=== PATIENT | female | born 1950 | race Caucasian/White ===

== ENCOUNTER 2019-11-16 11:11 | Outpatient (CLI) | payer BC, SELFPAY ==
--- NOTE | 2019-11-16 11:23 | XRR_ITS ---
PROCEDURE INFORMATION: Exam: XR Bilateral Hips with Pelvis when Performed Exam date and time: 11/16/2019 11:55 AM Age: 69 years old Clinical indication: Hip pain; Bilateral; Additional info: Pain in left hip TECHNIQUE: Imaging protocol: XR bilateral hips with pelvis when performed. Views: 2 views. COMPARISON: CR XR hip RT 2-3V wo/w pel* [id number] 11/16/2019 11:44 AM FINDINGS: Bones/joints: Unremarkable. No acute fracture. Soft tissues: Unremarkable. XR/XR hip BI 3-4V wo/w pel [id number] IMPRESSION: No acute findings.
--- NOTE | 2019-11-16 11:23 | XR_ITS ---
WS: [id number] Lumbar spine, 3 views, 11/16/2019 Clinical Data: LUMBAGO W/R SIDED SCIATICA Comparison: Lateral lumbar spine, 05/22/2017. Lumbar spine, 08/20/2015. Findings: There is a levoscoliosis with a compression fracture of L3 unchanged from 5 years ago. Osteoarthritis of the anterior vertebral bodies L1-L5 can be seen. The disc heights are diminished at L1-L2, L2-L3 and L3-L4. The transverse processes and SI joints are nonremarkable. There is calcification of the wall of the a bdominal aorta but no aneurysm. There are clips in the right upper quadrant from a cholecystectomy. T here is a large amount of fecal material throughout the colon. XR/XR lumbar spine 2-3V* [id number] Impression: 1. Levoscoliosis with old L3 compression fracture. 2. Multilevel osteoarthritis in disc narrowing unchanged.
== END 2019-11-16 11:12 | disposition home or self-care (01) ==
LOC: RAD 11:18
PROVIDERS: Family Provider Family Medicine; PCP Family Medicine; Visit Provider Nurse Practitioner
DX: M54.41 Lumbago with sciatica, right side (principal); M47.896 Other spondylosis, lumbar region; M25.552 Pain in left hip; M25.551 Pain in right hip
CPT/HCPCS: 72100; 73502; 73522

== ENCOUNTER 2020-03-26 10:56 | Outpatient (CLI) | payer MEDICARE, SELFPAY ==
--- NOTE | 2020-03-26 11:09 | MM_ITS ---
WS: [id number] BILATERAL SCREENING DIGITAL MAMMOGRAM WITH CAD HISTORY: SCREENING COMPARISON: 11/27/2015 Bilateral CC and MLO views submitted. Computer aided detection analyzed. Breast composition: There are scattered areas of fibroglandular density. No suspicious masses, microc alcifications or architectural distortion. Benign vascular calcifications in each breast. Stable lymp h node in the LEFT axillary tail. MM/[place] [id number] IMPRESSION: BI-RADS: 2-Benign FOLLOW UP: 1 Year Follow-up
== END 2020-03-26 10:57 | disposition home or self-care (01) ==
LOC: RADSHAW 11:06
PROVIDERS: PCP Family Medicine; Visit Provider Plastic Surgery
DX: Z12.31 Encounter for screening mammogram for malignant neoplasm of breast (principal)
CPT/HCPCS: 77067

== ENCOUNTER → 2021-04-05 14:14 | Outpatient (BNVA) | payer MEDICARE, SELFPAY | PROVIDERS: PCP Family Medicine; Visit Provider Emergency Medicine | DX: Z01.812 Encounter for preprocedural laboratory examination (principal); Z20.822 Contact with and (suspected) exposure to COVID-19 | CPT/HCPCS: 87635 ==

== ENCOUNTER 2021-07-08 11:36 | Outpatient (CLI) | payer MEDICARE, SELFPAY ==
--- NOTE | 2021-07-08 11:45 | MM_ITS ---
WS: [id number] BILATERAL DIGITAL SCREENING MAMMOGRAPHY WITH CAD CLINICAL INFORMATION: SCREENING HISTORY: Screening mammogram. No current complaints. COMPARISON: March 26, 2020 TECHNIQUE: Bilateral CC and MLO views. FINDINGS: Scattered fibroglandular densities bilaterally. Vascular calcification. Benign punctate calcification s. No suspicious focal mass, asymmetry, calcifications, or architectural distortion. No evidence of m alignancy. MM/[place] [id number] IMPRESSION: BI-RADS: 2-Benign FOLLOW UP: 1 Year Follow-up Recommend return to annual screening mammography.
== END 2021-07-08 11:37 | disposition home or self-care (01) ==
LOC: RADSHAW 11:43
PROVIDERS: PCP Family Medicine; Visit Provider Nurse Practitioner Family
DX: Z12.31 Encounter for screening mammogram for malignant neoplasm of breast (principal)
CPT/HCPCS: 77067

== ENCOUNTER 2021-12-04 12:09 | Outpatient (CLI) | payer MEDICARE, SELFPAY ==
--- NOTE | 2021-12-04 12:16 | XRR_ITS ---
PROCEDURE INFORMATION: Exam: XR Right Foot Exam date and time: 12/04/2021 12:16 PM Age: 71 years old Clinical indication: Right; Patient HX: C/O RT foot pain. Had recent ingrown toenail and got infected on great toe. ; Additional info: Right foot pain TECHNIQUE: Imaging protocol: XR Right foot. Views: 3 or more views. COMPARISON: No relevant prior studies available. FINDINGS: Bones/joints: Negative for acute bony abnormality. Soft tissues: Normal. XR/XR foot RT min 3V* [id number] IMPRESSION: No acute findings.
== END 2021-12-04 12:10 | disposition home or self-care (01) ==
LOC: RAD 12:12
PROVIDERS: PCP Nurse Practitioner Family; Visit Provider Nurse Practitioner Family
DX: M79.671 Pain in right foot (principal)
CPT/HCPCS: 73630

== ENCOUNTER 2022-01-30 21:43 | Emergency (ER) | payer MEDICARE, SELFPAY ==
[2022-01-30 22:45] VITALS: BP 147/87; PULSE 90; RESP 20; TEMP 36.6; O2SAT 94
--- NOTE | 2022-01-30 23:29 | W.ED.EYEPROB ---
HPI - Eye Problem General: Chief complaint: Eye Problems Stated complaint: Spider bite on left eye/cheek Time Seen by Provider: 01/30/22 23:20 History of Present Illness: 71-year-old female comes in today with swelling to the left face. Patient reports about 8:00 this morning she was storing away her when her close into the closet. Patient felt a sting to the left side of her face. Throughout the day patient's had increased swelling and tenderness to the left side of the face. Patient believes it was a wasp. Family reports that they did find a wasp or hornet that was flying around. Patient has some significant swelling and pain to the area. Patient denies any shortness of breath or chest discomfort Associated symptoms: Denies fever(s) or neck pain Review of Systems Const: Denies: fever(s) Card: Denies: chest pain Resp: Denies: dyspnea Musc: Denies: neck pain or back pain Skin/Breast: Reports: skin swelling and new lesions All/Imm: Reports: facial swelling Physical Exam Const: COMMON NORMALS: alert HENMT: COMMON NORMALS: TM's normal bilaterally and Normal external nose present HEAD & SCALP: other (Right scratch that left facial cheek and periorbital swelling) NOSE: Normal external nose present TYMPANIC MEMBRANE: TM's normal bilaterally MOUTH: Normal oral and palatal mucosa present THROAT: posterior oropharynx normal Neck/C-Spine: COMMON NORMALS: full ROM Resp: COMMON NORMALS: normal respiratory effort and clear to auscultation bilaterally AUSCULTATION: clear to auscultation bilaterally Cardio: COMMON NORMALS: regular rate and regular rhythm RATE: regular rate RHYTHM: regular rhythm Extremity: COMMON NORMALS: normal to inspection Neuro: SENSORIUM/ORIENTATION: Yes alert Skin: COMMON NORMALS: no rashes or lesions noted GENERAL SKIN EXAM: no rashes or lesions noted Course Vital Signs: Vital signs: Vital Signs Temperature 97.8 F 01/30/22 22:45 Pulse Rate 90 01/30/22 22:45 Respiratory Rate 20 H 01/30/22 22:45 Blood Pressure 147/87 01/30/22 22:45 Pulse Oximetry 94 01/30/22 22:45 MDM - Eye Problem Medical Decision Making 71-year-old female comes in today with facial swelling to the left periorbital area. Patient reported being stung or bitten by a wasp this morning. On exam patient has significant swelling to the periorbital region of the left face. Visualization of the left eye indicates no abnormality and patient is able to visualize without any difficulty. No oropharyngeal swelling is noted. Respirations are even lungs are clear to auscultation. Vital signs are normal. Differential diagnosis includes not limited to local reaction to insect bite, allergic reaction, cellulitis. No signs of infection are noted at this time. We will go ahead and treat with steroids to help with the swelling around the face. Recommended patient monitor for fever. Recommend return to the ER for any signs of fever or worsening symptoms such as difficulty breathing, nausea vomiting, or chest pain. Patient and family both reported understanding. Discharge Plan Discharge Patient Disposition: Home Clinical Impression: Insect bite of face with local reaction Qualifiers: Encounter type: initial encounter Qualified Code(s): S00.86XA - Insect bite (nonvenomous) of other part of head, initial encounter Condition: Stable Prescriptions: New prednisone 20 mg tablet 60 mg PO DAILY 5 Days Qty: 15 0RF No Action albuterol sulfate 2.5 mg /3 mL (0.083 %) solution for nebulization 2.5 mg inhalation Q4H PRN0RF triamcinolone acetonide [Nasacort] 55 mcg aerosol,spray 1 spray intranasal DAILY 0RF Rx Instructions: administer into each nostril Discharge Orders: Discharge ED (Routine); Ordered 01/30/22 Ordered By: Sam Guadalupe Referrals: Kayy Carter FNP [Primary Care Provider] - Discharge Diet: Usual diet Discharge Activity: Increase activity as tolerated Patient Instructions: Insect Bite or Sting (ED) Activity Restrictions/Additional Instructions: Home and rest. Take Zyrtec or Claritin 1 tablet twice a day to help with swelling and itching. Drink plenty of water. You can use acetaminophen and ibuprofen for pain. Make sure to elevate your head for the next 2 to 3 days to help prevent worsening swelling at night. Follow-up with primary care in 3 days for recheck. Return to ER for worsening symptoms such as uncontrolled pain, high fever greater than 100.4, or difficulty breathing. Coding Level of Care Code ED Instructional Technology Teacher for Booker Yadav
[2022-01-31] MEDS: dexamethasone 10 mg/mL INJ IM (00:04)
[2022-01-31] MEDS: methylPREDNISolone (DEPO) 80 MG/ML INJ 1 mL IM (00:04)
[2022-01-31] MEDS: HYDROcodone-acetaminophen 5-325 mg Tablet 1 TAB PO (00:04)
== END 2022-01-31 00:44 | disposition home or self-care (01) ==
PROVIDERS: Emergency Provider Nurse Practitioner Family; PCP Nurse Practitioner Family
DX: T63.441A Toxic effect of venom of bees, accidental (unintentional), initial encounter (principal); R22.0 Localized swelling, mass and lump, head
CPT/HCPCS: 96372; 99283; J1040; J1100

== ENCOUNTER 2022-03-07 14:51 | Emergency (ER) | payer MEDICARE, SELFPAY ==
[2022-03-07 15:00] VITALS: BP 139/82; PULSE 116; RESP 16; TEMP 37.9; O2SAT 96; BMI 27.1
--- NOTE | 2022-03-07 15:29 | ECG_ITS ---
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 Measurements Intervals [place] Rate: 103 P: 65 FL: 175 QRS: 67 QRSD: 79 T: 70 QT: 346 QTc: 455 Interpretive Statements SINUS TACHYCARDIA No previous ECG available for comparison Electronically Signed On 03-07-2022 20:42:06 CDT by Wallace Peña M.D. [id number]
--- NOTE | 2022-03-07 16:28 | ED_ITS ---
HPI - General Adult General: Chief complaint: General Medical Stated complaint: heart racing/headache Time Seen by Provider: 03/07/22 16:11 History of Present Illness: Patient is a 71-year-old female with history of diabetes, hypertension who presents the emergency room with concerns of palpitation and headache. Patient tells me that she drank two cups of coffee and went gardening outside and stayed outside for longer period time than usual. Patient tells me that she came home at 10 and around 1130 this morning, she noted palpitation and headache. Patient denies any diaphoresis, chest pain, shortness of breath, headedness or syncope. Patient says that this only lasted for few minutes. However throughout the rest of the day, patient has had similar episodes of palpitation. Most recently, patient had an episode of palpitation lasting for about a minute in triage. Patient again denies any active chest pain or shortness of breath or focal neurological deficits. Patie nt denies any thyroid issues. Denies nausea/vomiting, fever/chill, abdominal pain, dysuria/hematuria/polyuria, diarrhea/melena/hematochezia. Patient denies that this headache is not worst headache of life and sudden in onset. Headache only lasted for few minutes and then was clear. Patient has no family history of aneurysms or family history of headaches. Patient denies any active palpitation at the current time. Onset:11:30am Duration:intermittent lasting for a minute at a time Location:home Severity:moderate Associated symptoms: Reports headache(s) and palpitations; Deny chest pain, dyspnea, nausea, rash or vomiting Review of Systems Const: Denies: fever(s) or chills Eyes: Denies: change in vision ENMT: Denies: mouth pain Card: Reports: palpitations; Denies: chest pain Resp: Denies: dyspnea or non-productive cough GI: Denies: abdominal pain, nausea, vomiting or diarrhea : Denies: dysuria Musc: Denies: extremity pain Skin/Breast: Denies: rash or new lesions Neuro: Reports: headache(s); Denies: weakness in extremities Psych: Reports: other (Normal mood) Rasheed/Lymph: Denies: easy bruising PFS ED PFSH: Medical History (Updated 03/07/22 @ 21:17 by Adam Tolliver MD) Diabetes Hypertension Palpitations Social History Smoking and tobacco status: former smoker Alcohol intake: never Physical Exam Const: COMMON NORMALS: alert HENMT: COMMON NORMALS: atraumatic HEAD & SCALP: atraumatic MOUTH: moist mucous membranes not abnormal Eye: COMMON NORMALS: EOMs intact bilaterally and conjunctivae normal CONJUNCTIVA: Yes conjunctivae normal Neck/C-Spine: COMMON NORMALS: full ROM and supple Resp: COMMON NORMALS: normal respiratory effort and clear to auscultation bilaterally AUSCULTATION: clear to auscultation bilaterally Cardio: RATE: tachycardic GI: COMMON NORMALS: Soft to palpation and non-tender PALPATION: Yes Soft to palpation Extremity: COMMON NORMALS: full ROM Neuro: SENSORIUM/ORIENTATION: Yes alert MOTOR EXAM: No Abnormal motor strength present and Other motor observations present (no focal motor deficits) Psych: COMMON NORMALS: speech normal SPEECH: Yes normal speech MOOD & AFFECT: Yes euthymic mood Course Vital Signs: Vital signs: Vital Signs Temperature 98.9 F 03/07/22 19:54 Pulse Rate 88 03/07/22 21:30 Respiratory Rate 16 03/07/22 21:30 Blood Pressure 160/85 03/07/22 21:30 Pulse Oximetry 98 03/07/22 21:30 MDM - General Adult Medical Decision Making Patient is 71-year-old female with history of diabetes, hypertension presents emergency room for intermittent palpitation with 1 episode of headache. On arrival, patient is Nuchal rigidity. Neurologically intact. Patient has no complaints of palpitation currently. Patient was observed on telemetry without any focal findings. EKG is nonischemic. Troponin x2 within normal limit. TSH/T4 within normal limit. Patient received 1 L fluid. Patient is able to ambulate without difficulty. Patient is able tolerate p.o. Troponin 45. Patient had a repeat troponin of 32. Patient has no complaints of palpitation. 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 Discussed case with Dr. Peña who recommended outpatient event monitor and a script for metoprolol should patient have further palpitations. I have given patient follow up with our corrections caseworker to be seen by our outpatient Dr. Peña for palpitations. Patient aware of a call from our corrections caseworker to schedule for appointment(s) and verbalizes understanding of the importance of following up. Rx metoprolol PRN palpitations Disposition: Discharge. Patient counseled regarding diagnostic impression, treatment plan. Patient given ED strict return precautions to return for continu ation, worsening, or development of new symptoms. Instructed to f/u w/ PCP regarding symptoms today. Patient verbalized understanding. Lab Data : 03/07/22 16:20 03/07/22 16:20 Laboratory Results WBC 8.7 10^3/uL (4.0-10.0) 03/07/22 16:20 RBC 3.95 10^6/uL (4.1-5.3) L 03/07/22 16:20 Hgb 13.0 g/dL (11.5-15.3) 03/07/22 16:20 Hct 36.7 % (37.0-47.0) L 03/07/22 16:20 MCV 92.9 fl (81-99) 03/07/22 16:20 MCH 32.9 pg (28.0-34.0) 03/07/22 16:20 MCHC 35.4 g/dL (30.0-36.0) 03/07/22 16:20 RDW 12.6 % (12.1-15.1) 03/07/22 16:20 Plt Count 391 10^3/cmm (130-400) 03/07/22 16:20 MPV 9.5 fL (7.4-10.4) 03/07/22 16:20 Neut % (Auto) 69.6 % 03/07/22 16:20 Lymph % (Auto) 17.3 % 03/07/22 16:20 Simpson % (Auto) 11.8 % 03/07/22 16:20 Eos % (Auto) 0.3 % 03/07/22 16:20 Baso % (Auto) 0.7 % 03/07/22 16:20 Neut # (Auto) 6.07 10^3/uL (1.8-7.7) 03/07/22 16:20 Lymph # (Auto) 1.5 10^3/uL (0.8-4.8) 03/07/22 16:20 Simpson # (Auto) 1.0 10^3/uL (0.2-0.9) H 03/07/22 16:20 Eos # (Auto) 0.0 10^3/uL (0.0-0.8) 03/07/22 16:20 Baso # (Auto) 0.1 10^3/uL (0.0-0.1) 03/07/22 16:20 Nucleated RBC % (auto) 0 % 03/07/22 16:20 Nucleated RBCs # 0.0 /100WBC 03/07/22 16:20 Sodium 133 mmol/L (136-145) L 03/07/22 16:20 Potassium 3.3 mmol/L (3.5-5.1) L 03/07/22 16:20 Chloride 96 mmol/L (98-107) L 03/07/22 16:20 Carbon Dioxide 22 mmol/L (22-29) 03/07/22 16:20 Anion Gap 18.3 (5-19) 03/07/22 16:20 BUN 19 mg/dL (8-23) 03/07/22 16:20 Creatinine 1.2 mg/dL (0.5-0.9) H 03/07/22 16:20 GFR Calculation Not Reportable 03/07/22 16:20 Glucose 248 mg/dL (65-115) H 03/07/22 16:20 Calculated Osmolality 287 mOsm/kg (285-295) 03/07/22 16:20 Calcium 9.2 mg/dL (8.5-10.5) 03/07/22 16:20 Troponin T Baseline 45 ng/L (0-10) H 03/07/22 16:20 Troponin T 120 Minute 32.70 ng/L (0-10) H 03/07/22 20:00 Delta Troponin T -12.30 ABS# (0-10) L 03/07/22 20:00 TSH 2.15 uIU/mL (0.27-4.20) 03/07/22 16:20 Free T4 1.16 ng/dL (0.82-1.77) 03/07/22 16:20 Discharge Plan Discharge Patient Disposition: Home Clinical Impression: Palpitations Condition: Stable Prescriptions: New metoprolol tartrate 25 mg tablet 25 mg PO DAILY PRN (Reason: palpitations) Qty: 10 0RF No Action albuterol sulfate 2.5 mg /3 mL (0.083 %) solution for nebulization 2.5 mg inhalation Q4H PRN (Reason: Shortness Of Breath) 0RF triamcinolone acetonide [Nasacort] 55 mcg aerosol,spray 1 spray intranasal DAILY 0RF Rx Instructions: administer into each nostril trandolapril 4 mg tablet 4 mg PO DAILY 0RF ibuprofen 800 mg tablet 800 mg PO TID PRN (Reason: Pain) 0RF hydrocodone-acetaminophen 5-325 mg tablet 1 tab PO BID PRN (Reason: Pain) 0RF diltiazem HCl 360 mg capsule,extended release 24 hr 360 mg PO DAILY 0RF amlodipine 5 mg tablet 5 mg PO DAILY 0RF simvastatin 40 mg tablet 40 mg PO DAILY 0RF alprazolam 0.5 mg tablet 0.5 mg PO DAILY 0RF baclofen 10 mg tablet 10 mg PO BID PRN (Reason: Pain) 0RF paroxetine HCl 20 mg tablet 20 mg PO DAILY 0RF omeprazole 20 mg Capsule,Delayed Release(Dr/Ec) 20 mg PO DAILY 0RF epinephrine 0.3 mg/0.3 mL auto-injector See Rx Instructions .ROUTE .COMPLEX 0RF Rx Instructions: as directed Zyrtec 10 mg Capsule 10 mg PO BID 0RF Discharge Orders: Discharge ED (Routine); Ordered 03/07/22 Ordered By: Adam Tolliver Other Ambulatory Orders: ECG holter monitor 14 Days (Routine) Timeframe: 2 Weeks Facility: [facility] - Location: Radiology Ordered By: Adam Tolliver Referrals: Kayy Carter FNP [Primary Care Provider] - Discharge Diet: Advance as tolerated Discharge Activity: Increase activity as tolerated Activity Restrictions/Additional Instructions: Our corrections caseworker will have you follow-up with Cardiology in the next few days. You would be expected to have a phone call with our corrections caseworker who will put you on the schedule. You can expect a call from us in the next 2-3 days. If you don't hear from us, call us back in the emergency room at [phone]. Please use your event monitor for your symptoms. Take metoprolol Come back to the emergency room if your chest pain worsens, have any fever or chills, worsening shortness of breath, worsening exertional lightheadedness, or any new or concerning complaints. Coding Level of Care Code ED Aircraft Engine Assembler for Booker Yadav Exam Comprehensive
[2022-03-07 16:34] LABS: Basophils # 0.1 10^3/uL (0.0-0.1); Basophils % 0.7 %; Eosinophils % 0.3 %; Hematocrit 36.7 % (37.0-47.0); Lymphocytes # 1.5 10^3/uL (0.8-4.8); Lymphocytes % 17.3 %; Mean Corpuscular HGB Conc 35.4 g/dL (30.0-36.0); Mean Corpuscular Hemoglobin 32.9 pg (28.0-34.0); Mean Corpuscular Volume 92.9 fl (81-99); Mean Platelet Volume 9.5 fL (7.4-10.4); Monocytes % 11.8 %; Neutrophils # 6.07 10^3/uL (1.8-7.7); Neutrophils % 69.6 %; Nucleated Red Blood Cells % 0 %; Platelet Count 391 10^3/cmm (130-400); Red Blood Count 3.95 10^6/uL (4.1-5.3); Red Cell Distribution Width 12.6 % (12.1-15.1); White Blood Count 8.7 10^3/uL (4.0-10.0)
[2022-03-07 16:54] LABS: Anion Gap 18.3 (5-19); Blood Urea Nitrogen 19 mg/dL (8-23); Calcium 9.2 mg/dL (8.5-10.5); Carbon Dioxide 22 mmol/L (22-29); Chloride 96 mmol/L (98-107); Glucose 248 mg/dL (65-115); Osmolality Calculated 287 mOsm/kg (285-295); Potassium 3.3 mmol/L (3.5-5.1); Sodium 133 mmol/L (136-145)
[2022-03-07] MEDS: sodium chloride 0.9% 1,000 ML 999 ML IV (17:01)
[2022-03-07 17:22] LABS: Free T4 Free Thyroxine 1.16 ng/dL (0.82-1.77); Thyroid Stimulating Hormone 2.15 uIU/mL (0.27-4.20)
[2022-03-07 18:36] VITALS: BP 124/90; BP 144/79; BP 175/80; PULSE 82; PULSE 87; PULSE 92
[2022-03-07 18:43] VITALS: BP 124/90; PULSE 92; RESP 17
--- NOTE | 2022-03-07 19:40 | ECG_ITS ---
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 Measurements Intervals [place] Rate: 78 P: 62 MA: 161 QRS: 72 QRSD: 91 T: 75 QT: 405 QTc: 464 Interpretive Statements SINUS RHYTHM Compared to ECG 03/07/2022 15:57:50 Sinus tachycardia no longer present Electronically Signed On 03-07-2022 20:41:35 CDT by Wallace Peña M.D. [email or web address] tripoint medical [email or web address]/OM/[id number]
[2022-03-07 19:54] VITALS: BP 155/78; PULSE 78; RESP 18; TEMP 37.2; O2SAT 97
[2022-03-07 19:59] LABS: Troponin(5th) Baseline 45 ng/L (0-10)
[2022-03-07 21:30] VITALS: BP 160/85; PULSE 88; RESP 16; O2SAT 98
--- NOTE | 2022-03-09 08:16 | DCPLANNER ---
Addendum entered by Carline Kong 05/13/22 13:00: Patient had a follow up appointment scheduled for 05.06.22 with [facility] - patient did attend appointment. Addendum entered by Carline Kong 04/13/22 15:32: Patient had a follow up appointment scheduled for 03.18.22 for a 14 day halter at [facility] - patient did attend appointment. Addendum entered by Carline Kong 04/11/22 17:31: Patient had an outpatient holter monitor appointment scheduled for 03.18.22 - patient did attend appointment. Patient has a follow up appointment scheduled for Friday, May 06, 2022 at 1:[address] Peña. Clinic will call patient with appointment information. Addendum entered by Carline Kong 03/10/22 05:46: operating room manager had message to schedule an outpatient holter monitor for patient. operating room manager faxed signed order to [facility] for monitor. Clinic will call patient with appointment information. Original Note: operating room manager had message to schedule a follow up appointment for patient with cardiology. operating room manager sent patients information to the front office staff at [facility]. Patients information will be printed and reviewed. Clinic will call patient with appointment information.
== END 2022-03-07 21:32 | disposition home or self-care (01) ==
PROVIDERS: Family Medicine; Emergency Provider Emergency Medicine; PCP Nurse Practitioner Family
DX: R00.2 Palpitations (principal); R51.9 Headache, unspecified; Z79.899 Other long term (current) drug therapy; Z87.891 Personal history of nicotine dependence
CPT/HCPCS: 36415; 80048; 84439; 84443; 84484; 85025; 93005; 96360; 99284; J7030

== ENCOUNTER → 2022-03-18 10:53 | Outpatient (BNVA) | payer MEDICARE, SELFPAY | PROVIDERS: PCP Nurse Practitioner Family; Visit Provider Internal Medicine | DX: R00.2 Palpitations (principal); I47.1 Supraventricular tachycardia; I49.3 Ventricular premature depolarization | CPT/HCPCS: 93246 ==

== ENCOUNTER → 2022-03-28 14:06 | Outpatient (BNVA) | payer MEDICARE, SELFPAY | PROVIDERS: PCP Nurse Practitioner Family; Visit Provider Podiatrist Foot & Ankle Surgery | DX: G57.61 Lesion of plantar nerve, right lower limb (principal); M79.671 Pain in right foot | CPT/HCPCS: 64455; 99203; J1100; J3301; J3490 ==

== ENCOUNTER → 2022-05-02 13:04 | Outpatient (BNVA) | payer MEDICARE, SELFPAY | PROVIDERS: PCP Nurse Practitioner Family; Visit Provider Podiatrist Foot & Ankle Surgery | DX: G57.61 Lesion of plantar nerve, right lower limb (principal) | CPT/HCPCS: 99213; 99214 ==

== ENCOUNTER → 2022-05-06 12:38 | Outpatient (BNVA) | payer MEDICARE, SELFPAY | PROVIDERS: PCP Nurse Practitioner Family; Visit Provider Internal Medicine | DX: I47.1 Supraventricular tachycardia (principal); I10 Essential (primary) hypertension; R00.2 Palpitations; R01.1 Cardiac murmur, unspecified | CPT/HCPCS: 93005; 99203; 99204 ==

== ENCOUNTER 2023-11-30 11:14 | Outpatient (CLI) | payer MEDICARE, SELFPAY ==
--- NOTE | 2023-11-30 11:23 | XRR_ITS ---
PROCEDURE INFORMATION: Exam: XR Lumbosacral Spine Exam date and time: 11/30/2023 11:35 AM Age: 73 years old Clinical indication: Low back pain; Additional info: Back pain w/r sided sciatica/hip pain TECHNIQUE: Imaging protocol: Radiologic exam of the lumbosacral spine. Views: 4 or 5 views. COMPARISON: CR XR lumbar spine 2-3V* [id number] 11/16/2019 11:44 AM FINDINGS: Bones/joints: Multilevel intervertebral disc space narrowing and sclerosis is seen with bone spurs consistent with severe osteoarthritis. There is an apparent compression fracture involving the right side of the L3 vertebral body. There is associated levoscoliosis from L1-L4. The Perez angle is 34 degrees. No acute fracture. Normal alignment. Soft tissues: The abdominal aorta is ectatic and calcified. Status post cholecystectomy XR/XR lumbar spine min 4V [id number] IMPRESSION: 1. Osteopenia and osteoarthritis in the spine. 2. Compression fracture L3 vertebral body. 3. Lumbar spine levoscoliosis Perez angle is 34 degrees 4. Cholecystectomy. 5. Calcified ectatic abdominal aorta
--- NOTE | 2023-11-30 11:23 | XRR_ITS ---
PROCEDURE INFORMATION: Exam: XR Bilateral Hips Exam date and time: 11/30/2023 11:35 AM Age: 73 years old Clinical indication: Hip pain; Bilateral; Additional info: Back pain w/r sided sciatica/hip pain, to include the pelvis TECHNIQUE: Imaging protocol: Radiologic exam of the bilateral hips. Views: 2 views of hips with pelvis when performed. COMPARISON: CR XR hip BI 3-4V wo/w pel [id number] 11/16/2019 11:51 AM FINDINGS: Bones/joints: Unremarkable. No acute fracture. Soft tissues: Unremarkable. XR/XR hip BI m 5V wo/w pel* [id number] IMPRESSION: No acute findings.
== END 2023-11-30 11:15 | disposition home or self-care (01) ==
LOC: RAD 11:20
PROVIDERS: PCP Nurse Practitioner Family; Visit Provider Nurse Practitioner Family
DX: M54.41 Lumbago with sciatica, right side (principal); M25.552 Pain in left hip; M25.551 Pain in right hip
CPT/HCPCS: 72110; 73523

== ENCOUNTER 2023-12-21 14:11 | Outpatient (CLI) | payer MEDICARE, SELFPAY ==
--- NOTE | 2023-12-21 14:15 | XR_ITS ---
WS: [id number] DEXA (DUAL ENERGY X-RAY ABSORPTIOMETRY) Bone mineral density was performed using a [employer] machine. HISTORY: POSTMENOPAUSAL/HX OF OSTEOPENIA COMPARISON: None available. Lumbar spine BMD (L1-L4): 1.080 g/cm2 T score: -0.8 Z score: 1.3 Total hip BMD: Left: 0.613 g/cm2. T score: -3.1 Z score: -1.1 Right: 0.517 g/cm2. T score: -3.9 Z score: -1.9 10 year probability of a major osteoporotic fracture is 28.9%. Severe LEFT curvature of the lumbar spine with increasing sclerosis along the concave curvature. IMPRESSION: OSTEOPOROSIS based upon the WHO classification for females.
== END 2023-12-21 14:12 | disposition home or self-care (01) ==
LOC: RAD 14:11
PROVIDERS: PCP Nurse Practitioner Family; Visit Provider Nurse Practitioner Family
DX: Z78.0 Asymptomatic menopausal state (principal); M81.0 Age-related osteoporosis without current pathological fracture
CPT/HCPCS: 77080

== ENCOUNTER → 2024-01-04 10:42 | Outpatient (BNVA) | payer MEDICARE, SELFPAY | PROVIDERS: PCP Nurse Practitioner Family; Visit Provider Anesthesiology Pain Medicine | DX: M51.16 Intervertebral disc disorders with radiculopathy, lumbar region | CPT/HCPCS: 99204 ==

== ENCOUNTER 2024-02-10 10:22 | Outpatient (CLI) | payer MEDICARE, SELFPAY ==
--- NOTE | 2024-02-10 11:00 | MRR_ITS ---
PROCEDURE INFORMATION: Exam: MR Lumbar Spine Without Contrast Exam date and time: 02/10/2024 10:39 AM Age: 73 years old Clinical indication: Low back pain; Additional info: M54.16 - radiculopathy, lumbar region TECHNIQUE: Imaging protocol: Magnetic resonance imaging of the lumbar spine without contrast. COMPARISON: MR lumbar spine wo luis* [id number] 05/22/2017 2:56 PM FINDINGS: Bones/joints: No evidence of acute fracture or subluxation. Moderate levoscoliosis centered at L3. Severe multilevel spondylosis of the lumbar spine with facet arthrosis, osteophytosis and endplate degeneration. Chronic L3 vertebral body compression fracture with anterior wedging and 40% maximal height loss. 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 Spinal cord: Visualized cord signal is unremarkable. Conus terminates at L1. L1-L2: Disc bulge and moderate-severe facet arthrosis results in moderate bilateral foraminal stenosis with contacting of the exiting L1 nerve roots bilaterally. No central stenosis. L2-L3: Disc bulge and moderate-severe facet arthrosis results in severe right-sided and moderate left-sided foraminal stenosis. There is impingement of the exiting right L2 nerve root and contacting of the left L2 nerve root. Moderate narrowing of the midline thecal sac to 6 mm in AP diameter with partial effacement of the right lateral recess and crowding of the cauda equina nerve roots. L3-L4: Disc bulge, severe facet arthrosis and ligamentum hypertrophy results in severe right-sided and mild left-sided foraminal stenosis. There is impingement of the exiting right L3 nerve root. Moderate narrowing of the midline thecal sac to 6 mm in AP diameter with crowding of the cauda equina nerve roots and partial effacement of the right lateral recess. L4-L5: Disc bulge, ligamentum hypertrophy and severe facet arthrosis results in severe right-sided and moderate-severe left-sided foraminal stenosis. There is impingement of the exiting right L4 nerve root and contacting of the exiting left L4 nerve root. Moderate-severe central stenosis with effacement of the left lateral recess and impingement of the descending left L5 nerve root (image 23 of series 9). L5-S1: Disc bulge, ligamentum hypertrophy and severe facet arthrosis results in severe left-sided and moderate right-sided foraminal stenosis. There is impingement of the exiting left L5 nerve root (images 7-8 of series 7). Slight contacting of the undersurface of the exiting left L5 nerve root. Soft tissues: Paraspinal soft tissues are unremarkable. No evidence of retroperitoneal hemorrhage or fluid collection. MR/MR lumbar spine wo con* [id number] IMPRESSION: 1. Severe multilevel spondylosis with multilevel moderate-severe central stenosis resulting in crowding/impingement of the cauda equina nerve roots. 2. Impingement of the exiting right L2, right L3, right L4 and left L5 nerve roots.
== END 2024-02-10 10:23 | disposition home or self-care (01) ==
LOC: RAD 10:22
PROVIDERS: PCP Nurse Practitioner Family; Visit Provider Anesthesiology Pain Medicine
DX: M54.16 Radiculopathy, lumbar region (principal); M51.36 Other intervertebral disc degeneration, lumbar region; M53.3 Sacrococcygeal disorders, not elsewhere classified; M48.08 Spinal stenosis, sacral and sacrococcygeal region; M47.896 Other spondylosis, lumbar region; M47.898 Other spondylosis, sacral and sacrococcygeal region; M99.63 Osseous and subluxation stenosis of intervertebral foramina of lumbar region; G83.4 Cauda equina syndrome
CPT/HCPCS: 72148

== ENCOUNTER → 2024-02-18 10:32 | Outpatient (BNVA) | payer MEDICARE, SELFPAY | PROVIDERS: PCP Nurse Practitioner Family; Visit Provider Anesthesiology Pain Medicine | DX: M51.16 Intervertebral disc disorders with radiculopathy, lumbar region | CPT/HCPCS: 99214 ==

== ENCOUNTER 2024-06-09 08:34 | Inpatient (IN) | payer MEDICARE, SELFPAY ==
[2024-06-09] VITALS (8 sets, daily range): BP systolic 116–147; BP diastolic 62–94; PULSE 76–100; RESP 16–18; TEMP 36.8–37.4; O2SAT 91–96; BMI 24.2
--- NOTE | 2024-06-09 08:36 | XR_ITS ---
WS: [id number] Acute abdomen series, 06/09/2024 Clinical Data: abdominal pain Comparison: Chest with right rib detail, 11/07/2009 Findings: No nodules, masses or effusions are seen. The heart is normal. The pulmonary vascularity is not increased. No pneumonia or pneumothorax is seen. The aortic arch and descending thoracic aorta s how tortuosity and minimal calcification. There is a dextroscoliosis of the thoracic spine. Comparison: None. Findings: The flat and upright films the abdomen show dilated central bowel loops with a diameter of 4.6 cm. There is a large amount of fecal material throughout the colon. No free air is seen. No abnor mal intra-abdominal masses or calcifications are seen. There are clips in the right upper quadrant fr om a cholecystectomy. There is a levoscoliosis of the lumbar spine. XR/XR acute abdomen series [id number] Impression: Atherosclerosis. Clinical Data: abdominal pain Impression: 1. Dilated central small bowel loops which may be an acute bowel obstruction. 2. Large amount of fecal material throughout the colon.
[2024-06-09] MEDS: sodium chloride 0.9% 1,000 ML 999 ML IV (09:05)
[2024-06-09] MEDS: ondansetron 2 mg/ML SDV 2 mL 4 MG IVP (09:11)
[2024-06-09] MEDS: morphine 4 mg/mL SDV 1 mL 2 MG IVP (09:11)
[2024-06-09 09:24] LABS: Basophils % 0.6 %; Eosinophils % 0.2 %; Hematocrit 40.5 % (36-47); Mean Corpuscular HGB Conc 34.3 g/dL (30-55); Mean Corpuscular Hemoglobin 31.2 pg (27-33); Mean Platelet Volume 10.4 fL (7.4-10.4); Monocytes # 0.9 10^3/uL (0.2-0.9); Monocytes % 13.5 %; Neutrophils % 70.5 %; Nucleated Red Blood Cells % 0 %; Platelet Count 463 10^3/cmm (157-399); Red Blood Count 4.45 10^6/uL (3.85-5.65); Red Cell Distribution Width 11.7 % (12.1-15.1); White Blood Count 6.52 10^3/uL (3.29-11.43)
[2024-06-09 09:45] LABS: Lactic Sepsis W/Reflex 1.5 mmol/L (0.5-2.2)
[2024-06-09 09:46] LABS: Alanine Aminotransferase 8 U/L (0-33); Alkaline Phosphatase 102 U/L (35-105); Anion Gap 20.9 (5-19); Aspartate Amino Transferase 18 U/L (0-32); Blood Urea Nitrogen 22 mg/dL (8-23); C Reactive Protein 23.2 mg/L (0.0-4.9); Calcium 9.5 mg/dL (8.5-10.5); Carbon Dioxide 24 mmol/L (22-29); Chloride 91 mmol/L (98-107); Creatinine Clr Calc Pharmacy 31.8442; Globulin 3.1 g/dL (1.3-4.6); Glucose 142 mg/dL (65-115); Lipase 26 U/L (13-60); Osmolality Calculated 280 mOsm/kg (285-295); Potassium 3.9 mmol/L (3.5-5.1); Sodium 132 mmol/L (136-145); Total Bilirubin 0.4 mg/dL (0.15-1.2); Total Protein 7.1 g/dL (6.6-8.7)
--- NOTE | 2024-06-09 10:26 | CT_ITS ---
WS: [id number] CT ABDOMEN AND PELVIS WITH CONTRAST HISTORY: Abdominal pain TECHNIQUE: Imaging performed of the abdomen and pelvis with IV contrast. Single phase imaging of the abdomen. Coronal and sagittal reformats are submitted. All CT scans at [facility] use at [address] one of these dose optimization techniques: automated exposure control; mA and/or kV adjustment per patient size (includes targeted exams where dose is matched to clinical indication); or iterative re construction. IV CONTRAST: Omnipaque 350; 100 mL IV. Oral contrast: No DLP: 406.93 mGy.cm COMPARISON: None available. Lower thorax: Lung bases are clear. Heart is normal size. No hiatal hernia. Liver/biliary system: Focal fatty sparing along the falciform ligament. There is a minimal central bi le duct dilatation. Common bile duct is dilated on the basis of the cholecystectomy. Gallbladder: Status post cholecystectomy. Pancreas: Normal size pancreas and pancreatic duct. No adjacent inflammation. Spleen: Normal size spleen. No mass or infarct. Adrenal glands: Normal. Right kidney: Mild renal atrophy with cortical cysts. Some of these are too small to characterize. No obstruction. Left kidney: Mild renal atrophy with cortical cysts. No obstruction. Aorta: Moderate atherosclerosis with no aneurysm. Dense calcification at the origin of the celiac axi s and SMA. Atherosclerotic plaque within the SMA. No thrombus or occlusions. Lymphadenopathy: None. Free fluid: Tiny mount of free fluid in the pelvis. GI tract: Stomach is markedly distended with fluid. Small bowel is markedly distended also with fluid measuring up to 4.2 cm in diameter. The distal small bowel is collapsed. There is a focal area of sm all bowel stenosis with mild wall thickening with dilated small bowel on each side of the high-grade stenosis along with tethering. This may be a closed loop obstruction. There are a few small lymph nod es at this location also which are mildly hyperemic. Increased fecal material in the RIGHT colon. Mod erate diverticular burden in the distal colon. Abdominal wall: Unremarkable abdominal wall. No hernia. Pelvis: No free fluid or adenopathy within the pelvis. Free fluid in the pelvis. Bones: Compression fracture L3. Bilateral femoral head osteonecrosis. CT/CT abdomen pelvis w con* [id number] IMPRESSION: 1. High-grade small bowel obstruction. Focal high-grade stenosis noted in the mid abdomen with dilated small bowel on each side of the stenotic bowel. Consid er closed-loop obstruction. 2. No free air at this point. Patient is at risk for perforation due to the ex tensive small bowel dilatation. No ischemia. 3. Small amount of free fluid in the pelvis. 4. Moderate atherosclerosis aorta and mesenteric arteries. Notified Jody Lara MD at 06/09/2024 11:26 AM.
[2024-06-09 10:31] LABS: Bilirubin Urine Neg (Negative); Blood Urine Neg (Negative); Glucose Urine UA Norm (Normal); Ketones Urine Negative (Negative); Leukocyte Esterase Urine Negative (Negative); Nitrate Urine Negative (Negative); Protein Urine Neg (Negative); Specific Gravity, Urine 1.015 (1.005-1.030); Urine Appearance Clear (CLEAR); Urine Color Yellow (Yellow); Urobilinogen Urine Norm (Negative); pH Urine 6 (5-7)
[2024-06-09] MEDS: iohexol 350 mg/mL 500 mL Btl (per mL) IV (11:02)
[2024-06-09 11:07] LABS: Add Urine Culture? No; Hyaline Casts Urine 15-25 /lpf; Mucus Urine TRACE /hpf; Squamous Epithelial Cell Urine 0-4 /hpf (0-5); WBC Urine 0-4 /hpf (0-5)
--- NOTE | 2024-06-09 11:09 | W.ED.ABDPA2 ---
HPI - Abdominal Pain General: Chief Complaint: Abdominal Pain Stated Complaint: Abd pain, n,v, no bm 1 wk Time Seen by Provider: 06/09/24 08:37 History of Present Illness: 73-year-old female with a history of hypertension and diabetes who presents emergency room with abdominal pain, distention and constipation. She was seen by her primary care so ago and was started on some Colace which has not helped. She has had some nausea but no vomiting. Diffuse abdominal pain but worse in the lower abdomen. No fevers. No altered mental status. No chest pain. No shortness of breath. Related Data Home Medications Medication Instructions Recorded Confirmed triamcinolone acetonide 55 mcg 1 spray intranasal DAILY PRN 04/05/21 06/09/24 nasal spray aerosol (Nasacort) allergies alprazolam 0.5 mg tablet 0.5 mg PO DAILY 03/07/22 06/09/24 amlodipine 5 mg tablet 5 mg PO DAILY 03/07/22 06/09/24 baclofen 10 mg tablet 10 mg PO BID PRN Pain 03/07/22 06/09/24 cetirizine 10 mg capsule (Zyrtec) 10 mg PO DAILY PRN allergies 03/07/22 06/09/24 diltiazem HCl 360 mg capsule,24 360 mg PO DAILY 03/07/22 06/09/24 hr,extended release hydrocodone 5 mg-acetaminophen 325 1 tab PO BID PRN Pain 03/07/22 06/09/24 mg tablet simvastatin 40 mg tablet 40 mg PO DAILY 03/07/22 06/09/24 trandolapril 4 mg tablet 4 mg PO DAILY 03/07/22 06/09/24 alendronate 70 mg tablet See Rx Instructions .Route .COMPLEX 06/09/24 06/09/24 ibuprofen 800 mg tablet 800 mg PO TID PRN Pain 06/09/24 06/09/24 nitrofurantoin 100 mg PO BID 06/09/24 06/09/24 monohydrate/macrocrystals 100 mg capsule paroxetine HCl 10 mg tablet 10 mg PO DAILY 06/09/24 06/09/24 Allergies Allergy/AdvReac Type Severity Reaction Status Date / Time gabapentin Allergy Unknown Unknown Verified 02/18/24 10:41 Review of Systems Narrative: General: Alert, no acute distress. Skin: Warm, dry. Head: Normocephalic, atraumatic. Neck: Supple, trachea midline. Eye: Extraocular movements are intact. Ears, nose, mouth and throat: Dry oral mucosa Cardiovascular: Regular, Normal peripheral perfusion. Respiratory: Lungs are clear to auscultation, respirations are non-labored, breath sounds are equal, Symmetrical chest wall expansion. Gastrointestinal: Soft, diffusely tender, mildly distended Musculoskeletal: Normal ROM, no deformity. Neurological: Alert and oriented, No focal neurological deficit observed. Psychiatric: Cooperative, appropriate mood & affect. [facility] ED PFSH: Medical History Palpitations Hypertension Diabetes Family History Father Hypertension Heart attack Social History Smoking and tobacco/nicotine status: never used tobacco/nicotine Alcohol intake: never Substance/Drug Use: never Physical Exam Narrative: EXAM NARRATIVE: General: Alert, no acute distress. Skin: Warm, dry. Head: Normocephalic, atraumatic. Neck: Supple, trachea midline. Eye: Extraocular movements are intact. Ears, nose, mouth and throat: mucosa moist. Cardiovascular: Regular, Normal peripheral perfusion. Respiratory: Lungs are clear to auscultation, respirations are non-labored, breath sounds are equal, Symmetrical chest wall expansion. Gastrointestinal: Soft, mild distention, mild generalized tenderness. Musculoskeletal: Normal ROM, no deformity. Neurological: Alert and oriented, No focal neurological deficit observed. Psychiatric: Cooperative, appropriate mood & affect. Course Vital Signs: Vital signs: Vital Signs Temperature 98.4 F 06/09/24 08:43 Pulse Rate 76 06/09/24 10:07 Respiratory Rate 18 06/09/24 08:43 Blood Pressure 143/72 06/09/24 10:07 Pulse Oximetry 96 06/09/24 10:07 Oxygen Delivery Me thod Room Air 06/09/24 10:07 MDM - Abdominal Pain Medical Decision Making Medical decision making: Differential diagnosis including but not limited to and based on the above HPI, review of systems and physical exam: - patient with complaint of constipation: Small bowel obstruction. Gastroparesis. Constipation. Also evaluation for urinary retention, liver disease, renal failure. Orders placed to evaluate differential diagnosis based on the above differential, HPI and physical exam Acute abdominal series: chest x-ray: No acute process. No obvious infiltrates. No pneumothorax. No cardiomegaly. This was reviewed and interpreted by myself the emergency room physician Abdomen x-ray: Dilated central small bowel loops which may be a small bowel obstruction. This was reviewed and interpreted by myself the emergency room physician. CT of the abdomen pelvis with contrast: High-grade small bowel obstruction. Focal high-grade stenosis noted in the mid abdomen with dilated small bowel on the side of the stenotic bowel. Consider closed-loop obstruction. I discussed these findings with the radiologist on-call and with surgeon on-call. This was reviewed and interpreted by myself the emergency room physician. I also reviewed the radiology report. Lab Review: Laboratory results were reviewed and interpreted by myself the emergency room physician. No leukocytosis. No anemia. BUN and creatinine are at her baseline at 22 and 1.2. Urinalysis is negative for infection. Liver enzymes are normal. Lipase is normal. I reviewed the patient's medical record. Reexamination: Patient remained stable. No increased work of breathing. No altered mental status. No focal motor deficits. Has continued have abdominal pain and vomiting. NG tube has been placed. Consultation: I spoke with Dr. Anguiano who will consult on the patient. Recommends NG tube placement at this point. Consultation: I spoke with Dr. Henry who agrees to admission of the patient. Assessment and plan: Small bowel obstruction ?NG tube placement, multiple doses of IV Zofran and IV morphine. -I discussed the patient with the hospitalist on-call who is admitting the patient. - Discussed findings and plan with patient. Answered any questions. - All laboratory values were reviewed and interpreted personally by myself, the ER physician - All imaging was reviewed and interpreted personally by myself, the ER physician. - Evaluation and treatment of this problem were appropriate in the emergency setting Lab Data 06/09/24 09:09 06/09/24 09:09 Labs/Radiology: Radiology Impressions Chest/Abdomen X-ray 06/09/24 08:36 Impression: Atherosclerosis. Clinical Data: abdominal pain Impression: 1. Dilated central small bowel loops which may be an acute bowel obstruction. 2. Large amount of fecal material throughout the colon. Abdomen/Pelvis CT 06/09/24 10:26 IMPRESSION: 1. High-grade small bowel obstruction. Focal high-grade stenosis noted in the mid abdomen with dilated small bowel on each side of the stenotic bowel. Consider closed-loop obstruction. 2. No free air at this point. Patient is at risk for perforation due to the extensive small bowel dilatation. No ischemia. 3. Small amount of free fluid in the pelvis. 4. Moderate atherosclerosis aorta and mesenteric arteries. Notified Jody Lara MD at 06/09/2024 11:26 AM. Laboratory Results WBC 6.52 10^3/uL (3.29-11.43) 06/09/24 09:09 RBC 4.45 10^6/uL (3.85-5.65) 06/09/24 09:09 Hgb 13.90 g/dL (11.27-16.99) 06/09/24 09:09 Hct 40.5 % (36-47) 06/09/24 09:09 MCV 91.0 fl (85-98) 06/09/24 09:09 MCH 31.2 pg (27-33) 06/09/24 09:09 MCHC 34.3 g/dL (30-55) 06/09/24 09:09 RDW 11.7 % (12.1-15.1) L 06/09/24 09:09 Plt Count 463 10^3/cmm (157-399) H 06/09/24 09:09 MPV 10.4 fL (7.4-10.4) 06/09/24 09:09 Neut % (Auto) 70.5 % 06/09/24 09:09 Lymph % (Auto) 15.0 % 06/09/24 09:09 Frio % (Auto) 13.5 % 06/09/24 09:09 Eos % (Auto) 0.2 % 06/09/24 09:09 Baso % (Auto) 0.6 % 06/09/24 09:09 Neut # (Auto) 4.60 10^3/uL (1.8-7.7) 06/09/24 09:09 Lymph # (Auto) 1.0 10^3/uL (0.8-4.8) 06/09/24 09:09 Frio # (Auto) 0.9 10^3/uL (0.2-0.9) 06/09/24 09:09 Eos # (Auto) 0.0 10^3/uL (0.0-0.8) 06/09/24 09:09 Baso # (Auto) 0.0 10^3/uL (0.0-0.1) 06/09/24 09:09 Nucleated RBC % (auto) 0 % 06/09/24 09:09 Nucleated RBCs # 0.0 /100WBC 06/09/24 09:09 Sodium 132 mmol/L (136-145) L 06/09/24 09:09 Potassium 3.9 mmol/L (3.5-5.1) 06/09/24 09:09 Chloride 91 mmol/L (98-107) L 06/09/24 09:09 Carbon Dioxide 24 mmol/L (22-29) 06/09/24 09:09 Anion Gap 20.9 (5-19) H 06/09/24 09:09 BUN 22 mg/dL (8-23) 06/09/24 09:09 Creatinine 1.2 mg/dL (0.5-0.9) H 06/09/24 09:09 GFR Calculation Not Reportable 06/09/24 09:09 Glucose 142 mg/dL (65-115) H 06/09/24 09:09 Calculated Osmolality 280 mOsm/kg (285-295) L 06/09/24 09:09 Lactic Acid 1.5 mmol/L (0.5-2.2) 06/09/24 09:09 Calcium 9.5 mg/dL (8.5-10.5) 06/09/24 09:09 Total Bilirubin 0.4 mg/dL (0.15-1.2) 06/09/24 09:09 AST 18 U/L (0-32) 06/09/24 09:09 ALT 8 U/L (0-33) 06/09/24 09:09 Alkaline Phosphatase 102 U/L (35-105) 06/09/24 09:09 C-Reactive Protein 23.2 mg/L (0.0-4.9) H 06/09/24 09:09 Total Protein 7.1 g/dL (6.6-8.7) 06/09/24 09:09 Albumin 4.0 g/dL (3.5-5.2) 06/09/24 09:09 Globulin 3.1 g/dL (1.3-4.6) 06/09/24 09:09 Lipase 26 U/L (13-60) 06/09/24 09:09 Urine Color Yellow (Yellow) 06/09/24 10:15 Urine Appearance Clear (CLEAR) 06/09/24 10:15 Urine pH 6 (5-7) 06/09/24 10:15 Ur Specific [place] 1.015 (1.005-1.030) 06/09/24 10:15 Urine Protein Neg (Negative) 06/09/24 10:15 Urine Glucose (UA) Norm (Normal) 06/09/24 10:15 Urine Ketones Negative (Negative) 06/09/24 10:15 Urine Blood Neg (Negative) 06/09/24 10:15 Urine Nitrate Negative (Negative) 06/09/24 10:15 Urine Bilirubin Neg (Negative) 06/09/24 10:15 Urine Urobilinogen Norm mg/dL (Negative) 06/09/24 10:15 Ur Leukocyte Esterase Negative (Negative) 06/09/24 10:15 Urine RBC None /hpf (0-2) 06/09/24 10:15 Urine WBC 0-4 /hpf (0-5) H 06/09/24 10:15 Ur Squamous Epith Cells 0-4 /hpf (0-5) H 06/09/24 10:15 Ur Transition Epith Cell 5-10 /hpf 06/09/24 10:15 Amorphous Sediment Not Reportable 06/09/24 10:15 Urine Bacteria None /hpf (NONE) 06/09/24 10:15 Hyaline Casts 15-25 /lpf H 06/09/24 10:15 Urine Mucus Trace /hpf 06/09/24 10:15 All radiology interpretation(s) finalized by discharge Discharge Plan Discharge Patient Disposition: Admitted As Inpatient Clinical Impression: Small bowel obstruction Condition: Stable Coding Level of Care Code ED [employer] for Booker Yadav
[2024-06-09] MEDS: ondansetron 2 mg/ML SDV 2 mL 8 MG IVP (11:50)
[2024-06-09] MEDS: morphine 4 mg/mL SDV 1 mL IVP (11:55)
--- NOTE | 2024-06-09 12:22 | XRR_ITS ---
PROCEDURE INFORMATION: Exam: XR Chest Exam date and time: 06/09/2024 12:29 PM Age: 73 years old Clinical indication: Device placement; Ng tube; Additional info: Ng tube placement TECHNIQUE: Imaging protocol: Radiologic exam of the chest. Views: 1 view. COMPARISON: CT abdomen pelvis w con* [id number] 06/09/2024 10:59 AM FINDINGS: Tubes, catheters and devices: Enteric tube tip and side port overlie the stomach. Lungs: No consolidation. Pleural spaces: No sizable pleural effusion or pneumothorax. Heart/Mediastinum: No cardiomegaly. Bones/joints: Unremarkable. Organs: Status post cholecystectomy. XR/XR chest 1V portable [id number] IMPRESSION: Enteric tube tip and side port overlie the stomach.
--- NOTE | 2024-06-09 13:23 | P.HP_ITS ---
Providers/Chief Complaint 2 Primary Care Provider: ZANE Tan Chief Complaint: Abd pain, n,v, no bm 1 wk History of Present Illness Zelda Hernandez is a 73 year old female who presented with chief complaint nausea vomiting abdominal pain which she is endorsing started roughly 48 hours ago, her last bowel movement was a 7 days ago, in the ER she has been diagnosed with high-grade obstruction closed-loop, general surgery consulted. Patient has received IV fluids. I have requested Zosyn. Lactic acid unremarkable Patient is stating that she never had screening colonoscopy, at the time of evaluation she has an NG tube to low intermittent suction draining bile No active abdominal pain, family at the bedside She is hemodynamically stable Review of Systems 2 Const: Denies: chills Eyes: Denies: change in vision ENMT: Denies: throat pain Card: Denies: chest pain Resp: Denies: dyspnea GI: Reports: nausea Medications/Allergies Home Medications Medication Instructions Recorded Confirmed Last Taken Type triamcinolone acetonide 55 mcg 1 spray intranasal DAILY PRN 04/05/21 06/09/24 Unknown History nasal spray aerosol (Nasacort) allergies alprazolam 0.5 mg tablet 0.5 mg PO DAILY 03/07/22 06/09/24 06/08/24 History amlodipine 5 mg tablet 5 mg PO DAILY 03/07/22 06/09/24 06/09/24 History baclofen 10 mg tablet 10 mg PO BID PRN Pain 03/07/22 06/09/24 Unknown History cetirizine 10 mg capsule (Zyrtec) 10 mg PO DAILY PRN allergies 03/07/22 06/09/24 03/07/22 History diltiazem HCl 360 mg capsule,24 360 mg PO DAILY 03/07/22 06/09/24 06/09/24 History hr,extended release hydrocodone 5 mg-acetaminophen 325 1 tab PO BID PRN Pain 03/07/22 06/09/24 Unknown History mg tablet simvastatin 40 mg tablet 40 mg PO DAILY 03/07/22 06/09/24 06/08/24 History trandolapril 4 mg tablet 4 mg PO DAILY 03/07/22 06/09/24 03/07/22 History alendronate 70 mg tablet See Rx Instructions .Route .COMPLEX 06/09/24 06/09/24 06/06/24 History ibuprofen 800 mg tablet 800 mg PO TID PRN Pain 06/09/24 06/09/24 Unknown History nitrofurantoin 100 mg PO BID 06/09/24 06/09/24 06/08/24 History monohydrate/macrocrystals 100 mg capsule paroxetine HCl 10 mg tablet 10 mg PO DAILY 06/09/24 06/09/24 06/08/24 History Allergies Allergy/AdvReac Type Severity Reaction Status Date / Time gabapentin Allergy Unknown Unknown Verified 02/18/24 10:41 PFSH Acute 2 PFSH: Medical History Palpitations Hypertension Diabetes Family History Father Hypertension Heart attack Social History Smoking and tobacco/nicotine status: never used tobacco/nicotine Alcohol intake: never Substance/Drug Use: never Vitals/I&O/Wt Last Vital Signs Temp 98.4 F 06/09/24 08:43 Pulse 76 06/09/24 10:07 Resp 18 06/09/24 08:43 BP 143/72 06/09/24 10:07 Pulse Ox 96 06/09/24 10:07 O2 Del Method Room Air 06/09/24 10:07 Weight last 48 hrs Weight 56.245 kg Physical Exam 2 Narrative: Awake and alert Euvolemic GCS 15 No abdominal pain Abdomen soft on palpation No guarding rigidity NG tube placed with low intermittent suction draining bile Family is at the bedside Hemodynamically stable on room air Data 06/09/24 09:09 06/09/24 09:09 Micro: Microbiology 06/09/24 09:48 Blood Culture - Preliminary Blood SPECIMEN COLLECTED 06/09/24 09:09 Blood Culture - Preliminary Blood SPECIMEN COLLECTED A&P Assessment and plan (1) Hypertension: (2) Small bowel obstruction: Plan High-grade bowel obstruction Closed-loop General Surgery consulted NG to low intermittent suction Appreciate general surgery recommendations I will repeat lactic acid tomorrow Start Zosyn Start IV fluids DVT prophylaxis SCDs in case patient goes for exploratory department by tomorrow Full code Hold p.o. medications Attestations 2 Medical Necessity Statement*: Anticipating more than 2 midnights Diagnoses Hypertension I10 Small bowel obstruction K56.609
--- NOTE | 2024-06-09 13:30 | P.CONIM_ITS ---
Providers/Reason For Consult 2 Consulting Physician/Specialty*: General surgery Reason for Consult*: Small bowel obstruction Primary Care Provider: ZANE Tan History of Present Illness History of Present Illness Zelda Hernandez is a 73 year old female who presents to the hospital with possible small bowel obstruction. Patient has been having abdominal distention pain nausea and vomiting over the last 48 hours, her last bowel movement was about 1 week ago. Denies fever or chills. Patient has history of previous cholecystectomy, other than that no other major abdominal surgeries. Review of Systems 2 General: Reports: 10 or more systems reviewed and unremarkable except in HPI and below Medications/Allergies Home Medications Medication Instructions Recorded Confirmed Last Taken Type triamcinolone acetonide 55 mcg 1 spray intranasal DAILY PRN 04/05/21 06/09/24 Unknown History nasal spray aerosol (Nasacort) allergies alprazolam 0.5 mg tablet 0.5 mg PO DAILY 03/07/22 06/09/24 06/08/24 History amlodipine 5 mg tablet 5 mg PO DAILY 03/07/22 06/09/24 06/09/24 History baclofen 10 mg tablet 10 mg PO BID PRN Pain 03/07/22 06/09/24 Unknown History cetirizine 10 mg capsule (Zyrtec) 10 mg PO DAILY PRN allergies 03/07/22 06/09/24 03/07/22 History diltiazem HCl 360 mg capsule,24 360 mg PO DAILY 03/07/22 06/09/24 06/09/24 History hr,extended release hydrocodone 5 mg-acetaminophen 325 1 tab PO BID PRN Pain 03/07/22 06/09/24 Unknown History mg tablet simvastatin 40 mg tablet 40 mg PO DAILY 03/07/22 06/09/24 06/08/24 History trandolapril 4 mg tablet 4 mg PO DAILY 03/07/22 06/09/24 03/07/22 History alendronate 70 mg tablet See Rx Instructions .Route .COMPLEX 06/09/24 06/09/24 06/06/24 History ibuprofen 800 mg tablet 800 mg PO TID PRN Pain 06/09/24 06/09/24 Unknown History nitrofurantoin 100 mg PO BID 06/09/24 06/09/24 06/08/24 History monohydrate/macrocrystals 100 mg capsule paroxetine HCl 10 mg tablet 10 mg PO DAILY 06/09/24 06/09/24 06/08/24 History Allergies Allergy/AdvReac Type Severity Reaction Status Date / Time gabapentin Allergy Unknown Unknown Verified 02/18/24 10:41 PFSH Acute 2 PFSH: Medical History Palpitations Hypertension Diabetes Family History Father Hypertension Heart attack Social History Smoking and tobacco/nicotine status: never used tobacco/nicotine Alcohol intake: never Substance/Drug Use: never Vitals/I&O/Wt Last Vital Signs Temp 98.4 F 06/09/24 08:43 Pulse 76 06/09/24 10:07 Resp 18 06/09/24 08:43 BP 143/72 06/09/24 10:07 Pulse Ox 96 06/09/24 10:07 O2 Del Method Room Air 06/09/24 10:07 Weight last 48 hrs Weight 124 lb Physical Exam 2 Narrative: General : Patient is well developed , no acute distress, oriented x3 Head : Normal cephalic, a-traumatic. Nose : Mucous membranes are without erythema. Lungs : Equal chest rise bilaterally, no use of accessory muscles, trachea is midline. CV : Rate and rhythm are normal. Abdomen : Abdomen is soft, minimally distended, minimally tender in the epigastrium, no peritoneal signs, no guarding Extremities : No edema. Upper extremities are normal bilaterally. Back : non-tender to palpation, no CVA tenderness. Data 06/09/24 09:09 06/09/24 09:09 Micro: Microbiology 06/09/24 09:48 Blood Culture - Preliminary Blood SPECIMEN COLLECTED 06/09/24 09:09 Blood Culture - Preliminary Blood SPECIMEN COLLECTED A&P Assessment and plan (1) Small bowel obstruction: Plan 73-year-old female who presents to the hospital with possible small bowel obstruction, CT scan done in the ER in the emergency department show evidence of multiple dilated loops of bowel with a possible area of stenosis in the middle abdomen, there is no evidence of bowel ischemia or secondary signs concerning for the possibility of perforation, while the CT scan remains a consideration for the possibility of a closed-loop obstruction, there is dilated bowel proximal and distal to the area of interest which makes this diagnosis less likely. Patient is clinically stable, no evidence of elevated white count no evidence of peritonitis no other clinical evidence of bowel perforation. NG tube was placed in the ED and produced about 2 L of bilious fluid. In the setting I have had an extensive discussion with the patient, I think it will be appropriate to attempt nonoperative management as this is likely caused by adhesions, we will continue NG tube decompression for the next 24 to 48 hours and after that we will proceed with a Gastrografin trial, if Gastrografin trial is negative or if there is any changes in clinical status next step will be to proceed to the operating room for a laparotomy and possible bowel resection. Have discussed with the patient the possibility of surgery and she has explained that she will like to avoid surgical intervention as much as possible. Will continue to monitor the patient and do serial abdominal exams over the next 24 to 48 hours. Will continue NG tube decompression, hydration and additional management per hospitalist team. -N.p.o. -NG to low intermittent suction -Will plan on Gastrografin trial either tomorrow or Thursday depending on NG output -NG tube can be clamped for the patient to walk once she is in the floor -All other management per primary Coding Level of Care Code 70844 Diagnoses Small bowel obstruction K56.609
[2024-06-09] MEDS: piperacillin-tazobactam 3.375 GM in sodium chloride 0.9% (plus) 50 ML IV ×2 (14:30→21:57)
[2024-06-09] MEDS: dextrose 5%-sod chloride 0.9% 1,000 ML 75 ML IV (15:55)
[2024-06-09] MEDS: pantoprazole 40 mg SDV IVP (17:16)
[2024-06-09] MEDS: ALPRAZolam 0.5 mg Tablet PO (21:02)
[2024-06-10 03:00] VITALS: BP 156/77; PULSE 94; RESP 14; TEMP 36.8; O2SAT 93
[2024-06-10] MEDS: dextrose 5%-sod chloride 0.9% 1,000 ML 75 ML IV ×2 (03:58→19:01)
[2024-06-10] MEDS: acetaminophen 500 mg Tablet PO ×2 (03:59→20:07)
[2024-06-10 05:27] LABS: Basophils # 0.1 10^3/uL (0.0-0.1); Basophils % 1.1 %; Eosinophils # 0.1 10^3/uL (0.0-0.8); Eosinophils % 1.8 %; Hematocrit 38.7 % (36-47); Lymphocytes # 1.2 10^3/uL (0.8-4.8); Lymphocytes % 21.3 %; Mean Corpuscular HGB Conc 33.1 g/dL (30-55); Mean Corpuscular Hemoglobin 31.2 pg (27-33); Mean Corpuscular Volume 94.4 fl (85-98); Mean Platelet Volume 10.2 fL (7.4-10.4); Monocytes # 1.1 10^3/uL (0.2-0.9); Monocytes % 18.7 %; Neutrophils # 3.22 10^3/uL (1.8-7.7); Neutrophils % 57.1 %; Nucleated Red Blood Cells % 0 %; Platelet Count 389 10^3/cmm (157-399); White Blood Count 5.63 10^3/uL (3.29-11.43)
[2024-06-10] MEDS: piperacillin-tazobactam 3.375 GM in sodium chloride 0.9% (plus) 50 ML IV (05:52)
[2024-06-10 06:01] LABS: Anion Gap 15.7 (5-19); Blood Urea Nitrogen 19 mg/dL (8-23); C Reactive Protein 41.5 mg/L (0.0-4.9); Calcium 8.5 mg/dL (8.5-10.5); Carbon Dioxide 27 mmol/L (22-29); Chloride 98 mmol/L (98-107); Creatinine Clr Calc Pharmacy 31.9546; Glucose 143 mg/dL (65-115); Magnesium 2.1 mg/dL (1.7-2.3); Osmolality Calculated 289 mOsm/kg (285-295); Potassium 3.7 mmol/L (3.5-5.1); Sodium 137 mmol/L (136-145)
--- NOTE | 2024-06-10 06:22 | XR_ITS ---
WS: [id number] KUB, AP view, 06/10/2024 Clinical Data: follow up SBO Comparison: Acute abdomen series, 06/09/2024 Findings: The central small bowel loops remain dilated. There is a large amount of fecal material throughout th e colon. No abnormal intra-abdominal masses or calcifications are seen. The nasogastric tube probably ends in the body of the stomach. There are cholecystectomy clips in the right upper quadrant. XR/XR abdomen 1V* [id number] Impression: No change in central small bowel obstruction.
[2024-06-10] MEDS: HYDROcodone-acetaminophen 5-325 mg Tablet 1 TAB PO ×2 (06:37→14:42)
[2024-06-10 07:00] VITALS: BP 131/73; PULSE 83; RESP 17; TEMP 36.8; O2SAT 95
[2024-06-10 07:44] VITALS: PULSE 89; RESP 18; O2SAT 94
[2024-06-10] MEDS: pantoprazole 40 mg SDV IVP ×2 (08:35→17:02)
--- NOTE | 2024-06-10 09:02 | P.PN_ITS ---
Subjective 2 Subjective: Patient not endorsing any abdominal pain Patient was examined in presence of general surgery today There is plan to continue NG to low intermittent suction today, Gastrografin study by tomorrow Continue IV fluids and dc Zosyn for now NG tube had 800 mL of bile overnight Vitals/I&O/Wt Last Vital Signs Temp 98.3 F 06/10/24 03:00 Pulse 89 06/10/24 07:44 Resp 18 06/10/24 07:44 BP 156/77 06/10/24 03:00 Pulse Ox 94 06/10/24 07:44 O2 Del Method Room Air 06/10/24 07:44 06/09/24 06/10/24 06/10/24 22:59 06:59 14:59 Intake Total 1050 / 1050 1050 / 2100 Output Total 1000 / 1000 350 / 1350 Balance 50 / 50 700 / 750 Weight last 48 hrs Weight 46.266 kg Weight 56.245 kg Weight 56.245 kg Physical Exam 2 Narrative: Patient resting comfortably Positive bowel sounds Hyperactive Nontender abdomen No signs of peritonitis GCS 15 nonfocal neuroexam NG to low intermittent suction Urinary Catheter Management: [place]: Cath Placed During This Visit: yes Reason for Continuing Indwelling Catheter: Other Urinary Catheter Date of Insertion: 06/09/24 Urinary Catheter Time of Insertion: 14:24 Data 06/10/24 05:08 06/10/24 05:08 Micro: Microbiology 06/09/24 09:48 Blood Culture - Preliminary Blood SPECIMEN COLLECTED 06/09/24 09:09 Blood Culture - Preliminary Blood SPECIMEN COLLECTED A&P Assessment and plan (1) Hypertension: (2) Small bowel obstruction: (3) Lumbar disc disease with radiculopathy: Plan Closed-loop bowel obstruction/SBO Abdomen soft Clinical exam benign Positive hyperactive bowel sounds NG tube draining 800 mL of bile today Conservative management to be continued as per general surgery Plan for Gastrografin GI study tomorrow Continue IV fluids Will request PPN, consult dietitian Discontinue Zosyn DVT prophylaxis: SCDs N.p.o. For hypertension would use IV hydralazine on as-needed basis if blood pressure greater than 180/100 mmHg Attestations 2 Medical Necessity Statement*: Continue medical management Diagnoses Hypertension I10 Small bowel obstruction K56.609 Lumbar disc disease with radiculopathy M51.16
--- NOTE | 2024-06-10 09:08 | P.PN_ITS ---
Subjective 2 Subjective: This is a 73-year-old female who presents to the hospital with a possible small bowel obstruction. Conservative management was initiated with NG tube decompression. Overnight patient has been doing okay does not complain of abdominal pain but abdomen remains slightly distended. NG tube output has remained high with almost a liter over the last 12 to 15 hours. Denies passing gas or having bowel movements. Has not ambulated. Vitals/I&O/Wt Last Vital Signs Temp 98.3 F 06/10/24 03:00 Pulse 89 06/10/24 07:44 Resp 18 06/10/24 07:44 BP 156/77 06/10/24 03:00 Pulse Ox 94 06/10/24 07:44 O2 Del Method Room Air 06/10/24 07:44 06/09/24 06/10/24 06/10/24 22:59 06:59 14:59 Intake Total 1050 / 1050 1050 / 2100 Output Total 1000 / 1000 350 / 1350 Balance 50 / 50 700 / 750 Weight last 48 hrs Weight 102 lb Weight 124 lb Weight 124 lb Physical Exam 2 GI: OTHER: Abdominal examination remains benign, the abdomen is soft is nontender, there is positive bowel sounds, NG tube in place with bilious effluent Urinary Catheter Management: [place]: Cath Placed During This Visit: yes Reason for Continuing Indwelling Catheter: Other Urinary Catheter Date of Insertion: 06/09/24 Urinary Catheter Time of Insertion: 14:24 Data 06/10/24 05:08 06/10/24 05:08 Micro: Microbiology 06/09/24 09:48 Blood Culture - Preliminary Blood SPECIMEN COLLECTED 06/09/24 09:09 Blood Culture - Preliminary Blood SPECIMEN COLLECTED A&P Assessment and plan (1) Small bowel obstruction: Plan This a 73-year-old female with a small bowel obstruction currently undergoing conservative management. Laboratory workup has remained stable normal white count, improved lactate level, slight uptrend of the CRP. Vital signs have remained stable no fever no tachycardia no hypotension, I obtained an additional x-ray of the abdomen this morning that showed persistent dilation of bowel loops in the central abdomen. While NG tube output is still elevated I feel inclined to proceed with Gastrografin trial today instead of waiting another 24 hours of decompression, this will allow me to identify the need for proceeding forward with surgical intervention earlier and also with the hopes of having a therapeutic effect and resolving her SBO. We will administer Gastrografin today around noon, will obtain an x-ray 4 hours later and another 1 in the morning tomorrow. If by the morning there is no progression of the contrast as the area of obstruction we may have to consider surgical intervention. Patient was informed about this findings, she is agreeable with the plan. I have encouraged the patient to ambulate. NG to low intermitten suction Will proceed with gastrografin trial this afternoon pain control ambulate as tolerated. Attestations 2 Medical Necessity Statement*: Per medical team Coding Level of Care Code Acute Code for Chg Fwd Diagnoses Small bowel obstruction K56.609
[2024-06-10] MEDS: enoxaparin 40 mg/0.4 mL Syringe SUBCUT (10:49)
[2024-06-10 11:00] VITALS: BP 140/81; PULSE 87; RESP 14; TEMP 37.2; O2SAT 95
--- NOTE | 2024-06-10 11:17 | PC.NURSE ---
Per [facility] report NOC shift had 450 ml out NG.
--- NOTE | 2024-06-10 12:15 | PM.MISC ---
Miscellaneous Note Purpose of Documentation: Patient care update Note: Patient clinical status has not changed, remains stable, abdomen is soft and nontender at this time. Proceed with administration of Gastrografin will obtain x-rays at 6 PM and tomorrow morning to decide on further treatment.
--- NOTE | 2024-06-10 14:18 | FLR_ITS ---
PROCEDURE INFORMATION: Exam: FL Small Intestine Exam date and time: 06/10/2024 1:05 PM Age: 73 years old Clinical indication: Condition or disease; Condition/disease: Small bowel obstruction TECHNIQUE: Imaging protocol: Radiologic examination, small intestine, includes multiple serial images. Fluoroscopy is included if performed. Total images: 278 COMPARISON: CR XR abdomen 1V* [id number] 06/10/2024 8:57 AM RADIATION DOSE METRICS: Fluoroscopy time (seconds): Not provided Number of fluoro spot images: 1 minute, 15 minute, and 30 minute abdominal radiographs Reference air kerma (SATISH): Not provided. FINDINGS: Other findings: Enteric tube is seen with the tip in the body of the stomach. Surgical clips are present in the right upper quadrant which are suggestive of prior cholecystectomy. Contrast seen within stomach and proximal small bowel. Dilated proximal small bowel loops with large amount of fecal matter seen within the colon. Findings may represent an early small bowel obstruction versus small bowel obstruction secondary to fecal impaction. Spinal degenerative changes are evident. FL/[place] [id number] IMPRESSION: 1. Enteric tube is seen with the tip in the body of the stomach. 2. Contrast seen within stomach and proximal small bowel. Dilated proximal small bowel loops with large amount of fecal matter seen within the colon. Findings may represent an early small bowel obstruction versus small bowel obstruction secondary to fecal impaction. Radiographic surveillance is recommended to document resolution.
[2024-06-10 15:00] VITALS: BP 131/91; PULSE 99; RESP 16; TEMP 36.6; O2SAT 94
--- NOTE | 2024-06-10 16:21 | PC.NURSE ---
Notified Dr. Henry that PPN rec'd, clarified to continue D5NS at 75 ml/hr and PPN 42 ml/ hr.
[2024-06-10] MEDS: AA-Dex 4.25%-5% w/Lytes 1,000 ML with multivitamin inj 10 ML 42 ML IV (16:24)
--- NOTE | 2024-06-10 17:31 | XRR_ITS ---
PROCEDURE INFORMATION: Exam: XR Abdomen Exam date and time: 06/10/2024 5:48 PM Age: 73 years old Clinical indication: Screening exam; Other: Small bowel study follow-up; Additional info: 6 hours f/u after gastrografin TECHNIQUE: Imaging protocol: Radiologic exam of the abdomen. Views: Frontal supine view of the abdomen. 1 View. COMPARISON: CR XR abdomen 1V* [id number] 06/10/2024 8:57 AM FINDINGS: Tubes, catheters and devices: Enteric tube terminates over the expected area of the stomach. Gastrointestinal tract: Persistent gaseous distension of bowel concerning for obstruction. Oral contrast is present within the stomach and within the proximal small bowel, which is dilated. Bones/joints: No acute osseous findings. XR/XR abdomen 1V* [id number] IMPRESSION: 1. Persistent gaseous distension of bowel concerning for obstruction. 2. Oral contrast is present within the stomach and within the proximal small bowel, which is dilated.
--- NOTE | 2024-06-10 18:49 | PM.MISC ---
Miscellaneous Note Purpose of Documentation: Update on patient care Note: Gastrografin trial was attempted today, there was no significant advancement of contrast from the stomach 6 hours after administration, patient becomes distended with nausea no vomit. This findings are consistent with the possibility of a high-grade obstruction, I think at this point the safest approach will be to proceed with surgery to attempt to relieve the obstruction. With this in mind and proceeded with decompression of the stoma, 1.3 L of bilious fluid was evacuated and the NG tube was hooked to low intermittent suction. Abdominal exam remains benign,vital signs remained stable. We will plan for exploratory laparotomy, possible lysis of additions, possible bowel resection, possible ostomy creation. I have discussed all risk and benefits of the procedure with the patient and family members, I have explained at least a high risk procedure with a high probability of morbidity and even mortality, I have explained that there is a risk for hernia, injury to surrounding structures, bleeding, intra-abdominal abscess, anastomotic leakage, sepsis, , need for additional procedures, bowel perforation, need for extensive bowel resection resulting in short-bowel, failure to resolve obstruction. Patient and family member show understanding and agree with intervention.
[2024-06-10 20:00] VITALS: BP 153/96; PULSE 85; RESP 18; TEMP 36.8; O2SAT 96
[2024-06-10] MEDS: ALPRAZolam 0.5 mg Tablet PO (20:07)
[2024-06-11] VITALS (22 sets, daily range): BP systolic 113–175; BP diastolic 73–98; PULSE 76–98; RESP 9–25; TEMP 36.7–37.4; O2SAT 90–100
[2024-06-11] MEDS: HYDROcodone-acetaminophen 5-325 mg Tablet 1 TAB PO (00:07)
[2024-06-11] MEDS: morphine 4 mg/mL SDV 1 mL 2 MG IVP ×2 (01:42→05:42)
[2024-06-11] MEDS: LORazepam 2 mg/mL INJ 1 mL 0.5 MG IVP (04:26)
[2024-06-11 05:25] LABS: Basophils # 0.1 10^3/uL (0.0-0.1); Basophils % 0.9 %; Eosinophils # 0.1 10^3/uL (0.0-0.8); Eosinophils % 1.9 %; Hematocrit 38.9 % (36-47); Lymphocytes # 1.5 10^3/uL (0.8-4.8); Mean Corpuscular HGB Conc 32.9 g/dL (30-55); Mean Corpuscular Hemoglobin 30.8 pg (27-33); Mean Corpuscular Volume 93.7 fl (85-98); Mean Platelet Volume 10.2 fL (7.4-10.4); Monocytes # 1.1 10^3/uL (0.2-0.9); Monocytes % 16.5 %; Neutrophils # 3.64 10^3/uL (1.8-7.7); Neutrophils % 57.4 %; Nucleated Red Blood Cells % 0 %; Platelet Count 384 10^3/cmm (157-399); Red Blood Count 4.15 10^6/uL (3.85-5.65); Red Cell Distribution Width 11.8 % (12.1-15.1); White Blood Count 6.35 10^3/uL (3.29-11.43)
[2024-06-11 05:45] LABS: Lactate (Lactic Acid level) 1.1 mmol/L (0.5-2.2)
[2024-06-11 05:49] LABS: Anion Gap 14.4 (5-19); Blood Urea Nitrogen 20 mg/dL (8-23); C Reactive Protein 61.7 mg/L (0.0-4.9); Calcium 8.6 mg/dL (8.5-10.5); Carbon Dioxide 26 mmol/L (22-29); Chloride 102 mmol/L (98-107); Glucose 159 mg/dL (65-115); Osmolality Calculated 294 mOsm/kg (285-295); Potassium 3.4 mmol/L (3.5-5.1); Sodium 139 mmol/L (136-145)
[2024-06-11] MEDS: piperacillin-tazobactam 3.375 GM in sodium chloride 0.9% (plus) 50 ML IV ×2 (06:55→16:53)
--- NOTE | 2024-06-11 07:17 | W.PM.OPSFHP ---
Same Day Surgery H&P Indication for Procedure/HPI DATE OF PROCEDURE: June 11, 2024 CHIEF COMPLAINT/INDICATIONFOR SURGICAL PROCEDURE: Small bowel obstruction PREOP DIAGNOSIS: Small bowel obstruction PLANNED PROCEDURE: Operation Date: 06/11/24 11:15 Proposed Procedures p Exploratory Laparotomy(Not Applicable) - Oliver Wilder MD Medications/Allergies* Home Medications Medication Instructions Recorded Confirmed Type triamcinolone acetonide 55 mcg 1 spray intranasal DAILY PRN 04/05/21 06/09/24 History nasal spray aerosol (Nasacort) allergies alprazolam 0.5 mg tablet 0.5 mg PO DAILY 03/07/22 06/09/24 History amlodipine 5 mg tablet 5 mg PO DAILY 03/07/22 06/09/24 History baclofen 10 mg tablet 10 mg PO BID PRN Pain 03/07/22 06/09/24 History cetirizine 10 mg capsule (Zyrtec) 10 mg PO DAILY PRN allergies 03/07/22 06/09/24 History diltiazem HCl 360 mg capsule,24 360 mg PO DAILY 03/07/22 06/09/24 History hr,extended release hydrocodone 5 mg-acetaminophen 325 1 tab PO BID PRN Pain 03/07/22 06/09/24 History mg tablet simvastatin 40 mg tablet 40 mg PO DAILY 03/07/22 06/09/24 History trandolapril 4 mg tablet 4 mg PO DAILY 03/07/22 06/09/24 History alendronate 70 mg tablet See Rx Instructions .Route .COMPLEX 06/09/24 06/09/24 History ibuprofen 800 mg tablet 800 mg PO TID PRN Pain 06/09/24 06/09/24 History nitrofurantoin 100 mg PO BID 06/09/24 06/09/24 History monohydrate/macrocrystals 100 mg capsule paroxetine HCl 10 mg tablet 10 mg PO DAILY 06/09/24 06/09/24 History Allergies/Adverse Reactions Allergy/AdvReac Type Severity Reaction Status Date / Time gabapentin Allergy Unknown Unknown Verified 02/18/24 10:41 Current Medications: Generic Name Dose Route Start Last Admin Trade Name Freq PRN Reason Stop Dose Admin Acetaminophen 500 mg 06/09/24 14:51 06/10/24 20:07 Acetaminophen 500 Mg Tablet PO 500 mg Q4H PRN Administration fever Alprazolam 0.5 mg 06/09/24 21:00 06/10/24 20:07 Alprazolam 0.5 Mg Tablet PO 0.5 mg BEDTIME MILAGRO Administration Dextrose/Sodium Chloride 1,000 mls @ 75 mls/hr 06/09/24 14:51 06/10/24 19:01 Dextrose 5%-Sod Chloride 0.9% IV 75 mls/hr .[id number] MIL[place]RO Administration Multivitamins 10 ml/ Amino 1,010 mls @ 42 mls/hr 06/10/24 16:30 06/10/24 16:24 Acids/Electrolytes/Dextrose IV 42 mls/hr .Q24H MIL[place]RO Administration Piperacillin Sod/Tazobactam 50 mls @ 12.5 mls/hr 06/11/24 06:15 06/11/24 06:55 Sod 3.375 gm/ Sodium Chloride IV 12.5 mls/hr Q8H MILAGRO Administration Protocol Morphine Sulfate 2 mg 06/11/24 01:23 06/11/24 05:42 Morphine 4 Mg/Ml Sdv 1 Ml IVP 2 mg Q4H PRN Administration SEVERE PAIN Pantoprazole Sodium 40 mg 06/09/24 18:00 06/10/24 17:02 Pantoprazole 40 Mg Sdv IVP 40 mg BID MIL[place]RO Administration Pertinent History/Comorbid Conditions* Medical History (Updated 06/09/24 @ 11:51 by Jody Lara MD) Palpitations Hypertension Diabetes Family History (Updated 05/06/22 @ 13:06 by Sia Kenny RN) Heart attack Father Hypertension Father Social History Smoking and tobacco/nicotine status: never used tobacco/nicotine Alcohol intake: never Substance/Drug Use: never Pertinent Exam Findings alert, oriented x 3, clear to auscultation bilaterally and regular rate & rhythm Recommendations Surgery/Procedure today Coding Level of Care Code Acute Code for Chg Fwd
--- NOTE | 2024-06-11 07:36 | P.ANESASSM_ITS ---
Pre-Anesthetic Assessment Height/Weight: Height 1.52 m Weight 46.833 kg Temp Pulse Resp BP Pulse Ox O2 Del Method 99.3 F 94 20 H 153/82 97 Room Air 06/11/24 07:18 06/11/24 07:18 06/11/24 07:18 06/11/24 07:18 06/11/24 07:18 06/11/24 07:18 Preop Diagnosis: Small bowel obstruction Operation Date: 06/11/24 11:15 Proposed Procedures p Exploratory Laparotomy(Not Applicable) - Oliver Wilder MD Familial anesthetic complications: None Was Beta Dillon taken within 24 hours: N/A Was Clonidine taken within 24 hours: N/A Last intake: Intake Last Liquid Date 06/10/24 Last Liquid Time 23:55 Social No alcohol and No tobacco Exam alert, oriented x 3, clear to auscultation bilaterally and regular rate & rhythm Airway Submandibular: within normal limits Cervical ROM: within normal limits Mallampati: Class II Dentition: false (Some teeth on the bottom that are getting ready to come out per patient) History/ROS No significant history except as noted and No significant complaints Pulmonary Seasonal allergies CV/HEM Arrythmia, Hypertension and Murmur SVT Urinary Tract Infection Hepatic None reported GI Gastroesophageal Reflux Disease and Hiatal Hernia SBO Metabolic Hyperlipidemia Musc/skel Lower Back Pain, Osteoarthritis/DJD and Weakness Neuropsych Anxiety, Headache and Neuropathy Anesthetic Plan ASA status: 3 Anesthesia: Anesthesia Evaluation and General Risk of > 500 ml blood loss (7ml/kg in children): Yes, adequate IV access and fluids planned Medications/Allergies Home Medications Medication Instructions Recorded Confirmed Last Taken Type triamcinolone acetonide 55 mcg 1 spray intranasal DAILY PRN 04/05/21 06/09/24 Unknown History nasal spray aerosol (Nasacort) allergies alprazolam 0.5 mg tablet 0.5 mg PO DAILY 03/07/22 06/09/24 06/08/24 History amlodipine 5 mg tablet 5 mg PO DAILY 03/07/22 06/09/24 06/09/24 History baclofen 10 mg tablet 10 mg PO BID PRN Pain 03/07/22 06/09/24 Unknown History cetirizine 10 mg capsule (Zyrtec) 10 mg PO DAILY PRN allergies 03/07/22 06/09/24 03/07/22 History diltiazem HCl 360 mg capsule,24 360 mg PO DAILY 03/07/22 06/09/24 06/09/24 History hr,extended release hydrocodone 5 mg-acetaminophen 325 1 tab PO BID PRN Pain 03/07/22 06/09/24 Unknown History mg tablet simvastatin 40 mg tablet 40 mg PO DAILY 03/07/22 06/09/24 06/08/24 History trandolapril 4 mg tablet 4 mg PO DAILY 03/07/22 06/09/24 03/07/22 History alendronate 70 mg tablet See Rx Instructions .Route .COMPLEX 06/09/24 06/09/24 06/06/24 History ibuprofen 800 mg tablet 800 mg PO TID PRN Pain 06/09/24 06/09/24 Unknown History nitrofurantoin 100 mg PO BID 06/09/24 06/09/24 06/08/24 History monohydrate/macrocrystals 100 mg capsule paroxetine HCl 10 mg tablet 10 mg PO DAILY 06/09/24 06/09/24 06/08/24 History Allergies Allergy/AdvReac Type Severity Reaction Status Date / Time gabapentin Allergy Unknown Unknown Verified 02/18/24 10:41 Current Medications Generic Name Dose Route Start Last Admin Trade Name Freq PRN Reason Stop Dose Admin Acetaminophen 500 mg 06/09/24 14:51 06/10/24 20:07 Acetaminophen 500 Mg Tablet PO 500 mg Q4H PRN Administration fever Alprazolam 0.5 mg 06/09/24 21:00 06/10/24 20:07 Alprazolam 0.5 Mg Tablet PO 0.5 mg BEDTIME MILAGRO Administration Dextrose/Sodium Chloride 1,000 mls @ 75 mls/hr 06/09/24 14:51 06/10/24 19:01 Dextrose 5%-Sod Chloride 0.9% IV 75 mls/hr .[id number] MILAGRO Administration Multivitamins 10 ml/ Amino 1,010 mls @ 42 mls/hr 06/10/24 16:30 06/10/24 16:24 Acids/Electrolytes/Dextrose IV 42 mls/hr .Q24H MIL[place]RO Administration Piperacillin Sod/Tazobactam 50 mls @ 12.5 mls/hr 06/11/24 06:15 06/11/24 06:55 Sod 3.375 gm/ Sodium Chloride IV 12.5 mls/hr Q8H MILAGRO Administration Protocol Morphine Sulfate 2 mg 06/11/24 01:23 06/11/24 05:42 Morphine 4 Mg/Ml Sdv 1 Ml IVP 2 mg Q4H PRN Administration SEVERE PAIN Pantoprazole Sodium 40 mg 06/09/24 18:00 06/10/24 17:02 Pantoprazole 40 Mg Sdv IVP 40 mg BID MILAGRO Administration PFSH Anesthesia Medical History Palpitations Hypertension Diabetes Family History Father Hypertension Heart attack Social History Smoking and tobacco/nicotine status: never used tobacco/nicotine Alcohol intake: never Substance/Drug Use: never Data Anesthesia 06/11/24 05:10 06/11/24 05:10 Short CBC 06/09/24 06/10/24 06/11/24 Range/Units 09:09 05:08 05:10 WBC 6.52 5.63 6.35 (3.29-11.43) 10^3/uL Hgb 13.90 12.80 12.80 (11.27-16.99) g/dL Hct 40.5 38.7 38.9 (36-47) % MCV 91.0 94.4 93.7 (85-98) fl Plt Count 463 H 389 384 (157-399) 10^3/cmm Neut % (Auto) 70.5 57.1 57.4 % Neut # (Auto) 4.60 3.22 3.64 (1.8-7.7) 10^3/uL BMP 06/09/24 06/10/24 06/11/24 09:09 05:08 05:10 Sodium 132 L 137 139 Potassium 3.9 3.7 3.4 L Chloride 91 L 98 102 Carbon Dioxide 24 27 26 BUN 22 19 20 Creatinine 1.2 H 1.1 H 0.9 Glucose 142 H 143 H 159 H Calcium 9.5 8.5 8.6 Liver Function 06/09/24 Range/Units 09:09 Total Bilirubin 0.4 (0.15-1.2) mg/dL AST 18 (0-32) U/L ALT 8 (0-33) U/L Alkaline Phosphatase 102 (35-105) U/L Albumin 4.0 (3.5-5.2) g/dL Urine 06/09/24 Range/Units 10:15 Urine Color Yellow (Yellow) Urine Appearance Clear (CLEAR) Urine pH 6 (5-7) Ur Specific [place] 1.015 (1.005-1.030) Urine Protein Neg (Negative) Urine Glucose (UA) Norm (Normal) Urine Ketones Negative (Negative) Urine Nitrate Negative (Negative) Urine Bilirubin Neg (Negative) Ur Leukocyte Esterase Negative (Negative) Urine RBC None (0-2) /hpf Urine WBC 0-4 H (0-5) /hpf Coags 06/09/24 06/10/24 06/11/24 09:09 05:08 05:10 C-Reactive Protein 23.2 H 41.5 H 61.7 H Microbiology 06/09/24 09:48 Blood Culture - Preliminary Blood NEGATIVE TO DATE 06/09/24 09:09 Blood Culture - Preliminary Blood NEGATIVE TO DATE Cardiac Studies: 2 Holter Monitor 03/18/22
[2024-06-11] MEDS: sodium chloride 0.9% 1,000 ML 30 ML IV (09:27)
--- NOTE | 2024-06-11 09:35 | P.PN_ITS ---
Subjective 2 Subjective: Status post exploratory laparotomy Failed Gastrografin GI series study yesterday Vitals/I&O/Wt Last Vital Signs Temp 99.3 F 06/11/24 07:18 Pulse 94 06/11/24 07:18 Resp 20 H 06/11/24 07:18 BP 153/82 06/11/24 07:18 Pulse Ox 97 06/11/24 07:18 O2 Del Method Room Air 06/11/24 07:18 06/10/24 06/11/24 06/11/24 22:59 06:59 14:59 Intake Total 1050 / 1050 1050 / 1050 Output Total 1350 / 1700 300 / 2000 Balance -300 / -650 -300 / -950 1050 / 1050 Weight last 48 hrs Weight 46.833 kg Weight 46.266 kg Weight 56.245 kg Physical Exam 2 Narrative: Pleasant and cooperative Hemodynamically stable and on room air NG to low intermittent suction Surgical site without any active drainage [place] catheter in place Pleasant and cooperative No focal deficit S1, S2 Urinary Catheter Management: [place]: Cath Placed During This Visit: yes Reason for Continuing Indwelling Catheter: Other Urinary Catheter Date of Insertion: 06/09/24 Urinary Catheter Time of Insertion: 14:24 Data 06/11/24 05:10 06/11/24 05:10 Micro: Microbiology 06/09/24 09:48 Blood Culture - Preliminary Blood NEGATIVE TO DATE 06/09/24 09:09 Blood Culture - Preliminary Blood NEGATIVE TO DATE A&P Assessment and plan (1) Hypertension: (2) Small bowel obstruction: (3) Lumbar disc disease with radiculopathy: (4) Hypokalemia: Plan 73-year female with history abdominal surgeries presented with abdominal discomfort, she was diagnosed with closed-loop high-grade bowel obstruction, failed Gastrografin study, went for exploratory laparotomy 06/11 High-grade/closed-loop bowel obstruction Failed Gastrografin study Status post exploratory laparotomy Postop day 0 Continue Zosyn May discontinue Zosyn in next 48 hours if remain afebrile and no leukocytosis This was started empirically because she was considered at risk of perforation No signs of UTI Hypertension: Patient has hydralazine for as needed basis No active palpitations Hold p.o. amlodipine and baclofen along diltiazem, she takes diltiazem for history of palpitation and SVT DVT prophylaxis: Start Lovenox starting tonight after surgery N.p.o. Continue NG to low in for suction Monitor bowel function passage of flatus every day Continue PPN Appreciate dietary recommendations Hypokalemia: Replenished Continue D5 normal saline Attestations 2 Medical Necessity Statement*: Continue comanagement Diagnoses Hypertension I10 Small bowel obstruction K56.609 Lumbar disc disease with radiculopathy M51.16 Hypokalemia E87.6
--- NOTE | 2024-06-11 10:19 | PM.OP ---
Operative Report Date of procedure: June 11, 2024 Pre-op diagnosis: Small bowel obstruction Post-op diagnosis: Same Post-op findings: There was a high-grade small bowel obstruction, there was dense adhesions between the mid jejunum and descending colon, the small bowel distal to this area was completely decompressed, proximal small bowel appeared congested. After Lysis of additions proximal small bowel immediately improved and progression of intestinal closed and distal to the area of previous obstruction was noted. Procedure done: Exploratory laparotomy, extensive lysis of additions, repair of small bowel serosal tear Implants: none Specimens removed/disposition: none Surgeon: Oliver Wilder MD Back Seam Stitcher: DOMENICO OR Staff Estimated blood loss: 50 Brief History: Is a 73-year-old female who presented to the hospital with a small bowel obstruction, she failed a Gastrografin trial and therefore we decided to proceed for exploration. Procedure: Patient was brought into the OR, general anesthesia was given, the abdomen was prepped and draped in the usual sterile fashion. Midline laparotomy incision was made measuring about 25 cm from the epigastrium to the area below the umbilicus. The incision was deepened until the fascia was identified, I opened the fascia in the midline on the epigastrium, the peritoneum was then grasped with 2 clamps and opened with a Metzenbaum scissor, no evidence of significant additions to the anterior abdominal wall was noted, there was a small incisional hernia containing omental fat that was liberated with electrocautery and opened up as we open the laparotomy incision. Once the laparotomy was made I then placed an Aníbal wound protector in the wound. I then proceeded to eviscerate the small bowel, the proximal small bowel up to the mid jejunum appeared distended, there was some adhesions from the transverse mesocolon to the root of the mesentery that was because a slight constriction of the proximal bowel, this lesion was taken down with sharp dissection, the distal mid jejunum was noted to be completely adhesed to the ascending colon, adhesions were dense. The bowel distal to this area was completely decompressed I proceeded to run the bowel starting at the terminal ileum up to the area of obstruction and verified that this was a cause of the small bowel obstruction. I proceeded with a careful lysis of additions, this was done by finger fracturing and Metzenbaum scissors, no electrocautery was used, after extensive careful dissection I was able to separate the jejunum from the ascending colon. The ascending colon appeared healthy with no evidence of injuries to the colon wall, the small bowel appeared healthy but there was a 0.5 cm serosal tear that I then proceeded to repair using #3-0 Vicryl Lembert sutures. There was interloop adhesions also at this level, the interloop adhesions were taken down using sharp dissection and the integrity of the bowel was verified after additional lysis showing no evidence of injury. Upon release of all adhesions immediate progression of the enteric contents distal to the area of obstruction was noted, I then proceeded to test the integrity of this portion of the bowel in the area of the serosal tear repair underwater no evidence of air leak or leak of intestinal contents was noted. I then proceeded to run the bowel from the ligament of Treitz to the terminal ileum, bowel appeared healthy no other evidence of obstruction points. The colon was then examined no evidence of pathology noted but hard stool was noted in the whole colon. I then proceeded to washout the pelvis, while there was no contamination minimal amount of bleeding was noted, after washout no residual bleeding was noted hemostasis was verified. I then proceeded to verify the position of the NG tube at the level of the stomach, after repositioning good output was noted. Omentum was pulled down to cover the entire small bowel. I then proceeded to close the abdomen using #1 looped PDS for the fascia. The subcutaneous tissue was irrigated and hemostasis was verified, the skin was then closed with rico achieving very good approximation of the edges. Sterile dressing was applied. At the end of the procedure all counts were correct, the patient tolerated well the procedure and was transferred to the PACU in stable condition.
--- NOTE | 2024-06-11 10:30 | PM.MISC ---
Miscellaneous Note Purpose of Documentation: Update on patient care. Note: Exploratory laparotomy with lysis of additions was done. Patient will return to the floor, NG tube will remain in place and will recommend NG tube to remain at all times to no intermittent wall suction. I will encourage ambulation starting tomorrow, physical therapy consultation will be obtained for early mobilization due to patient's age. Patient will require an incentive spirometer. Once return of bowel function is noted I will plan to discontinue the NG tube.
[2024-06-11] MEDS: midazolam 1 mg/mL INJ 2 mL 2 MG IVP ×2 (10:40→11:02)
[2024-06-11 10:54] LABS: Glucose Point of Care 149 mg/dL (70-110)
[2024-06-11] MEDS: lidocaine 1% 5 ML in potassium chloride premix 100 ML 26.25 ML IV (12:08)
[2024-06-11] MEDS: acetaminophen 1,000 MG/100 ML PIGGYBACK 400 MG IV ×2 (12:09→20:12)
[2024-06-11] MEDS: dextrose 5%-sod chloride 0.9% 1,000 ML 75 ML IV (12:10)
[2024-06-11] MEDS: AA-Dex 4.25%-5% w/Lytes 1,000 ML with multivitamin inj 10 ML 42 ML IV (16:52)
[2024-06-11] MEDS: enoxaparin 40 mg/0.4 mL Syringe SUBCUT (18:22)
[2024-06-11] MEDS: pantoprazole 40 mg SDV IVP (18:22)
[2024-06-11] MEDS: ALPRAZolam 0.5 mg Tablet PO (20:12)
[2024-06-12 02:00] VITALS: BP 146/80; PULSE 87; RESP 15; TEMP 37.2; O2SAT 95
[2024-06-12 03:27] LABS: Basophils # 0.1 10^3/uL (0.0-0.1); Basophils % 1.2 %; Eosinophils # 0.2 10^3/uL (0.0-0.8); Eosinophils % 2.4 %; Hematocrit 38.1 % (36-47); Lymphocytes # 1.3 10^3/uL (0.8-4.8); Lymphocytes % 16.8 %; Mean Corpuscular HGB Conc 31.8 g/dL (30-55); Mean Corpuscular Hemoglobin 30.9 pg (27-33); Mean Corpuscular Volume 97.2 fl (85-98); Mean Platelet Volume 10.8 fL (7.4-10.4); Monocytes % 12.4 %; Neutrophils # 5.21 10^3/uL (1.8-7.7); Neutrophils % 66.7 %; Nucleated Red Blood Cells % 0 %; Platelet Count 308 10^3/cmm (157-399); Red Blood Count 3.92 10^6/uL (3.85-5.65); Red Cell Distribution Width 12.3 % (12.1-15.1); White Blood Count 7.81 10^3/uL (3.29-11.43)
[2024-06-12 03:48] LABS: Anion Gap 11.8 (5-19); Blood Urea Nitrogen 24 mg/dL (8-23); Calcium 7.7 mg/dL (8.5-10.5); Carbon Dioxide 26 mmol/L (22-29); Chloride 105 mmol/L (98-107); Glucose 164 mg/dL (65-115); Magnesium 2.2 mg/dL (1.7-2.3); Osmolality Calculated 296 mOsm/kg (285-295); Potassium 3.8 mmol/L (3.5-5.1); Sodium 139 mmol/L (136-145)
[2024-06-12 03:51] LABS: Creatinine Clr Calc Pharmacy 35.3241
[2024-06-12] MEDS: acetaminophen 1,000 MG/100 ML PIGGYBACK 400 MG IV (03:57)
[2024-06-12] MEDS: piperacillin-tazobactam 3.375 GM in sodium chloride 0.9% (plus) 50 ML IV ×3 (04:28→20:22)
[2024-06-12] MEDS: dextrose 5%-sod chloride 0.9% 1,000 ML 75 ML IV ×2 (05:28→16:52)
[2024-06-12 08:22] VITALS: BP 157/74; PULSE 87; RESP 19; TEMP 36.9; O2SAT 98
[2024-06-12] MEDS: pantoprazole 40 mg SDV IVP ×2 (08:26→16:52)
--- NOTE | 2024-06-12 09:00 | P.PN_ITS ---
Subjective 2 Subjective: Postoperative day 1 status post [place] laparotomy lysis of additions for small bowel obstruction. Patient doing well, abdominal pain has significantly improved. Has not passed gas or had a bowel movement yet but she is in good spirits this morning and is planning to ambulate. NG tube output remains high but has improved from previously it was 400 overnight and about 100 cc since 6 AM. Vitals/I&O/Wt Last Vital Signs Temp 98.5 F 06/12/24 08:22 Pulse 87 06/12/24 08:22 Resp 19 H 06/12/24 08:22 BP 157/74 06/12/24 08:22 Pulse Ox 98 06/12/24 08:22 O2 Del Method Room Air 06/12/24 08:22 O2 Flow Rate 3.5 06/11/24 12:45 06/11/24 06/12/24 06/12/24 22:59 06:59 14:59 Intake Total 1265 / 3340 1100 / 4440 50 / 50 Output Total 700 / 775 Balance 1265 / 3265 400 / 3665 50 / 50 Weight last 48 hrs Weight 100 lb 11.2 oz Weight 103 lb 4 oz Physical Exam 2 GI: OTHER: Abdomen is soft, nontender, surgical incision is covered with dressing and she is wearing an abdominal binder. Urinary Catheter Management: [place]: Cath Placed During This Visit: yes Reason for Continuing Indwelling Catheter: Other Urinary Catheter Date of Insertion: 06/09/24 Urinary Catheter Time of Insertion: 14:24 Data 06/12/24 02:36 06/12/24 02:36 A&P Assessment and plan (1) Small bowel obstruction: Plan Patient showing good progression after laparotomy for small bowel obstruction. Patient is high risk for developing ileus in the postoperative period. Will continue to monitoring a daily basis, NG tube needs to remain to low intermittent wall suction, patient will ambulate as much as possible today. If NG tube output improves and quality of the effluent becomes more bilious rather than enteric we might consider removing NG tube and starting diet soon as tomorrow. -NG tube to low intermittent suction -Pain control -Continue Zosyn for the next 24 to 48 hours -Continue trending labs. -Ambulate as tolerated- -incentive spirometer -PPI Attestations 2 Medical Necessity Statement*: Patient will require at least 48 hours of hospital stay to wait for return of bowel function and advancement of diet. Coding Level of Care Code Acute Code for [facility] Diagnoses Small bowel obstruction K56.609
[2024-06-12 12:06] VITALS: BP 164/88; PULSE 94; RESP 20; TEMP 36.8; O2SAT 94
--- NOTE | 2024-06-12 13:31 | P.PN_ITS ---
Subjective 2 Subjective: The patient is showing signs of improvement since surgery. Her pain is under good control. She has not passed gas yet. She has been able to ambulate, however did have more pain afterwards. She has had some nasal congestion that has made it difficult to breathe through her nose. She feels that she is doing well otherwise. Vitals/I&O/Wt Last Vital Signs Temp 98.2 F 06/12/24 12:06 Pulse 94 06/12/24 12:06 Resp 20 H 06/12/24 12:06 BP 164/88 06/12/24 12:06 Pulse Ox 94 06/12/24 12:06 O2 Del Method Room Air 06/12/24 12:06 O2 Flow Rate 3.5 06/11/24 12:45 06/11/24 06/12/24 06/12/24 22:59 06:59 14:59 Intake Total 1265 / 3340 1100 / 4440 50 / 50 Output Total 700 / 775 Balance 1265 / 3265 400 / 3665 50 / 50 Weight last 48 hrs Weight 100 lb 11.2 oz Weight 103 lb 4 oz Physical Exam 2 Narrative: General: Alert and oriented x 3. In no acute distress. Eyes: PERRLA, EOM intact, no discharge. Nose: NG tube in place. Neck: No thyromegaly. No lymphadenopathy. Heart: Regular rate and rhythm. Grade 3/6 systolic murmur. Lungs: Clear to auscultation bilaterally. No wheezes, crackles or ronchi. Abdomen: Soft, mild to moderate diffuse tenderness. No rebound tenderness noted. Incisional scar is clean and dry without signs of infection or dehiscence. Bandage in place. No hepatosplenomegaly. Bowel sounds hypoactive but present. Extremities: No pitting edema. Urinary Catheter Management: [place]: Cath Placed During This Visit: yes Reason for Continuing Indwelling Catheter: Other Urinary Catheter Date of Insertion: 06/09/24 Urinary Catheter Time of Insertion: 14:24 Data 06/12/24 02:36 06/12/24 02:36 A&P Assessment and plan (1) Small bowel obstruction: The patient is doing well status post laparotomy for small bowel obstruction on 06/11/2024. She is showing no signs of complications at this time. Continue with NG tube per surgery and start diet once they have cleared her. (2) Hypertension: The patient's blood pressure has been a little high. We will continue with hydralazine as needed for elevated blood pressure. Once she is able to take in food and liquids by mouth, we will start back on oral antihypertensives. Attestations 2 Medical Necessity Statement*: The patient will be here for greater than 2 midnights due to continued treatment after having small bowel obstruction. Coding Level of Care Code Acute Code for [facility] Diagnoses Small bowel obstruction K56.609 Hypertension I10
[2024-06-12 14:21] VITALS: PULSE 94; RESP 20; O2SAT 94
[2024-06-12 16:21] VITALS: BP 169/87; PULSE 89; RESP 18; TEMP 36.6; O2SAT 96
[2024-06-12] MEDS: enoxaparin 40 mg/0.4 mL Syringe SUBCUT (16:51)
[2024-06-12] MEDS: AA-Dex 4.25%-5% w/Lytes 1,000 ML with multivitamin inj 10 ML 42 ML IV (16:52)
[2024-06-12 20:00] VITALS: BP 126/75; PULSE 88; RESP 16; TEMP 37.2; O2SAT 96
[2024-06-12] MEDS: ALPRAZolam 0.5 mg Tablet PO (20:22)
[2024-06-12] MEDS: trazodone 50 mg Tablet 25 MG PO (20:59)
[2024-06-13] VITALS (8 sets, daily range): BP systolic 135–194; BP diastolic 77–96; PULSE 79–93; RESP 16–19; TEMP 36.4–37.4; O2SAT 94–98
[2024-06-13] MEDS: hyDRALAzine 20 mg/mL INJ 1 mL 5 MG IVP (00:20)
[2024-06-13] MEDS: ALPRAZolam 0.5 mg Tablet PO (00:52)
[2024-06-13 03:46] LABS: Basophils # 0.1 10^3/uL (0.0-0.1); Basophils % 0.9 %; Eosinophils # 0.5 10^3/uL (0.0-0.8); Hematocrit 32.5 % (36-47); Lymphocytes # 1.4 10^3/uL (0.8-4.8); Lymphocytes % 13.9 %; Mean Corpuscular HGB Conc 32.3 g/dL (30-55); Mean Corpuscular Hemoglobin 31.3 pg (27-33); Mean Corpuscular Volume 96.7 fl (85-98); Mean Platelet Volume 10.8 fL (7.4-10.4); Monocytes # 1.1 10^3/uL (0.2-0.9); Monocytes % 10.7 %; Neutrophils # 6.83 10^3/uL (1.8-7.7); Neutrophils % 68.9 %; Nucleated Red Blood Cells % 0 %; Platelet Count 288 10^3/cmm (157-399); Red Blood Count 3.36 10^6/uL (3.85-5.65); Red Cell Distribution Width 12.3 % (12.1-15.1); White Blood Count 9.92 10^3/uL (3.29-11.43)
[2024-06-13 04:04] LABS: Alanine Aminotransferase 8 U/L (0-33); Albumin Level 2.9 g/dL (3.5-5.2); Alkaline Phosphatase 74 U/L (35-105); Anion Gap 10.3 (5-19); Aspartate Amino Transferase 13 U/L (0-32); Blood Urea Nitrogen 15 mg/dL (8-23); Calcium 7.9 mg/dL (8.5-10.5); Carbon Dioxide 24 mmol/L (22-29); Chloride 110 mmol/L (98-107); Creatinine Clr Calc Pharmacy 43.7116; Globulin 2.3 g/dL (1.3-4.6); Glucose 140 mg/dL (65-115); Osmolality Calculated 295 mOsm/kg (285-295); Phosphorus 1.5 mg/dL (2.5-4.5); Potassium 3.3 mmol/L (3.5-5.1); Sodium 141 mmol/L (136-145); Total Bilirubin 0.3 mg/dL (0.15-1.2); Total Protein 5.2 g/dL (6.6-8.7)
[2024-06-13] MEDS: piperacillin-tazobactam 3.375 GM in sodium chloride 0.9% (plus) 50 ML IV ×2 (04:33→17:37)
[2024-06-13] MEDS: lidocaine 1% 5 ML in potassium chloride premix 100 ML 52.5 ML IV (04:54)
[2024-06-13] MEDS: dextrose 5%-sod chloride 0.9% 1,000 ML 75 ML IV (04:55)
[2024-06-13] MEDS: pantoprazole 40 mg SDV IVP ×2 (08:29→17:37)
--- NOTE | 2024-06-13 09:27 | P.PN_ITS ---
Subjective 2 Subjective: Postoperative day 2 status post respiratory laparotomy and lysis of additions for small bowel obstruction. Patient is doing okay, no gas or bowel movement yet. No significant abdominal pain. NG output was 150 cc overnight.Appears slightly confused. Vitals/I&O/Wt Last Vital Signs Temp 97.6 F 06/13/24 07:19 Pulse 82 06/13/24 08:12 Resp 16 06/13/24 08:12 BP 135/80 06/13/24 07:19 Pulse Ox 98 06/13/24 08:12 O2 Del Method Room Air 06/13/24 08:12 O2 Flow Rate 3.5 06/11/24 12:45 06/12/24 06/13/24 06/13/24 22:59 06:59 14:59 Intake Total 1912 1108.75 / 3071.75 Output Total 1999 450 / 2450 Balance -87 / -37 658.75 / 621.75 Weight last 48 hrs Weight 97 lb 9 oz Weight 100 lb 11.2 oz Physical Exam 2 GI: OTHER: Abdomen is soft, mildly distended, appropriately tender. Urinary Catheter Management: [place]: Cath Placed During This Visit: yes Reason for Continuing Indwelling Catheter: Other Urinary Catheter Date of Insertion: 06/09/24 Urinary Catheter Time of Insertion: 14:24 Data 06/13/24 03:12 06/13/24 03:12 A&P Assessment and plan (1) Small bowel obstruction: Plan Patient showing good progression after laparotomy for small bowel obstruction. Has not had a bowel movement yet is not passing gas yet, she is high risk for postoperative ileus, I will encourage ambulation we will ask physical therapy to see her to see if they can get her to ambulate. NG tube should stay in place until there isGas or bowel movement.Vital signs are stable labs are normal. I think she needs more ambulation to stimulate bowel motility. In addition she has hypokalemic and hypophosphatemic. Potassium has been replaced bath phosphorus has not been replaced yet, I discussed the case with medical team and they will proceed with phosphorus replacement. Ideally I will like to have the potassium level of 4 a phosphorus of level of 3 and magnesium level of 2 to have an optimal environment for GI motility. I will continue to follow on a daily basis. Attestations 2 Medical Necessity Statement*: Waiting on return of bowel function. Will likely require 48 to 72 hours more of hospital stay. Coding Level of Care Code Acute Code for [facility] Diagnoses Small bowel obstruction K56.609
--- NOTE | 2024-06-13 12:33 | PC.SOCIAL ---
IMM Updated Updated pt on IMM. No questions voiced. Provided pt a copy. Initialed, dated, & timed copy in chart.
[2024-06-13] MEDS: potassium phosphate (mMol PO4) 30 MMOL in sodium chloride 0.9% (100 ml) 100 ML 23.16 MMOL IV (13:38)
--- NOTE | 2024-06-13 14:49 | P.PN_ITS ---
Subjective 2 Subjective: Postoperative day 3 status post respiratory laparotomy and lysis of additions for small bowel obstruction. Patient is doing okay, no gas or bowel movement yet. No significant abdominal pain. Seems alert awake oriented x 3. NG output still has bilious discharge, spoke with surgery, patient to be started on diet once NG output less than 150 mL/h Medications: Reviewed: Yes Vitals/I&O/Wt Last Vital Signs Temp 97.5 F L 06/13/24 11:40 Pulse 87 06/13/24 11:40 Resp 19 H 06/13/24 11:40 BP 168/83 06/13/24 11:40 Pulse Ox 94 06/13/24 11:40 O2 Del Method Room Air 06/13/24 11:40 O2 Flow Rate 3.5 06/11/24 12:45 06/12/24 06/13/24 06/13/24 22:59 06:59 14:59 Intake Total 1912 / 1962 1108.75 / 3071.75 381.25 / 381.25 Output Total 1999 / 1999 450 / 2450 Balance -87 / -37 658.75 / 621.75 381.25 / 381.25 Weight last 48 hrs Weight 44.254 kg Weight 45.677 kg Physical Exam 2 Narrative: General: Alert and oriented x 3. In no acute distress. Eyes: PERRLA, EOM intact, no discharge. Nose: NG tube in place. Neck: No thyromegaly. No lymphadenopathy. Heart: Regular rate and rhythm. Grade 3/6 systolic murmur. Lungs: Clear to auscultation bilaterally. No wheezes, crackles or ronchi. Abdomen: Soft, mild to moderate diffuse tenderness. No rebound tenderness noted. Incisional scar is clean and dry without signs of infection or dehiscence. Bandage in place. No hepatosplenomegaly. Normal bowel sounds Extremities: No pitting edema. Urinary Catheter Management: [place]: Cath Placed During This Visit: yes Reason for Continuing Indwelling Catheter: Other Urinary Catheter Date of Insertion: 06/09/24 Urinary Catheter Time of Insertion: 14:24 Data 06/13/24 03:12 06/13/24 03:12 A&P Assessment and plan (1) Small bowel obstruction: The patient is doing well status post laparotomy for small bowel obstruction on 06/11/2024. She is showing no signs of complications at this time. Continue with NG tube per surgery and start diet once they have cleared her. Potassium and phosphorus replacement done as per surgery. (2) Hypertension: The patient's blood pressure has been a little high. We will continue with hydralazine as needed for elevated blood pressure. Once she is able to take in food and liquids by mouth, we will start back on oral antihypertensives. Attestations 2 Medical Necessity Statement*: She needs continued hospitalization crossing 2 midnights for management of small bowel obstruction s/p surgery Coding Level of Care Code Acute Code for [facility] Diagnoses Small bowel obstruction K56.609 Hypertension I10
--- NOTE | 2024-06-13 16:00 | SUR.PREOP ---
PICC CONSENT Discussed procedure with with patient/family. Patient noted to have bilateral iv's to upper arms sometime in the recent past. Patient found to have areas of warmed sensation extending from the right ac into her upper arm in the basilic and median cubital space. Cephalic access seems clear of reddened/warm areas. The left upper extremity has no apparent areas unaffected by the previous IV infiltrations. I called the MD for clarification of PICC orders v/s central line placement. She agrees that PICC is not as indicated with the edema and redness over the sites. She states the patient does not meet criteria for central line placement at this time. Requests we place midline in right cephalic at this time. Noted. Orders changed. Appropriate consents obtained.
[2024-06-13] MEDS: AA-Dex 4.25%-5% w/Lytes 1,000 ML with multivitamin inj 10 ML 42 ML IV (17:37)
[2024-06-13] MEDS: enoxaparin 40 mg/0.4 mL Syringe SUBCUT (17:37)
[2024-06-13] MEDS: LORazepam 0.5 mg Tablet PO (21:02)
[2024-06-14] VITALS (8 sets, daily range): BP systolic 154–189; BP diastolic 76–92; PULSE 77–100; RESP 15–20; TEMP 36.4–37.4; O2SAT 94–98
[2024-06-14] MEDS: piperacillin-tazobactam 3.375 GM in sodium chloride 0.9% (plus) 50 ML IV ×3 (02:34→17:55)
[2024-06-14] MEDS: dextrose 5%-sod chloride 0.9% 1,000 ML 75 ML IV ×2 (02:34→16:28)
[2024-06-14] MEDS: temazepam 15 mg Capsule PO (03:09)
[2024-06-14] MEDS: hyDRALAzine 20 mg/mL INJ 1 mL 5 MG IVP (04:25)
[2024-06-14 05:34] LABS: Basophils # 0.1 10^3/uL (0.0-0.1); Basophils % 0.9 %; Eosinophils # 0.6 10^3/uL (0.0-0.8); Hematocrit 34.7 % (36-47); Lymphocytes # 1.4 10^3/uL (0.8-4.8); Lymphocytes % 13.9 %; Mean Corpuscular HGB Conc 31.7 g/dL (30-55); Mean Corpuscular Hemoglobin 31.4 pg (27-33); Mean Corpuscular Volume 99.1 fl (85-98); Mean Platelet Volume 10.4 fL (7.4-10.4); Monocytes # 1.1 10^3/uL (0.2-0.9); Monocytes % 10.5 %; Neutrophils # 6.85 10^3/uL (1.8-7.7); Nucleated Red Blood Cells % 0 %; Platelet Count 292 10^3/cmm (157-399); Red Cell Distribution Width 12.3 % (12.1-15.1); White Blood Count 10.07 10^3/uL (3.29-11.43)
[2024-06-14 05:51] LABS: Anion Gap 15.3 (5-19); Blood Urea Nitrogen 10 mg/dL (8-23); Calcium 8.3 mg/dL (8.5-10.5); Carbon Dioxide 20 mmol/L (22-29); Chloride 109 mmol/L (98-107); Creatinine Clr Calc Pharmacy 41.5534; Glucose 134 mg/dL (65-115); Osmolality Calculated 293 mOsm/kg (285-295); Phosphorus 2.5 mg/dL (2.5-4.5); Potassium 3.3 mmol/L (3.5-5.1); Sodium 141 mmol/L (136-145)
[2024-06-14] MEDS: haloperidol inj 5 mg/mL INJ 1 mL 2 MG IM (06:11)
[2024-06-14] MEDS: lidocaine 1% 5 ML in potassium chloride premix 100 ML 26.25 ML IV ×2 (08:31→14:14)
[2024-06-14] MEDS: pantoprazole 40 mg SDV IVP ×2 (08:32→17:32)
--- NOTE | 2024-06-14 09:43 | PC.CHAP ---
Pastoral Care Encounter/Spiritual Assessment Type of Contact [] Declined belling machine operator visit [] Patient/Family/Request visit [] Outpatient visit [] Follow-up visit [] Physician referral [] Code/Alert [x] Routine visit [] Staff referral [] Actively dying [] Patient sleeping [x] Family support [] [] Out of room [] Palliative care [] [] Receiving care in room [] Pre-surgical visit [] Trauma [] Long length of stay [] ICU visit [] Other: Relational/Emotional Strength [x] Patient feels connected with others/family/visitors/staff [] Distress [] Loneliness/isolation [] Abandonment Spirituality of Patient [x] Person of Melisa [] Attends Church of their Melisa [x] Believes in Prayer [] Reads Bible or Cheondoism materials [] There are Spiritual issues to be addressed Premium Card Cancellation Clerk Interventions [x] Prayer [x] Active listening [x] Non-anxious presence [x] Spiritual/emotional support [] Crisis/trauma care [] Spiritual counseling [] Bereavement support [] Provided bereavement packet [] Provided Bible/devotional materials [] Provided toy/stuffed animal, coloring book to patient or family member [] Provided Communion [] Anointing/[place] [] Salvation [x] Completed spiritual assessment [] Other: Impact on Illness or Injury [] Angry [] Fearful [] Anxious [] Often cries [] Exhaustion [] Unable to work [] Unable to attend scientology [] Unable to walk/stand [] Unable to read [] Unable to drive [] Unable to eat/drink [] Unable to sleep [] Unable to be with family [] Patient intubated [] Other: Summary Time spent with patient 10 min
[2024-06-14] MEDS: quetiapine 25 mg Tablet PO ×2 (10:33→20:13)
--- NOTE | 2024-06-14 10:39 | P.PN_ITS ---
Subjective 2 Subjective: Postoperative day 3 status post respiratory laparotomy and lysis of additions for small bowel obstruction. Appears to be sundowning, according to the family she has become a little bit more bearable over the last 24 hours which is concerning to them. Regarding the surgical standpoint she has improved, she has passed some gas no bowel movement yet. I think her return of bowel function is going to be slow as she had significant stool in the colon during exploration which indicates chronic constipation. Depending on level of NG tube I may decide to proceed with 1 dose of laxative and removing NG tube later in the afternoon. Vitals/I&O/Wt Last Vital Signs Temp 98.9 F 06/14/24 07:52 Pulse 81 06/14/24 07:52 Resp 20 H 06/14/24 07:52 BP 172/76 06/14/24 07:52 Pulse Ox 94 06/14/24 07:52 O2 Del Method Room Air 06/14/24 07:52 O2 Flow Rate 3.5 06/11/24 12:45 06/13/24 06/14/24 06/14/24 22:59 06:59 14:59 Intake Total 1060.000 / 1467.112 618.75 / 2085.862 50 / 50 Output Total 1950 / 1950 1250 / 3200 Balance -890.000 / -482.888 -631.25 / -1114.138 50 / 50 Weight last 48 hrs Weight 88 lb 4.8 oz Weight 97 lb 9 oz Physical Exam 2 GI: OTHER: Abdomen is soft, minimally tender to palpation, surgical incision is healing well. Wound care was done today Urinary Catheter Management: [place]: Cath Placed During This Visit: yes Reason for Continuing Indwelling Catheter: Other Urinary Catheter Date of Insertion: 06/09/24 Urinary Catheter Time of Insertion: 14:24 Data 06/14/24 04:25 06/14/24 04:25 Micro: Microbiology 06/09/24 09:48 Blood Culture - Final Blood NO GROWTH AFTER 5 DAYS 06/09/24 09:09 Blood Culture - Final Blood NO GROWTH AFTER 5 DAYS A&P Assessment and plan (1) Small bowel obstruction: Plan Patient is showing good progression after exploratory laparotomy and lysis of additions for small bowel obstruction. She does have bowel sounds on abdominal exam and she did pass gas. Vital signs and laboratory workup have been unremarkable. Has been ambulating. NG effluent appears to be more clear. Will continue current management NG tube to low intermittent wall suction, we will monitor abdominal exam we will probably remove the NG tube in the next 24 hours if things continue to progress in this way. Continue electrolyte replacement for a potassium of 4 a phosphorus of 3 and a magnesium of 2. Attestations 2 Medical Necessity Statement*: Will require at least 24 to 48 hours of hospital stay for continued management of a small bowel obstruction. Coding Level of Care Code Acute Code for Chg Fwd Diagnoses Small bowel obstruction K56.609
--- NOTE | 2024-06-14 13:09 | P.PN_ITS ---
Subjective 2 Subjective: Overnight she was found to be very restless by the nursing staff. She received temazepam earlier yesterday and she was found to be aggressive and hitting her daughter. She also received overnight Ativan, trazodone which did not help or make her sleep. She again received another dose of temazepam this morning around 3:00 and she became very agitated afterwards. Seen her at bedside along with the daughter and the nurse. She seems still confused, coherent at times but as per the daughter she has not had a good sleep since last 4 to 5 days. Daughter not sure about dementia at baseline but reports her having altered mental status and behavior intermittently at home Medications: Reviewed: Yes Vitals/I&O/Wt Last Vital Signs Temp 98.5 F 06/14/24 12:35 Pulse 87 06/14/24 12:35 Resp 18 06/14/24 12:35 BP 171/91 06/14/24 12:35 Pulse Ox 95 06/14/24 12:35 O2 Del Method Room Air 06/14/24 12:35 O2 Flow Rate 3.5 06/11/24 12:45 06/13/24 06/14/24 06/14/24 22:59 06:59 14:59 Intake Total 1060.000 / 1467.112 618.75 / 2085.862 50 / 50 Output Total 1950 / 1950 1250 / 3200 Balance -890.000 / -482.888 -631.25 / -1114.138 50 / 50 Weight last 48 hrs Weight 40.052 kg Weight 44.254 kg Physical Exam 2 Narrative: She is alert awake oriented x 3, waxing and waning mental status, seems calm at this time Chest clear to auscultation bilaterally Cardiovascular normal heart sounds Abdomen soft nontender nondistended normal bowel sounds Extremities no edema noted bilateral lower extremity Urinary Catheter Management: [place]: Cath Placed During This Visit: yes Reason for Continuing Indwelling Catheter: Other Urinary Catheter Date of Insertion: 06/09/24 Urinary Catheter Time of Insertion: 14:24 Data 06/14/24 04:25 06/14/24 04:25 Micro: Microbiology 06/09/24 09:48 Blood Culture - Final Blood NO GROWTH AFTER 5 DAYS 06/09/24 09:09 Blood Culture - Final Blood NO GROWTH AFTER 5 DAYS A&P Assessment and plan (1) Small bowel obstruction: The patient is doing well status post laparotomy for small bowel obstruction on 06/11/2024. She is showing no signs of complications at this time. Continue with NG tube per surgery and start diet once they have cleared her. Potassium, magnesium and phosphorus replacement done as per surgery. NG tube aspirate improved and has been draining very low overnight. She passed gas but no bowel movements yet. Hence continue NG tube to suction per surgery (2) Hypertension: The patient's blood pressure has been a little high. We will continue with hydralazine as needed for elevated blood pressure. Once she is able to take in food and liquids by mouth, we will start back on oral antihypertensives. (3) Delirium due to medical condition with behavioral disturbance: Likely secondary to being postsurgical and hospitalization. As per the discussion with the family patient might have baseline mild dementia. She was having normal mental status on admission and has been delirious postsurgery. Has not been sleeping overnight. Medications including Ativan trazodone and temazepam not helping with the delirium. Will try Seroquel 25 mg twice daily. Family to stay at bedside. Attestations 2 Medical Necessity Statement*: She needs continued hospitalization crossing 2 midnights for management of small bowel obstruction s/p surgery Time Spent in Patient Care: 20 minutes Coding Level of Care Code Acute Code for g Fwd Diagnoses Small bowel obstruction K56.609 Hypertension I10 Delirium due to medical condition with behavioral disturbance F05 Time Spent (min) 20
--- NOTE | 2024-06-14 13:38 | XRR_ITS ---
PROCEDURE INFORMATION: Exam: XR Abdomen Exam date and time: 06/14/2024 2:40 PM Age: 73 years old Clinical indication: Screening exam; Post surgical status; Post op ileus; Prior surgery; Surgery date: Post-operative (0-2 days) TECHNIQUE: Imaging protocol: Radiologic exam of the abdomen. Views: Frontal supine view of the abdomen. 1 View. COMPARISON: CR (ABDOMEN, ) 06/10/2024 5:48 PM FINDINGS: Tubes, catheters and devices: Tip of the NG tube is in the body of the stomach. Gastrointestinal tract: Considerable decrease in small bowel and colonic gas. Currently there is no obvious bowel obstruction or convincing evidence of free air. Intraperitoneal space: Unchanged surgical clips in the right upper quadrant. Vasculature: Unchanged arterial calcification. Bones/joints: Unchanged scoliosis and spondylosis. Soft tissues: New vertically oriented skin rico over the midline of the abdomen and pelvis. XR/XR abdomen 1V* [id number] IMPRESSION: Postoperatively there is not current evidence of bowel obstruction or obvious free air.
--- NOTE | 2024-06-14 13:38 | PM.MISC ---
Miscellaneous Note Purpose of Documentation: Update on patient care Note: Evaluated the patient this afternoon. She has not ambulated, has been in bed because she was confused received some medication sleeping. Have extensive succussion with the family I have asked him to please ambulate the patient as soon as he wakes up. According to the family reports she has been passing some gas and this morning after they move her they witnessed her passing gas. NG tube has been having no output over the last 4 hours. I will obtain an x-ray of the abdomen to evaluate for persistent ileus. I will monitor the NG output until the morning. If by tomorrow there is no improvement of her symptoms I may give her Gastrografin and get some x-rays as this has been show 2 improved postoperative ileus. In the meantime we will continue current management.
[2024-06-14] MEDS: enoxaparin 40 mg/0.4 mL Syringe SUBCUT (17:32)
[2024-06-14] MEDS: potassium phosphate (mMol PO4) 30 MMOL in sodium chloride 0.9% (100 ml) 100 ML 23.16 MMOL IV (18:42)
[2024-06-14] MEDS: AA-Dex 4.25%-5% w/Lytes 1,000 ML with multivitamin inj 10 ML 42 ML IV (20:12)
[2024-06-15] VITALS (7 sets, daily range): BP systolic 159–186; BP diastolic 93–114; PULSE 88–110; RESP 14–19; TEMP 36.5–37.7; O2SAT 94–96
--- NOTE | 2024-06-15 00:03 | PC.NURSE ---
Patient's son came to nurses station claiming the patient had pulled her NG tube out. This nurse went to assess the patient and found the NG tube almost entirely removed. Patient has been passing gas and had very little gastric contents suctioned in the past two shifts. Doctor was informed of this and the NG tube was removed completely with instructions to place again if patient began to have N/V.
[2024-06-15] MEDS: hyDRALAzine 20 mg/mL INJ 1 mL 5 MG IVP (00:34)
[2024-06-15] MEDS: haloperidol inj 5 mg/mL INJ 1 mL 2 MG IM (00:58)
[2024-06-15] MEDS: piperacillin-tazobactam 3.375 GM in sodium chloride 0.9% (plus) 50 ML IV ×3 (01:00→16:59)
[2024-06-15 05:53] LABS: Anion Gap 15.7 (5-19); Blood Urea Nitrogen 11 mg/dL (8-23); Calcium 8.4 mg/dL (8.5-10.5); Carbon Dioxide 19 mmol/L (22-29); Chloride 112 mmol/L (98-107); Creatinine Clr Calc Pharmacy 46.4959; Glucose 163 mg/dL (65-115); Magnesium 1.9 mg/dL (1.7-2.3); Osmolality Calculated 299 mOsm/kg (285-295); Phosphorus 3.3 mg/dL (2.5-4.5); Potassium 3.7 mmol/L (3.5-5.1); Sodium 143 mmol/L (136-145)
[2024-06-15] MEDS: dextrose 5%-sod chloride 0.9% 1,000 ML 75 ML IV (06:12)
[2024-06-15 06:21] LABS: Glucose Point of Care 166 mg/dL (70-110)
--- NOTE | 2024-06-15 07:50 | P.PN_ITS ---
Subjective 2 Subjective: Postoperative day 4 status post respiratory laparotomy and lysis of additions for small bowel obstruction. Continued to be confused overnight. She pulled her NG tube. NG output until removed and the patient pull it out it was about 150 cc over a period of more than 12 hours. Has been passing gas, no bowel movement yet. Vitals/I&O/Wt Last Vital Signs Temp 98.4 F 06/15/24 04:00 Pulse 108 H 06/15/24 04:00 Resp 17 06/15/24 04:00 BP 175/98 06/15/24 04:00 Pulse Ox 95 06/15/24 04:00 O2 Del Method Room Air 06/14/24 16:36 O2 Flow Rate 3.5 06/11/24 12:45 06/14/24 06/15/24 06/15/24 22:59 06:59 14:59 Intake Total 2165 / 2370 1160 / 3530 0 / 0 Output Total 2450 / 2450 1550 / 4000 Balance -285 / -80 -390 / -470 0 / 0 Weight last 48 hrs Weight 116 lb 11.2 oz Weight 88 lb 4.8 oz Physical Exam 2 GI: OTHER: Abdominal exam is benign abdomen is soft, appropriately tender to palpation, minimally distended. Urinary Catheter Management: [place]: Cath Placed During This Visit: yes Reason for Continuing Indwelling Catheter: Other Urinary Catheter Date of Insertion: 06/09/24 Urinary Catheter Time of Insertion: 14:24 Data 06/14/24 04:25 06/15/24 05:11 Micro: Microbiology 06/09/24 09:48 Blood Culture - Final Blood NO GROWTH AFTER 5 DAYS 06/09/24 09:09 Blood Culture - Final Blood NO GROWTH AFTER 5 DAYS A&P Assessment and plan (1) Small bowel obstruction: Plan Patient showing good progression after exploratory laparotomy and lysis of additions for small bowel obstruction. No significant issues overnight. But she pulled her NG tube. An x-ray of the abdomen I obtained yesterday afternoon shows no evidence of obstruction or ileus. Plan was to remove the NG tube this morning so since it has been removed we will start the patient on clear liquid diet and twice a day MiraLAX. I did a rectal examination during today's visit and a large amount of impacted stool was retrieved from the rectal vault. I help with this fecal disimpaction plus the stool softener and p.o. intake patient will be able to have a bowel movement. If she does not have a bowel movement until tomorrow I will plan to give her a dose of magnesium citrate. -Clear liquid diet -Rectal disimpaction done today -Ambulate as tolerated -MiraLAX twice daily as scheduled -Replace electrolytes as needed -Plan is to advance diet as tolerated. Attestations 2 Medical Necessity Statement*: Patient will require 24 to 40 hours more of hospital stay for management of SBO. Coding Level of Care Code Acute Code for Chg Fwd Diagnoses Small bowel obstruction K56.609
[2024-06-15] MEDS: pantoprazole 40 mg SDV IVP ×2 (08:59→16:58)
[2024-06-15] MEDS: polyethylene glycol 3350 Pkt 17 gm PO ×2 (08:59→16:59)
[2024-06-15] MEDS: lidocaine 1% 5 ML in potassium chloride premix 100 ML 26.25 ML IV (11:30)
[2024-06-15 12:03] LABS: Glucose Point of Care 234 mg/dL (70-110)
[2024-06-15 12:03] LABS: Glucose Point of Care 231 mg/dL (70-110)
--- NOTE | 2024-06-15 12:54 | PC.SOCIAL ---
IMM Updated Updated pt's , on IMM. No questions voiced. Provided pt a copy. Initialed, dated, & timed copy in chart.
--- NOTE | 2024-06-15 13:47 | P.PN_ITS ---
Subjective 2 Subjective: Events noted overnight. She was still minimally agitated and unable to sleep last night as per the family and nursing staff. Seen her at bedside this morning, denies any complaints. As per the bedside nurse she had manual disimpaction this morning by surgery, she was able to pass gas, she pulled out her NG tube and has been given laxatives for constipation. Medications: Reviewed: Yes Vitals/I&O/Wt Last Vital Signs Temp 99.9 F H 06/15/24 12:00 Pulse 102 H 06/15/24 12:00 Resp 17 06/15/24 12:00 BP 159/98 06/15/24 12:00 Pulse Ox 95 06/15/24 12:00 O2 Del Method Room Air 06/15/24 12:00 O2 Flow Rate 3.5 06/11/24 12:45 06/14/24 06/15/24 06/15/24 22:59 06:59 14:59 Intake Total 2165 / 2370 1160 / 3530 1602.5 / 1602.5 Output Total 2450 / 2450 1550 / 4000 1900 / 1900 Balance -285 / -80 -390 / -470 -297.5 / -297.5 Weight last 48 hrs Weight 52.934 kg Weight 40.052 kg Physical Exam 2 Narrative: She is alert awake oriented x 3, waxing and waning mental status, seems calm at this time Chest clear to auscultation bilaterally Cardiovascular normal heart sounds Abdomen soft nontender nondistended normal bowel sounds Extremities no edema noted bilateral lower extremity Urinary Catheter Management: [place]: Cath Placed During This Visit: yes Reason for Continuing Indwelling Catheter: Other Urinary Catheter Date of Insertion: 06/09/24 Urinary Catheter Time of Insertion: 14:24 Data 06/14/24 04:25 06/15/24 05:11 Micro: Microbiology 06/09/24 09:48 Blood Culture - Final Blood NO GROWTH AFTER 5 DAYS 06/09/24 09:09 Blood Culture - Final Blood NO GROWTH AFTER 5 DAYS A&P Assessment and plan (1) Small bowel obstruction: The patient is doing well status post laparotomy for small bowel obstruction on 06/11/2024. She is showing no signs of complications at this time. An x-ray of the abdomen obtained yesterday showed no evidence of obstruction or ileus. She pulled out her NG tube overnight. Has been started on clear liquid diet by surgery. Electrolytes noted. Will replete potassium. Had manual disimpaction done by surgery this morning. Continue laxatives as per surgery recommendations. (2) Hypertension: Blood pressure has been on the higher side likely due to agitation. Will resume home medications amlodipine, diltiazem. (3) Delirium due to medical condition with behavioral disturbance: Likely secondary to being postsurgical and hospitalization. As per the discussion with the family patient might have baseline mild dementia. She was having normal mental status on admission and has been delirious postsurgery. Will add Seroquel 25 mg daily at bedtime. Attestations 2 Medical Necessity Statement*: She needs continued hospitalization for management of postoperative care for small bowel obstruction. Off NG tube, able to tolerate clear liquids this morning, had constipation, manual disimpaction done and laxatives given. Time Spent in Patient Care: 20 minutes Coding Level of Care Code Acute Code for g Fwd Diagnoses Small bowel obstruction K56.609 Hypertension I10 Delirium due to medical condition with behavioral disturbance F05 Time Spent (min) 20
--- NOTE | 2024-06-15 14:57 | PM.MISC ---
Miscellaneous Note Purpose of Documentation: Update on patient care Note: Examined this afternoon, she is tolerating clear liquid diet, per patient family and nursing reports she has been passing large amount of gas. No bowel movement yet. On physical examination the abdomen is soft, minimal tenderness to palpation, there is good bowel sounds. Plan is to continue ambulation, will discontinue [place] catheter and measure residuals to ensure no urinary retention. I will repeat rectal examination tomorrow morning to rule out additional need for disimpaction.
[2024-06-15] MEDS: enoxaparin 40 mg/0.4 mL Syringe SUBCUT (16:58)
[2024-06-15] MEDS: quetiapine 25 mg Tablet PO (21:06)
[2024-06-16] MEDS: piperacillin-tazobactam 3.375 GM in sodium chloride 0.9% (plus) 50 ML IV (03:34)
[2024-06-16] MEDS: hyDRALAzine 20 mg/mL INJ 1 mL 5 MG IVP (03:45)
[2024-06-16 04:00] VITALS: BP 182/102; PULSE 94; RESP 18; TEMP 37.4; O2SAT 96
[2024-06-16 04:58] LABS: Basophils # 0.1 10^3/uL (0.0-0.1); Basophils % 1.3 %; Eosinophils # 0.5 10^3/uL (0.0-0.8); Eosinophils % 6.2 %; Hematocrit 35.6 % (36-47); Lymphocytes # 2.2 10^3/uL (0.8-4.8); Lymphocytes % 26.4 %; Mean Corpuscular HGB Conc 32.3 g/dL (30-55); Mean Corpuscular Hemoglobin 30.8 pg (27-33); Mean Corpuscular Volume 95.4 fl (85-98); Mean Platelet Volume 9.9 fL (7.4-10.4); Monocytes # 1.2 10^3/uL (0.2-0.9); Monocytes % 14.9 %; Neutrophils # 4.05 10^3/uL (1.8-7.7); Neutrophils % 49.1 %; Nucleated Red Blood Cells % 0 %; Platelet Count 336 10^3/cmm (157-399); Red Blood Count 3.73 10^6/uL (3.85-5.65); Red Cell Distribution Width 12.6 % (12.1-15.1); White Blood Count 8.25 10^3/uL (3.29-11.43)
[2024-06-16 05:25] LABS: Anion Gap 16.1 (5-19); Blood Urea Nitrogen 9 mg/dL (8-23); Calcium 8.8 mg/dL (8.5-10.5); Carbon Dioxide 20 mmol/L (22-29); Chloride 113 mmol/L (98-107); Creatinine Clr Calc Pharmacy 32.8488; Glucose 118 mg/dL (65-115); Osmolality Calculated 300 mOsm/kg (285-295); Phosphorus 3.4 mg/dL (2.5-4.5); Potassium 4.1 mmol/L (3.5-5.1); Sodium 145 mmol/L (136-145)
[2024-06-16 06:30] VITALS: BP 177/93
--- NOTE | 2024-06-16 07:00 | P.PN_ITS ---
Subjective 2 Subjective: Postoperative day 5 status post respiratory laparotomy and lysis of additions for small bowel obstruction. Mental status has completely improved, she was able to sleep overnight. Had a large bowel movement yesterday afternoon, has been passing a lot of gas, abdomen has remained not painful Vitals/I&O/Wt Last Vital Signs Temp 99.3 F 06/16/24 04:00 Pulse 94 06/16/24 04:00 Resp 18 06/16/24 04:00 BP 177/93 06/16/24 06:30 Pulse Ox 96 06/16/24 04:00 O2 Del Method Room Air 06/15/24 16:00 O2 Flow Rate 3.5 06/11/24 12:45 06/15/24 06/16/24 06/16/24 22:59 06:59 14:59 Intake Total 1079.3 / 3161.8 0 / 3161.8 Output Total 425 / 3175 1600 / 4775 Balance 654.3 / -13.2 -1600 / -1613.2 Weight last 48 hrs Weight 75 lb 8 oz Weight 116 lb 11.2 oz Physical Exam 2 GI: OTHER: Abdominal exam is benign, positive bowel sounds, abdomen soft nontender nondistended. Surgical incision covered with dressing. Urinary Catheter Management: [place]: Cath Placed During This Visit: yes Reason for Continuing Indwelling Catheter: Other Urinary Catheter Date of Insertion: 06/09/24 Urinary Catheter Time of Insertion: 14:24 Data 06/16/24 04:30 06/16/24 04:30 A&P Assessment and plan (1) Small bowel obstruction: Plan Excellent progression after exploratory laparotomy and lysis of additions for bowel obstruction. Patient is having bowel movements and passing gas, she is tolerating liquid diet. Vital signs are stable, white count is normal. We will advance diet to GI soft as tolerated, I will encourage ambulation. We will remove [place] catheter and proceed with void check. Patient is ready to transition to to the outpatient setting from the general surgery standpoint. Placement and home support is being arranged by medical team -GI soft diet -Continue twice a day MiraLAX -Ambulate as tolerated -[place] catheter out -DC Zosyn -Discharge planning per medical team Attestations 2 Medical Necessity Statement*: Per medical Coding Level of Care Code Acute Code for Chg Fwd Diagnoses Small bowel obstruction K56.609
[2024-06-16 07:50] LABS: Glucose Point of Care 109 mg/dL (70-110)
[2024-06-16 07:50] LABS: Glucose Point of Care 111 mg/dL (70-110)
[2024-06-16 07:51] LABS: Glucose Point of Care 105 mg/dL (70-110)
[2024-06-16 07:57] VITALS: BP 151/83; PULSE 110; RESP 18; O2SAT 93
[2024-06-16] MEDS: amlodipine 5 mg Tablet PO (08:34)
[2024-06-16] MEDS: dilTIAZem ER (24HR) 180 mg Capsule 360 MG PO (08:34)
[2024-06-16] MEDS: pantoprazole 40 mg SDV IVP (08:34)
[2024-06-16 10:00] VITALS: PULSE 99; RESP 16; O2SAT 97
[2024-06-16 10:45] LABS: Glucose Point of Care 140 mg/dL (70-110)
[2024-06-16 12:00] VITALS: BP 139/83; PULSE 100; RESP 18; TEMP 36.9; O2SAT 95
--- NOTE | 2024-06-16 12:21 | PM.DCS ---
Discharge Providers Date of Admission: 06/09/24 14:21 Date of Discharge: June 16, 2024 Attending Provider at Admission: Anna Henry MD Attending Provider at Discharge: Georgina Guerrero MD Primary Care Provider: ZANE Tan Diagnoses at Discharge Discharge Diagnosis (1) Small bowel obstruction: Status: Acute Reason for Visit Reason for Visit: Abd pain, n,v, no bm 1 wk Brief History: Zelda Hernandez is a 73 year old female who presented with chief complaint nausea vomiting abdominal pain which she is endorsing started roughly 48 hours ago, her last bowel movement was a 7 days ago, in the ER she has been diagnosed with high-grade obstruction closed-loop, general surgery consulted. Patient has received IV fluids. I have requested Zosyn. Lactic acid unremarkable Patient is stating that she never had screening colonoscopy, at the time of evaluation she has an NG tube to low intermittent suction draining bile No active abdominal pain, family at the bedside She is hemodynamically stable Hospital Course Hospital Course She was consulted by GI and the plan initially was to do conservative treatment with NG tube decompression for 24 to 48 hours and if no improvement Gastrografin trial. There was no significant advancement of contrast from the stomach 6 hours after administration and patient was distended. As per GI findings were consistent with possibility of high-grade obstruction hence was proceeded with surgery. She had exploratory laparotomy with lysis of adhesions, had she did not pass gas or bowel movement postop day 3 and hence manual disimpaction done and laxatives given. Since then she has been able to clear her bowels. She has been confused and agitated during her hospital stay postoperatively and was given temazepam, Ativan, Seroquel for management of delirium. She also pulled out her NG tube overnight due to confusion but since NG tube drainage was less than 150 mL in 24 hours. Plan was to discontinue NG tube and start her on feeds. She tolerated liquids well a day before discharge and has been tolerating soft diet today on discharge. She remains pain-free, doing well, feeling better, no new complaints hence will discharge home to follow-up with GI as an outpatient clinic. Physical Exam Narrative: She is alert awake oriented x 3, not in acute distress Chest clear to auscultation bilaterally Cardiovascular normal heart sounds abdomen soft nontender nondistended normal bowel sounds, dressing present Extremities no edema bilateral lower extremities Urinary Catheter Management: [place]: Cath Placed During This Visit: yes Reason for Continuing Indwelling Catheter: Other Urinary Catheter Date of Insertion: 06/09/24 Urinary Catheter Time of Insertion: 14:24 Discharge Data Studies Completed and Pending Completed Studies During Hospitalization Category Date Time Status CT abdomen pelvis w con* [id number] Stat Cat Scan 06/09/24 10:26 Completed FL small bowel FT gastro [id number] Routine Exams 06/10/24 14:18 Completed XR abdomen 1V* [id number] Routine Exams 06/10/24 06:22 Completed XR abdomen 1V* [id number] Routine Exams 06/14/24 13:38 Completed XR abdomen 1V* [id number] Stat Exams 06/10/24 17:31 Completed XR acute abdomen series [id number] Stat Exams 06/09/24 08:36 Completed XR chest 1V portable [id number] Stat Exams 06/09/24 12:22 Completed Radiology Impressions Chest/Abdomen X-ray 06/09/24 08:36 Impression: Atherosclerosis. Clinical Data: abdominal pain Impression: 1. Dilated central small bowel loops which may be an acute bowel obstruction. 2. Large amount of fecal material throughout the colon. Abdomen/Pelvis CT 06/09/24 10:26 IMPRESSION: 1. High-grade small bowel obstruction. Focal high-grade stenosis noted in the mid abdomen with dilated small bowel on each side of the stenotic bowel. Consider closed-loop obstruction. 2. No free air at this point. Patient is at risk for perforation due to the extensive small bowel dilatation. No ischemia. 3. Small amount of free fluid in the pelvis. 4. Moderate atherosclerosis aorta and mesenteric arteries. Notified Jody Lara MD at 06/09/2024 11:26 AM. Chest X-Ray 06/09/24 12:22 IMPRESSION: Enteric tube tip and side port overlie the stomach. Small Bowel X-Ray 06/10/24 14:18 IMPRESSION: 1. Enteric tube is seen with the tip in the body of the stomach. 2. Contrast seen within stomach and proximal small bowel. Dilated proximal small bowel loops with large amount of fecal matter seen within the colon. Findings may represent an early small bowel obstruction versus small bowel obstruction secondary to fecal impaction. Radiographic surveillance is recommended to document resolution. Abdomen X-Ray 06/14/24 13:38 IMPRESSION: Postoperatively there is not current evidence of bowel obstruction or obvious free air. Laboratory Results WBC 8.25 10^3/uL (3.29-11.43) 06/16/24 04:30 RBC 3.73 10^6/uL (3.85-5.65) L 06/16/24 04:30 Hgb 11.50 g/dL (11.27-16.99) 06/16/24 04:30 Hct 35.6 % (36-47) L 06/16/24 04:30 MCV 95.4 fl (85-98) 06/16/24 04:30 MCH 30.8 pg (27-33) 06/16/24 04:30 MCHC 32.3 g/dL (30-55) 06/16/24 04:30 RDW 12.6 % (12.1-15.1) 06/16/24 04:30 Plt Count 336 10^3/cmm (157-399) 06/16/24 04:30 MPV 9.9 fL (7.4-10.4) 06/16/24 04:30 Neut % (Auto) 49.1 % 06/16/24 04:30 Lymph % (Auto) 26.4 % 06/16/24 04:30 Bradley % (Auto) 14.9 % 06/16/24 04:30 Eos % (Auto) 6.2 % 06/16/24 04:30 Baso % (Auto) 1.3 % 06/16/24 04:30 Neut # (Auto) 4.05 10^3/uL (1.8-7.7) 06/16/24 04:30 Lymph # (Auto) 2.2 10^3/uL (0.8-4.8) 06/16/24 04:30 Bradley # (Auto) 1.2 10^3/uL (0.2-0.9) H 06/16/24 04:30 Eos # (Auto) 0.5 10^3/uL (0.0-0.8) 06/16/24 04:30 Baso # (Auto) 0.1 10^3/uL (0.0-0.1) 06/16/24 04:30 Nucleated RBC % (auto) 0 % 06/16/24 04:30 Nucleated RBCs # 0.0 /100WBC 06/16/24 04:30 Sodium 145 mmol/L (136-145) 06/16/24 04:30 Potassium 4.1 mmol/L (3.5-5.1) 06/16/24 04:30 Chloride 113 mmol/L (98-107) H 06/16/24 04:30 Carbon Dioxide 20 mmol/L (22-29) L 06/16/24 04:30 Anion Gap 16.1 (5-19) 06/16/24 04:30 BUN 9 mg/dL (8-23) 06/16/24 04:30 Creatinine 0.6 mg/dL (0.5-0.9) 06/16/24 04:30 GFR Calculation Not Reportable 06/16/24 04:30 Glucose 118 mg/dL (65-115) H 06/16/24 04:30 POC Glucose 140 mg/dL (70-110) H 06/16/24 10:35 Calculated Osmolality 300 mOsm/kg (285-295) H 06/16/24 04:30 Lactic Acid 1.0 mmol/L (0.5-2.2) 06/10/24 05:08 Lactate 1.1 mmol/L (0.5-2.2) 06/11/24 05:10 Calcium 8.8 mg/dL (8.5-10.5) 06/16/24 04:30 Phosphorus 3.4 mg/dL (2.5-4.5) 06/16/24 04:30 Magnesium 2.0 mg/dL (1.7-2.3) 06/16/24 04:30 Total Bilirubin 0.3 mg/dL (0.15-1.2) 06/13/24 03:12 AST 13 U/L (0-32) 06/13/24 03:12 ALT 8 U/L (0-33) 06/13/24 03:12 Alkaline Phosphatase 74 U/L (35-105) 06/13/24 03:12 C-Reactive Protein 168.0 mg/L (0.0-4.9) H 06/12/24 02:36 Total Protein 5.2 g/dL (6.6-8.7) L 06/13/24 03:12 Albumin 2.9 g/dL (3.5-5.2) L 06/13/24 03:12 Globulin 2.3 g/dL (1.3-4.6) 06/13/24 03:12 Lipase 26 U/L (13-60) 06/09/24 09:09 Urine Color Yellow (Yellow) 06/09/24 10:15 Urine Appearance Clear (CLEAR) 06/09/24 10:15 Urine pH 6 (5-7) 06/09/24 10:15 Ur Specific Orange 1.015 (1.005-1.030) 06/09/24 10:15 Urine Protein Neg (Negative) 06/09/24 10:15 Urine Glucose (UA) Norm (Normal) 06/09/24 10:15 Urine Ketones Negative (Negative) 06/09/24 10:15 Urine Blood Neg (Negative) 06/09/24 10:15 Urine Nitrate Negative (Negative) 06/09/24 10:15 Urine Bilirubin Neg (Negative) 06/09/24 10:15 Urine Urobilinogen Norm mg/dL (Negative) 06/09/24 10:15 Ur Leukocyte Esterase Negative (Negative) 06/09/24 10:15 Urine RBC None /hpf (0-2) 06/09/24 10:15 Urine WBC 0-4 /hpf (0-5) H 06/09/24 10:15 Ur Squamous Epith Cells 0-4 /hpf (0-5) H 06/09/24 10:15 Ur Transition Epith Cell 5-10 /hpf 06/09/24 10:15 Amorphous Sediment Not Reportable 06/09/24 10:15 Urine Bacteria None /hpf (NONE) 06/09/24 10:15 Hyaline Casts 15-25 /lpf H 06/09/24 10:15 Urine Mucus Trace /hpf 06/09/24 10:15 Vitals Last Vital Signs Temp 98.4 F 06/16/24 12:00 Pulse 100 06/16/24 12:00 Resp 18 06/16/24 12:00 BP 139/83 06/16/24 12:00 Pulse Ox 95 06/16/24 12:00 O2 Del Method Room Air 06/16/24 12:00 O2 Flow Rate 3.5 06/11/24 12:45 Discharge Plan Discharge Patient Disposition: Home Condition: Stable Prescriptions: New polyethylene glycol 3350 17 gram Powder In Packet 17 g PO BID Qty: 14 0RF Continued triamcinolone acetonide [Nasacort] 55 mcg aerosol,spray 1 spray intranasal DAILY PRN (Reason: allergies) trandolapril 4 mg tablet 4 mg PO DAILY diltiazem HCl 360 mg capsule,extended release 24 hr 360 mg PO DAILY amlodipine 5 mg tablet 5 mg PO DAILY simvastatin 40 mg tablet 40 mg PO DAILY alprazolam 0.5 mg tablet 0.5 mg PO DAILY baclofen 10 mg tablet 10 mg PO BID PRN (Reason: Pain) Zyrtec 10 mg Capsule 10 mg PO DAILY PRN (Reason: allergies) paroxetine HCl 10 mg tablet 10 mg PO DAILY alendronate 70 mg tablet See Rx Instructions .ROUTE .COMPLEX Rx Instructions: TAKE ONE TABLET BY MOUTH ONCE a WEEK. TAKE with 6-8 ounces of plain water, AT least 30 minutes BEFORE first food, beverage, OR medication of THE DAY. on Thursday hydrocodone-acetaminophen 5-325 mg tablet 1 tab PO BID PRN (Reason: Pain) 7 Days Qty: 14 0RF Discontinued ibuprofen 800 mg tablet 800 mg PO TID PRN (Reason: Pain) nitrofurantoin monohyd/m-cryst 100 mg capsule 100 mg PO BID Discharge Orders: Discharge Order (Routine); Ordered 06/16/24 Ordered By: Georgina Guerrero Referrals: Oliver Wilder MD [Physician] - Carter,ZANE Sultana [Primary Care Provider] - Discharge Diet: Advance as tolerated Discharge Activity: Increase activity as tolerated Patient Instructions: Acute Wound Care (DC), Opioid Safety, Post Anesthesia Care, Pain Management Discharge Attestations Time Spent in Discharge Care*: less than 30 min Quality Metrics Clinical Quality Measures [ No reported AMI, CVA or VTE this stay] Coding Level of Care Code Acute Code for Chg Fwd Diagnoses Small bowel obstruction K56.609 Time Spent (min) 20
== END 2024-06-16 13:55 | disposition home health service (06) | DRG 336 ==
LOC: ER 11:51 → MEDSURG 14:21
PROVIDERS: Family Medicine; Surgery; Admitting Provider Internal Medicine; Emergency Provider Emergency Medicine; PCP Nurse Practitioner Family; Visit Provider Internal Medicine
PROC: (CPT 49000; principal; 2024-06-11 11:05)
DX: K56.52 Intestinal adhesions [bands] with complete obstruction (principal); F05 Delirium due to known physiological condition; I10 Essential (primary) hypertension; E11.9 Type 2 diabetes mellitus without complications; M54.16 Radiculopathy, lumbar region; E87.6 Hypokalemia; Z82.49 Family history of ischemic heart disease and other diseases of the circulatory system; Z88.8 Allergy status to other drugs, medicaments and biological substances; Z79.899 Other long term (current) drug therapy
CPT/HCPCS: 36415; 36416; 36569; 51702; 71045; 74018; 74022; 74177; 74250; 80048; 80053; 81001; 82962; 83605; 83690; 83735; 84100; 85025; 86140; 87040; 96365; 96372; 96375; 96376; 97116; 97161; 97530; 99285; C1751; J0131; J0330; J0360; J1100; J1630; J1650; J2060; J2250; J2270; J2371; J2405; J2470; J2543; J2704; J3010; J3480; J3490; J7030; J7042; P9045

== ENCOUNTER 2024-06-23 12:39 | Inpatient (IN) | payer MEDICARE, SELFPAY ==
[2024-06-23] VITALS (19 sets, daily range): BP systolic 94–157; BP diastolic 54–88; PULSE 68–89; RESP 14–28; TEMP 37–37.4; O2SAT 90–97; BMI 20.8; BMI 24.3
[2024-06-23 13:29] LABS: Basophils # 0.1 10^3/uL (0.0-0.1); Basophils % 0.9 %; Eosinophils # 0.3 10^3/uL (0.0-0.8); Eosinophils % 1.7 %; Hematocrit 32.5 % (36-47); Lymphocytes % 13.6 %; Mean Corpuscular HGB Conc 32.3 g/dL (30-55); Mean Corpuscular Hemoglobin 30.9 pg (27-33); Mean Corpuscular Volume 95.6 fl (85-98); Mean Platelet Volume 10.2 fL (7.4-10.4); Monocytes # 0.9 10^3/uL (0.2-0.9); Neutrophils # 11.26 10^3/uL (1.8-7.7); Neutrophils % 77.5 %; Nucleated Red Blood Cells % 0 %; Platelet Count 450 10^3/cmm (157-399); Red Cell Distribution Width 13.2 % (12.1-15.1); White Blood Count 14.54 10^3/uL (3.29-11.43)
[2024-06-23 13:48] LABS: Alanine Aminotransferase 11 U/L (0-33); Albumin Level 3.5 g/dL (3.5-5.2); Alkaline Phosphatase 115 U/L (35-105); Anion Gap 13.8 (5-19); Aspartate Amino Transferase 13 U/L (0-32); Blood Urea Nitrogen 13 mg/dL (8-23); Calcium 9.4 mg/dL (8.5-10.5); Carbon Dioxide 24 mmol/L (22-29); Chloride 105 mmol/L (98-107); Creatinine Clr Calc Pharmacy 48.6737; Globulin 2.6 g/dL (1.3-4.6); Glucose 157 mg/dL (65-115); Lipase 19 U/L (13-60); Osmolality Calculated 291 mOsm/kg (285-295); Potassium 3.8 mmol/L (3.5-5.1); Sodium 139 mmol/L (136-145); Total Bilirubin 0.4 mg/dL (0.15-1.2); Total Protein 6.1 g/dL (6.6-8.7)
--- NOTE | 2024-06-23 15:39 | ED_ITS ---
HPI - Abdominal Pain 2 General: Chief Complaint: Abdominal Pain Stated Complaint: bowel problems Time Seen by Provider: 06/23/24 15:34 History of Present Illness: 73-year-old female who presents to the e mergency room with complaint of abdominal pain Associated Symptoms: Reports constipation and nausea; Denies chills, dysuria and fever(s) Related Data Home Medications Medication Instructions Recorded Confirmed triamcinolone acetonide 55 mcg 1 spray intranasal DAILY PRN 04/05/21 06/24/24 nasal spray aerosol (Nasacort) allergies alprazolam 0.5 mg tablet 0.5 mg PO DAILY 03/07/22 06/24/24 amlodipine 5 mg tablet 5 mg PO DAILY 03/07/22 06/24/24 baclofen 10 mg tablet 10 mg PO BID PRN Pain 03/07/22 06/24/24 cetirizine 10 mg capsule (Zyrtec) 10 mg PO DAILY PRN allergies 03/07/22 06/24/24 diltiazem HCl 360 mg capsule,24 360 mg PO DAILY 03/07/22 06/24/24 hr,extended release simvastatin 40 mg tablet 40 mg PO DAILY 03/07/22 06/24/24 trandolapril 4 mg tablet 4 mg PO DAILY 03/07/22 06/24/24 alendronate 70 mg tablet See Rx Instructions .Route .COMPLEX 06/09/24 06/24/24 paroxetine HCl 10 mg tablet 10 mg PO DAILY 06/09/24 06/24/24 ibuprofen 800 mg tablet 800 mg PO TID 06/23/24 06/24/24 Previous Rx's Medication Instructions Recorded polyethylene glycol 3350 17 gram 17 g PO BID #14 ea 06/16/24 oral powder packet Allergies Allergy/AdvReac Type Severity Reaction Status Date / Time gabapentin Allergy Unknown Unknown Verified 02/18/24 10:41 Review of Systems 2 Const: Denies: fever(s) or chills Card: Denies: chest pain Resp: Denies: dyspnea GI: Reports: abdominal pain, nausea and constipation : Denies: dysuria, urinary frequency or urinary urgency Musc: Denies: neck pain or back pain Skin/Breast: Denies: rash PFSH ED 2 PFSH: Medical History (Updated 06/24/24 @ 15:47 by Deep Painter DO) Lumbar disc disease with radiculopathy Palpitations Hypertension Diabetes Surgical History (Updated 06/23/24 @ 19:05 by Trae Quinteros MD) H/O exploratory laparotomy Family History Father Hypertension Heart attack Social History Smoking and tobacco/nicotine status: never used tobacco/nicotine Alcohol intake: never Substance/Drug Use: never Physical Exam 2 Const: COMMON NORMALS: no acute distress GENERAL APPEARANCE: cooperative and comfortable ORIENTATION/CONSCIOUSNESS: Yes awake, Yes oriented to person, Yes oriented to place and Yes oriented to time HENMT: COMMON NORMALS: normocephalic, atraumatic and hearing grossly normal bilaterally HEAD & SCALP: normocephalic and atraumatic Resp: COMMON NORMALS: normal respiratory effort, No retractions, No use of accessory muscles and clear to auscultation bilaterally AUSCULTATION: clear to auscultation bilaterally Cardio: COMMON NORMALS: regular rate, regular rhythm and No murmurs present (Cardio) RATE: regular rate RHYTHM: regular rhythm GI: COMMON NORMALS: No hepatosplenomegaly present AUSCULTATION: Yes normoactive bowel sounds PALPATION: Yes Tenderness to palpation present (GI), No Guarding due to palpation present (GI) and Yes No hepatosplenomegaly present Extremity: COMMON NORMALS: normal to inspection, capillary refill normal, no clubbing, cyanosis or edema, no calf tenderness and no pedal edema Neuro: SENSORIUM/ORIENTATION: Yes oriented to person, Yes oriented to place and Yes oriented to time Skin: COMMON NORMALS: no rashes or lesions noted GENERAL SKIN EXAM: no rashes or lesions noted Course 2 Vital Signs: Vital signs: Vital Signs Temperature 97.5 F L 06/24/24 08:00 Pulse Rate 86 06/24/24 14:14 Respiratory Rate 17 06/24/24 13:00 Blood Pressure 109/59 06/24/24 13:00 Pulse Oximetry 95 06/24/24 13:00 Oxygen Delivery Me thod Nasal Cannula 06/24/24 08:30 Oxygen Flow Rate 2 06/24/24 08:30 MDM - Abdominal Pain Medical Decision Making CT shows concern for recurrence of bowel obstruction. There is also an incidental finding of pulmonary embolism right lower lobe on the CT of the abdomen . CTA of the chest done and patient was noted to have acute bilateral PEs with some mild heart strain no pulmonary infarct. Patient will be admitted to have discussed with surgery as well as with hospitalist. Lab Data 06/24/24 13:53 06/24/24 04:07 Labs/Radiology: Radiology Impressions Abdomen/Pelvis CT 06/23/24 15:41 IMPRESSION: 1. Findings concerning for small bowel obstruction with change in caliber in the lower abdomen. Given recent surgery, there may be a component of postoperative ileus. Consider surgical evaluation and correlation with exam utilizing oral contrast as clinically warranted. 2. Right lower lobe PE. Correlation with CT angiography is recommended. 3. Osteonecrosis of both femoral heads. Consider outpatient orthopedic evaluation. The findings were verbally communicated by telephone with Dr. PAINTER at 5:59 PM CDT on 06/23/2024. Chest CTA 06/23/24 18:01 IMPRESSION: 1. Acute bilateral segmental/subsegmental PE. There are findings suggestive of right heart strain. No evidence of pulmonary infarct. ADDENDUM: 06/23/24 1900 The findings were verbally communicated by telephone with Dr. Banks at 6:57 PM CDT on 06/23/2024. Venous Duplex 06/23/24 18:50 IMPRESSION: 1. No sonographic evidence of deep venous thrombosis in either lower extremity. Laboratory Results WBC 14.54 10^3/uL (3.29-11.43) H 06/23/24 13:05 RBC 3.40 10^6/uL (3.85-5.65) L 06/23/24 13:05 Hgb 10.50 g/dL (11.27-16.99) L 06/23/24 13:05 Hct 32.5 % (36-47) L 06/23/24 13:05 MCV 95.6 fl (85-98) 06/23/24 13:05 MCH 30.9 pg (27-33) 06/23/24 13:05 MCHC 32.3 g/dL (30-55) 06/23/24 13:05 RDW 13.2 % (12.1-15.1) 06/23/24 13:05 Plt Count 439 10^3/cmm (157-399) H 06/23/24 16:32 MPV 10.2 fL (7.4-10.4) 06/23/24 13:05 Neut % (Auto) 77.5 % 06/23/24 13:05 Lymph % (Auto) 13.6 % 06/23/24 13:05 Cassia % (Auto) 6.0 % 06/23/24 13:05 Eos % (Auto) 1.7 % 06/23/24 13:05 Baso % (Auto) 0.9 % 06/23/24 13:05 Neut # (Auto) 11.26 10^3/uL (1.8-7.7) H 06/23/24 13:05 Lymph # (Auto) 2.0 10^3/uL (0.8-4.8) 06/23/24 13:05 Cassia # (Auto) 0.9 10^3/uL (0.2-0.9) 06/23/24 13:05 Eos # (Auto) 0.3 10^3/uL (0.0-0.8) 06/23/24 13:05 Baso # (Auto) 0.1 10^3/uL (0.0-0.1) 06/23/24 13:05 Nucleated RBC % (auto) 0 % 06/23/24 13:05 Nucleated RBCs # 0.0 /100WBC 06/23/24 13:05 PT 15.00 SECONDS (12.1-14.9) H 06/23/24 16:32 INR 1.14 (0.8-1.2) 06/23/24 16:32 APTT 30.9 SECONDS (23.9-36.7) 06/23/24 16:32 Sodium 139 mmol/L (136-145) 06/23/24 13:05 Potassium 3.8 mmol/L (3.5-5.1) 06/23/24 13:05 Chloride 105 mmol/L (98-107) 06/23/24 13:05 Carbon Dioxide 24 mmol/L (22-29) 06/23/24 13:05 Anion Gap 13.8 (5-19) 06/23/24 13:05 BUN 13 mg/dL (8-23) 06/23/24 13:05 Creatinine 0.8 mg/dL (0.5-0.9) 06/23/24 13:05 GFR Calculation Not Reportable 06/23/24 13:05 Glucose 157 mg/dL (65-115) H 06/23/24 13:05 Calculated Osmolality 291 mOsm/kg (285-295) 06/23/24 13:05 Lactic Acid 0.9 mmol/L (0.5-2.2) 06/23/24 16:32 Calcium 9.4 mg/dL (8.5-10.5) 06/23/24 13:05 Total Bilirubin 0.4 mg/dL (0.15-1.2) 06/23/24 13:05 AST 13 U/L (0-32) 06/23/24 13:05 ALT 11 U/L (0-33) 06/23/24 13:05 Alkaline Phosphatase 115 U/L (35-105) H 06/23/24 13:05 Troponin T Baseline 48 ng/L (0-10) H 06/23/24 16:32 C-Reactive Protein 93.4 mg/L (0.0-4.9) H 06/23/24 16:32 NT-Pro-B Natriuret Pep 1916 pg/mL (0-450) H 06/23/24 16:32 Total Protein 6.1 g/dL (6.6-8.7) L 06/23/24 13:05 Albumin 3.5 g/dL (3.5-5.2) 06/23/24 13:05 Globulin 2.6 g/dL (1.3-4.6) 06/23/24 13:05 Lipase 19 U/L (13-60) 06/23/24 13:05 Procalcitonin 3.44 ng/mL (0-0.5) H 06/23/24 16:32 All radiology interpretation(s) finalized by discharge (CTA chest was pending at the time of admission was written hospitalist aware report called to Dr. Banks) Discharge Plan Discharge Patient Disposition: Admitted As Inpatient Admit Provider: Damian Chester Clinical Impression: Bowel obstruction, Bilateral pulmonary embolism Condition: Stable Coding Level of Care Code ED Grain Loader for Chg Vicenta
--- NOTE | 2024-06-23 15:41 | CTR_ITS ---
PROCEDURE INFORMATION: Exam: CT Abdomen And Pelvis With Contrast Exam date and time: 06/23/2024 5:15 PM Age: 73 years old Clinical indication: Abdominal pain; Additional info: Abd pain TECHNIQUE: Imaging protocol: Computed tomography of the abdomen and pelvis with contrast. Radiation optimization: All CT scans at this facility use at least one of these dose optimization techniques: automated exposure control; mA and/or kV adjustment per patient size (includes targeted exams where dose is matched to clinical indication); or iterative reconstruction. Contrast material: OMNI 350; Contrast volume: 100 ml; Contrast route: INTRAVENOUS (IV); COMPARISON: CT abdomen pelvis w con* [id number] 06/09/2024 10:59 AM RADIATION DOSE METRICS: Total DLP (mGy-cm): 409 FINDINGS: Lungs: Right lower lobe segmental/subsegmental PE (images 2-4 of series 3). Diaphragm: No evidence of diaphragmatic defect. Liver: Hepatic steatosis. No evidence of focal hepatic lesion. Gallbladder and biliary ducts: Status post cholecystectomy. Mild central intrahepatic biliary dilatation. There is mild extrahepatic biliary dilatation, frequently seen post cholecystectomy. CBD measures up to 9 mm. No evidence of intraductal stone. Pancreas: Unremarkable. Spleen: Unremarkable. Adrenal glands: Unremarkable. Kidneys and ureters: There are simple appearing renal cysts for which dedicated imaging follow-up is not required. Otherwise no evidence of renal parenchymal abnormality. No hydronephrosis or ureteral stone. Stomach and bowel: Multiple loops of dilated small bowel measuring up to 3.5 cm with nondistention of the distal ileum and relative change in caliber in the lower abdomen (images 46-49 of series 3). Colonic diverticulosis without evidence of acute diverticulitis Appendix: Normal appendix. Intraperitoneal space: No evidence of free air or fluid collection. Vasculature: Extensive aortobiiliac atherosclerosis without aneurysmal dilatation or dissection. The celiac trunk, SMA and BONITA are grossly patent. Moderate narrowing of the celiac trunk secondary to atherosclerotic plaque. Consider follow-up outpatient vascular evaluatiion.No evidence of IVC thrombus. The portal vein, SMV and splenic veins are grossly patent. Lymph nodes: No adenopathy. Urinary bladder: Grossly unremarkable. Reproductive: Grossly unremarkable. Bones/joints: No evidence of acute fracture or aggressive osseous lesion. Levoscoliosis of the lumbar spine centered at L3. Moderate-severe multilevel spondylosis of the lumbar spine with facet arthrosis, osteophytosis and endplate degeneration. Chronic L3 vertebral body compression fracture with moderate height loss. Severe left-sided foraminal stenosis at L3-L4. Consider correlation with follow-up outpatient MRI to evaluate for neural impingement. 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 Osteonecrosis of both femoral heads noted. Bony demineralization compatible with osteopenia or osteoporosis. Soft tissues: No evidence of fluid collection or hematoma in the superficial soft tissues. Postsurgical changes of the ventral abdominal wall with midline rico in place. CT/CT abdomen pelvis w con* [id number] IMPRESSION: 1. Findings concerning for small bowel obstruction with change in caliber in the lower abdomen. Given recent surgery, there may be a component of postoperative ileus. Consider surgical evaluation and correlation with exam utilizing oral contrast as clinically warranted. 2. Right lower lobe PE. Correlation with CT angiography is recommended. 3. Osteonecrosis of both femoral heads. Consider outpatient orthopedic evaluation. The findings were verbally communicated by telephone with Dr. ROWE at 5:59 PM CDT on 06/23/2024.
[2024-06-23 16:23] LABS: Lactic Sepsis W/Reflex 1.2 mmol/L (0.5-2.2)
[2024-06-23] MEDS: iohexol 350 mg/mL 500 mL Btl (per mL) IV ×2 (17:20→18:38)
--- NOTE | 2024-06-23 18:01 | CTR_ITS ---
PROCEDURE INFORMATION: Exam: CTA Chest With Contrast Exam date and time: 06/23/2024 6:27 PM Age: 73 years old Clinical indication: Abnormal findings; Abnormal radiologic exam of lung or chest; Additional info: Pe TECHNIQUE: Imaging protocol: Computed tomographic angiography of the chest with contrast. Exam focused on the arteries. 3D rendering (Not supervised by radiologist): MIP and/or 3D reconstructed images were created by the technologist. Radiation optimization: All CT scans at this facility use at least one of these dose optimization techniques: automated exposure control; mA and/or kV adjustment per patient size (includes targeted exams where dose is matched to clinical indication); or iterative reconstruction. Contrast material: OMNI 350; Contrast volume: 50 ml; Contrast route: INTRAVENOUS (IV); COMPARISON: CR XR chest 1V portable [id number] 06/09/2024 12:29 PM RADIATION DOSE METRICS: Total DLP (mGy-cm): 285 FINDINGS: Pulmonary arteries: Acute right lower lobe segmental/subsegmental PE involving the posterior basal and superior segments. Acute right upper and middle lobe segmental PE. Acute left upper lobe segmental/subsegmental PE involving the anterior segment. Aorta: Atherosclerosis without evidence of aneurysmal dilatation or dissection of the thoracic aorta. Thyroid: Grossly unremarkable. Lungs: No focal consolidation. No evidence of pneumonia. Pleural spaces: No evidence of pleural effusion. No pneumothorax. Heart: Borderline cardiomegaly. No pericardial effusion. Cardiac RV:LV ratio measures approximately 1.25. There is flattening of the interventricular septum. Mediastinal space: No evidence of mediastinal mass, fluid collection or hematoma. Lymph nodes: No mediastinal or hilar adenopathy. Bones/joints: No evidence of acute fracture or aggressive osseous lesion. Soft tissues: No evidence of fluid collection or hematoma in the superficial soft tissues. Other findings: Please see separate report of concurrent CT of the abdomen and pelvis for findings below the diaphragm. CT/CT angio chest PE protcl [id number] IMPRESSION: 1. Acute bilateral segmental/subsegmental PE. There are findings suggestive of right heart strain. No evidence of pulmonary infarct.
--- NOTE | 2024-06-23 18:50 | USR_ITS ---
PROCEDURE INFORMATION: Exam: US Duplex Lower Extremity Veins, Bilateral Exam date and time: 06/23/2024 7:38 PM Age: 73 years old Clinical indication: Patient HX: Pulmonary emboli S/P bowel surgery 06/11/2024; Additional info: Pe TECHNIQUE: Imaging protocol: Real-time duplex ultrasound of the bilateral extremities with 2-D sheridan scale, color Doppler flow and spectral waveform analysis including responses to compression and other maneuvers (when performed) with image documentation. Complete exam focused on the lower extremity veins. COMPARISON: CT abdomen pelvis w con* [id number] 06/23/2024 5:15 PM FINDINGS: Right deep veins: The common femoral, femoral, proximal profunda femoral and popliteal veins are patent without evidence of thrombus and demonstrate normal waveforms. Visualized deep calf veins are patent. Left deep veins: The common femoral, femoral, proximal profunda femoral and popliteal veins are patent without evidence of thrombus and demonstrate normal waveforms. Visualized deep calf veins are patent. Superficial veins: Bilateral saphenofemoral junctions are patent without thrombus. No evidence of thrombophlebitis. Soft tissues: No evidence of fluid collection. US/CV venous duplex [facility] [id number] IMPRESSION: 1. No sonographic evidence of deep venous thrombosis in either lower extremity.
--- NOTE | 2024-06-23 18:50 | USCV_ITS ---
Zelda Hernandez Age: 73 Gender: F : 1950 Exam Date: 06/23/2024 20:00 Ordering Phys: Trae Quinteros MD Technologist: HALINA [place] [facility] [place]: pulmonary emboli s/p bowel surgery 06/11/2024 BP: 128 / 72 HR: 76 Rhythm: Sinus Technical Quality: Adequate MEASUREMENTS (Male / Female) Normal Values 2D ECHO LV Diastolic Diameter PLAX 2.9 cm 4.2 - 5.9 / 3.9 - 5.3 cm IVS Diastolic Thickness 1.5 cm 0.6 - 1.0 / 0.6 - 0.9 cm IVS Systolic Thickness 1.8 cm LVPW Diastolic Thickness 1.2 cm 0.6 - 1.0 / 0.6 - 0.9 cm LVPW Systolic Thickness 1.0 cm LVOT Diameter 1.8 cm LV Ejection Fraction 2D Teich 55.4 % LV Ejection Fraction MOD 4C 57.9 % LV Ejection Fraction MOD 2C 59.0 % LV Ejection Fraction 2C AL 61.0 % LA Diameter 2.4 cm Aorta at Sinotubular Diameter 2.8 cm IVC Diameter 1.3 cm M-MODE LA Ao Ratio MM 1.1 AV Cusp Separation MM 1.7 cm DOPPLER AV Peak Velocity 191.0 cm/s LVOT Peak Velocity 139.0 cm/s AV Area Cont Eq vti 1.8 cm squared AV Area Cont Eq pk 1.8 cm squared MV Peak Velocity 104.0 cm/s MV Area PHT 2.6 cm squared Mitral E to A Ratio 0.7 TV Peak Velocity 334.0 cm/s TR Peak Velocity 336.0 cm/s TR Peak Gradient 45.2 mmHg TV Peak E Velocity 57.0 cm/s Right Atrial Pressure 10.0 mmHg Pulmonary Artery Systolic Pressu 55.2 mmHg PV Peak Velocity 130.0 cm/s FINDINGS Left Ventricle Normal left ventricular size and systolic function, EF 58%.no regional wall motion abnormalities. Grade I/IV diastolic dysfunction (abnormal relaxation filling pattern), normal to mildly elevated filling pressures. Right Ventricle Normal RV size and ejection fraction Right Atrium The right atrium is normal in size. Left Atrium The left atrium is normal in size. Mitral Valve Moderate mitral annular calcification. Mild mitral valve regurgitation. Aortic Valve Thickened aortic valve. Trace aortic valve regurgitation. Features of aortic valve sclerosis Tricuspid Valve Moderate tricuspid valve regurgitation. Estimated pulmonary artery peak systolic pressure 55 mm of medical Pulmonic Valve No gross abnormalities noted Pericardium No pericardial effusion. Aorta Normal ascending aorta dimension. IVC Normal inferior vena cava. CONCLUSIONS Normal left ventricular size and systolic function, EF 58%.no regional wall motion abnormalities. Grade I/IV diastolic dysfunction (abnormal relaxation filling pattern), normal to mildly elevated filling pressures. Normal RV size and ejection fraction. Moderate pulmonary hypertension with an estimated pulmonary artery peak systolic pressure 55 mmHg Thickened aortic valve. Trace aortic valve regurgitation. Features of aortic valve sclerosis. Moderate mitral annular calcification. Mild mitral valve regurgitation. Estimated pulmonary artery peak systolic pressure 55 mm of Hg. There is no pericardial effusion. There are no intracardiac masses. No evidence of any RV strain. No similar previous studies are available for comparison Dr Ap Cary MD [facility] (Electronically Signed) Final Date: 23 June 2024 22:43 S
--- NOTE | 2024-06-23 19:02 | P.HP_ITS ---
Providers/Chief Complaint 2 Primary Care Provider: ZANE Tan Chief Complaint: bowel problems History of Present Illness Zelda Hernandez is a 73 year old female With a past medical history of hypertension, recent history of exploratory laparotomy with lysis of adhesions, for high-grade bowel obstruction, she did have episodes of agitation confusion and delirium during the hospital stay. Currently she is alert oriented x 3, following all commands, she tells me that she has not had a bowel movement since Thursday, continues to have abdominal pain, abdominal distention, not passing gas from below, no nausea, no vomiting but does report decreased appetite, no chest pain, palpitations no shortness of breath, does have a cough but no hemoptysis, no calf pain, no calf swelling, she does report that she continues to be immobile even after surgery, she is very active, denies a history of PEs, denies a history of anemia, denies a cardiovascular history Review of Systems 2 Const: Denies: fever(s) Card: Denies: chest pain Resp: Denies: dyspnea GI: Reports: abdominal pain Neuro: Denies: headache(s) Medications/Allergies Home Medications Medication Instructions Recorded Confirmed Last Taken Type triamcinolone acetonide 55 mcg 1 spray intranasal DAILY PRN 04/05/21 06/09/24 Unknown History nasal spray aerosol (Nasacort) allergies alprazolam 0.5 mg tablet 0.5 mg PO DAILY 03/07/22 06/09/24 06/08/24 History amlodipine 5 mg tablet 5 mg PO DAILY 03/07/22 06/09/24 06/09/24 History baclofen 10 mg tablet 10 mg PO BID PRN Pain 03/07/22 06/09/24 Unknown History cetirizine 10 mg capsule (Zyrtec) 10 mg PO DAILY PRN allergies 03/07/22 06/09/24 03/07/22 History diltiazem HCl 360 mg capsule,24 360 mg PO DAILY 03/07/22 06/09/24 06/09/24 History hr,extended release simvastatin 40 mg tablet 40 mg PO DAILY 03/07/22 06/09/24 06/08/24 History trandolapril 4 mg tablet 4 mg PO DAILY 03/07/22 06/09/24 03/07/22 History alendronate 70 mg tablet See Rx Instructions .Route .COMPLEX 06/09/24 06/09/24 06/06/24 History paroxetine HCl 10 mg tablet 10 mg PO DAILY 06/09/24 06/09/24 06/08/24 History polyethylene glycol 3350 17 gram 17 g PO BID #14 ea 06/16/24 Unknown Rx oral powder packet ibuprofen 800 mg tablet 800 mg PO TID 06/23/24 Unknown History Allergies Allergy/AdvReac Type Severity Reaction Status Date / Time gabapentin Allergy Unknown Unknown Verified 02/18/24 10:41 PFSH Acute 2 PFSH: Medical History (Updated 06/23/24 @ 19:07 by Trae Quinteros MD) Lumbar disc disease with radiculopathy Palpitations Hypertension Diabetes Surgical History (Updated 06/23/24 @ 19:05 by Trae Quinteros MD) H/O exploratory laparotomy Family History Father Hypertension Heart attack Social History Smoking and tobacco/nicotine status: never used tobacco/nicotine Alcohol intake: never Substance/Drug Use: never Vitals/I&O/Wt Last Vital Signs Temp 98.6 F 06/23/24 12:44 Pulse 81 06/23/24 12:44 Resp 17 06/23/24 12:44 BP 94/54 06/23/24 12:44 Pulse Ox 96 06/23/24 12:44 O2 Del Method Room Air 06/23/24 12:44 Weight last 48 hrs Weight 51.71 kg Physical Exam 2 Const: COMMON NORMALS: no acute distress and patient oriented x3 HENMT: COMMON NORMALS: normocephalic HEAD & SCALP: normocephalic Eye: COMMON NORMALS: Equal, round and reactive pupils present and EOMs intact bilaterally Neck/C-Spine: COMMON NORMALS: no JVD Resp: COMMON NORMALS: normal respiratory effort, No retractions, No use of accessory muscles and clear to auscultation bilaterally AUSCULTATION: clear to auscultation bilaterally Cardio: COMMON NORMALS: no JVD, regular rate, regular rhythm, S1 normal heart sound present and S2 normal heart sound present RATE: regular rate RHYTHM: regular rhythm HEART SOUNDS: S1 normal heart sound present and S2 normal heart sound present GI: OTHER: Abdomen soft, scattered bowel sounds, no guarding, no rebound, rigidity, slightly distended, Extremity: COMMON NORMALS: no calf tenderness and no pedal edema Neuro: COMMON NORMALS: patient oriented x3, CN's II-XII intact bilaterally and moves all extremities Psych: COMMON NORMALS: mental status grossly normal Data 06/23/24 13:05 06/23/24 13:05 A&P Assessment and plan (1) Bilateral pulmonary embolism: (2) Bowel obstruction: Plan Bilateral pulmonary embolism with evidence of right heart strain CT/CT angio chest PE protcl [id number] IMPRESSION: 1. Acute bilateral segmental/subsegmental PE. There are findings suggestive of right heart strain. No evidence of pulmonary infarct. Plan ? Lactic acid, troponin series, BNP, venous ultrasound, cardiac echo ? Oxygen therapy ? Monitor in ICU ? Heparin drip small bowel obstruction CT/CT abdomen pelvis w con* [id number] IMPRESSION: 1. Findings concerning for small bowel obstruction with change in caliber in the lower abdomen. Given recent surgery, there may be a component of postoperative ileus. Consider surgical evaluation and correlation with exam utilizing oral contrast as clinically warranted. Plan ? Keep n.p.o. ? IV fluids ? Morphine for pain -Zofran for nausea ? General Surgery consulted Monitor for delirium, confusion, this was present during her last hospitalization ? CODE STATUS patient is full code ? Heparin drip for DVT prophylaxis Attestations 2 Medical Necessity Statement*: Patient requires hospitalization, inpatient, greater than 2 midnights, for bilateral pulm embolism, high-grade bowel obstruction, requires ICU admission Diagnoses Bilateral pulmonary embolism I26.99 Bowel obstruction K56.609
[2024-06-23 19:11] LABS: Platelet Count 439 10^3/cmm (157-399)
--- NOTE | 2024-06-23 19:17 | PC.NURSE ---
This nurse assumed care from Cherelle GANT at shift change.
--- NOTE | 2024-06-23 19:22 | ECG_ITS ---
[facility] Test Date: 2024-06-23 Pat Name: Zelda Hernandez Department: Room: [facility]07 Gender: Female [place]: : 1950 Requested By: Trae Quinteros Order Number: [id number] Vinh MD: Ap Cary M.D. Measurements Intervals [place] Rate: 83 P: 89 HI: 234 QRS: 56 QRSD: 85 T: 65 QT: 389 QTc: 458 Interpretive Statements SINUS RHYTHM WITH FIRST DEGREE AV BLOCK Compared to ECG 03/07/2022 18:49:57 First degree AV block now present Electronically Signed On 06-25-2024 20:46:46 CDT by Ap Cary M.D. [id number]
[2024-06-23] MEDS: heparin 5,000 unit/mL INJ 1 mL IVP (19:28)
--- NOTE | 2024-06-23 19:30 | PC.NURSE ---
Laboratory called this nurse regarding delay in baseline trop being resulted. Lab asked this nurse if physician wanted current blood (drawn at 1632 per lab) to be run as a baseline trop and draw a new 2 hour trop, or to draw a new baseline trop and get new 2 hour trop 2 hours from new draw. This nurse consulted Dr Banks, who told nurse to call lab back and inform them to run current blood sample (drawn at 1632) as the baseline trop and 2 hour trop. Nurse informed lab coordinator of physician instructions.
[2024-06-23 19:33] LABS: INR 1.14 (0.8-1.2)
[2024-06-23 19:34] LABS: Partial Thromboplastin Time 30.9 SECONDS (23.9-36.7)
[2024-06-23 19:37] LABS: Lactic Sepsis W/Reflex 0.9 mmol/L (0.5-2.2)
[2024-06-23] MEDS: heparin drip 25,000 UNIT/500 ML PREMIX 15.51 UNIT IV (19:38)
[2024-06-23 19:44] LABS: Troponin(5th) Baseline 48 ng/L (0-10)
[2024-06-23 19:47] LABS: NT Pro B Type Natriuretic Pept 1916 pg/mL (0-450); Procalcitonin 3.44 ng/mL (0-0.5)
[2024-06-23 19:58] LABS: C Reactive Protein 93.4 mg/L (0.0-4.9)
--- NOTE | 2024-06-23 20:49 | ECG_ITS ---
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 Measurements Intervals [place] Rate: 84 P: 78 OR: 221 QRS: 49 QRSD: 80 T: 55 QT: 397 QTc: 470 Interpretive Statements SINUS RHYTHM WITH FIRST DEGREE AV BLOCK Compared to ECG 06/23/2024 19:22:23 No significant changes Electronically Signed On 06-25-2024 21:09:00 CDT by Ap Cary M.D. [id number]
[2024-06-23 21:17] LABS: Bilirubin Urine Negative (Negative); Blood Urine Negative (Negative); Glucose Urine UA Negative (Normal); Ketones Urine Negative (Negative); Leukocyte Esterase Urine 1+ (Negative); Nitrate Urine Negative (Negative); Protein Urine Negative (Negative); Urine Appearance Clear (CLEAR); Urine Color Yellow (Yellow); Urobilinogen Urine 0.2 mg/dL (Negative); pH Urine 6.5 (5-7)
[2024-06-23 21:21] LABS: Add Urine Microscopic? YES; Bacteria Urine None Seen /hpf; Hyaline Casts Urine 4.11 /lpf; RBC Urine 51-100 /hpf (0-2); Squamous Epithelial Cell Urine 0-5 /hpf (0-5); WBC Urine 21-50 /hpf (0-5)
[2024-06-23] MEDS: D5-NS 0.45% + KCL 20 mEq 20 MEQ/1,000 ML BAG 100 MEQ IV (21:33)
[2024-06-23] MEDS: pantoprazole 40 mg SDV IVP (21:33)
[2024-06-23 22:01] LABS: Add Urine Culture? Yes; Specific Gravity, Urine 1.036 (1.005-1.030); UA Slide Review UA Slide Review Perf
[2024-06-23 22:33] LABS: Troponin 5 2HR 56.92 ng/L (0-10); Troponin 5 2HR Delta 8.92 ABS# (0-10)
[2024-06-23 22:46] LABS: Chol HDL Ratio 4.39 mg/dL (0.0-4.40); Cholesterol 167 mg/dL (0-200); HDL Cholesterol 38 mg/dL (60-100); LDL Cholesterol Calculated 114 mg/dL (50-129); Thyroid Stimulating Hormone 1.25 uIU/mL (0.27-4.20); Triglycerides 76 mg/dL (0-150)
[2024-06-23 22:54] LABS: Estmated Average Glucose 131; Hemoglobin A1C 6.2 % (4.0-6.0)
[2024-06-24] VITALS (39 sets, daily range): BP systolic 91–133; BP diastolic 59–80; PULSE 77–93; RESP 12–27; TEMP 36.4–36.9; O2SAT 92–100; BMI 24.3
--- NOTE | 2024-06-24 00:48 | ECG_ITS ---
[facility] Test Date: 2024-06-24 Pat Name: Zelda Hernandez Department: Room: 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 Measurements Intervals [place] Rate: 83 P: 81 NE: 195 QRS: 50 QRSD: 86 T: 31 QT: 385 QTc: 454 Interpretive Statements SINUS RHYTHM Compared to ECG 06/23/2024 21:27:32 First degree AV block no longer present Electronically Signed On 06-25-2024 21:12:32 CDT by Ap Cary M.D. [id number]
[2024-06-24 01:57] LABS: Partial Thromboplastin Time 54.3 SECONDS (23.9-36.7)
[2024-06-24] MEDS: heparin 5,000 unit/mL INJ 1 mL IVP ×2 (02:33→23:11)
[2024-06-24 04:58] LABS: Basophils # 0.1 10^3/uL (0.0-0.1); Basophils % 1.2 %; Eosinophils # 0.3 10^3/uL (0.0-0.8); Eosinophils % 2.9 %; Hematocrit 31.8 % (36-47); Lymphocytes # 2.3 10^3/uL (0.8-4.8); Mean Corpuscular HGB Conc 32.1 g/dL (30-55); Mean Corpuscular Hemoglobin 30.9 pg (27-33); Mean Corpuscular Volume 96.4 fl (85-98); Mean Platelet Volume 10.4 fL (7.4-10.4); Monocytes # 0.9 10^3/uL (0.2-0.9); Monocytes % 8.4 %; Neutrophils # 6.53 10^3/uL (1.8-7.7); Neutrophils % 64.2 %; Nucleated Red Blood Cells % 0 %; Platelet Count 413 10^3/cmm (157-399); Red Cell Distribution Width 13.2 % (12.1-15.1); White Blood Count 10.15 10^3/uL (3.29-11.43)
[2024-06-24 05:30] LABS: Alanine Aminotransferase 11 U/L (0-33); Albumin Level 3.1 g/dL (3.5-5.2); Alkaline Phosphatase 111 U/L (35-105); Anion Gap 13.7 (5-19); Aspartate Amino Transferase 11 U/L (0-32); Blood Urea Nitrogen 9 mg/dL (8-23); Calcium 8.7 mg/dL (8.5-10.5); Carbon Dioxide 23 mmol/L (22-29); Chloride 110 mmol/L (98-107); Creatinine Clr Calc Pharmacy 47.8012; Globulin 2.5 g/dL (1.3-4.6); Glucose 154 mg/dL (65-115); Magnesium 1.9 mg/dL (1.7-2.3); NT Pro B Type Natriuretic Pept 1125 pg/mL (0-450); Osmolality Calculated 298 mOsm/kg (285-295); Phosphorus 2.6 mg/dL (2.5-4.5); Potassium 3.7 mmol/L (3.5-5.1); Sodium 143 mmol/L (136-145); Total Bilirubin 0.3 mg/dL (0.15-1.2); Total Protein 5.6 g/dL (6.6-8.7)
[2024-06-24] MEDS: D5-NS 0.45% + KCL 20 mEq 20 MEQ/1,000 ML BAG 100 MEQ IV (07:31)
--- NOTE | 2024-06-24 07:58 | P.CONIM_ITS ---
Providers/Reason For Consult 2 Consulting Physician/Specialty*: General surgery Reason for Consult*: Possible SBO Primary Care Provider: ZANE Tan History of Present Illness History of Present Illness Zelda Hernandez is a 73 year old female who has a history of a small bowel obstruction, she underwent an exploratory laparotomy and lysis of additions 13 days ago, was discharged home in a stable condition 7 days ago. She returned to the hospital as she had not had a bowel movement for 3 days she was also feeling weak. Workup done in the emergency department including CT scan of the abdomen and pelvis show evidence of possible ileus versus obstruction as there was a small change in caliber in the distal ileum there was also finding of pulmonary embolus and after a CTA was done and was noted the patient has segmental and subsegmental pulmonary embolus. She was admitted to the medical team for management of the PE and we were consulted for evaluation of possible recurrent SBO. Patient has been doing well the only concern was not having a bowel movement 3 days she did not have any abdominal pain, no abdominal distention and she has been tolerating diet. Review of Systems 2 General: Reports: 10 or more systems reviewed and unremarkable except in HPI and below Medications/Allergies Home Medications Medication Instructions Recorded Confirmed Last Taken Type triamcinolone acetonide 55 mcg 1 spray intranasal DAILY PRN 04/05/21 06/24/24 Unknown History nasal spray aerosol (Nasacort) allergies alprazolam 0.5 mg tablet 0.5 mg PO DAILY 03/07/22 06/24/24 06/23/24 History amlodipine 5 mg tablet 5 mg PO DAILY 03/07/22 06/24/24 06/23/24 History baclofen 10 mg tablet 10 mg PO BID PRN Pain 03/07/22 06/24/24 06/23/24 History cetirizine 10 mg capsule (Zyrtec) 10 mg PO DAILY PRN allergies 03/07/22 06/24/24 03/07/22 History diltiazem HCl 360 mg capsule,24 360 mg PO DAILY 03/07/22 06/24/24 06/23/24 History hr,extended release simvastatin 40 mg tablet 40 mg PO DAILY 03/07/22 06/24/24 06/23/24 History trandolapril 4 mg tablet 4 mg PO DAILY 03/07/22 06/24/24 06/23/24 History alendronate 70 mg tablet See Rx Instructions .Route .COMPLEX 06/09/24 06/24/24 06/06/24 History paroxetine HCl 10 mg tablet 10 mg PO DAILY 06/09/24 06/24/24 06/23/24 History polyethylene glycol 3350 17 gram 17 g PO BID #14 ea 06/16/24 06/24/24 06/23/24 Rx oral powder packet ibuprofen 800 mg tablet 800 mg PO TID 06/23/24 06/24/24 06/23/24 History Allergies Allergy/AdvReac Type Severity Reaction Status Date / Time gabapentin Allergy Unknown Unknown Verified 02/18/24 10:41 Current Medications Generic Name Dose Route Start Last Admin Trade Name Freq PRN Reason Stop Dose Admin Heparin Sodium (Porcine) 0 unit 06/23/24 18:25 06/24/24 02:33 Heparin 5,000 Unit/Ml Inj 1 Ml IVP 1,000 unit PRN PRN Administration Heparin Weight Based Protocol -Subsequent Bolus Protocol Heparin Sodium/Sodium Chloride 25,000 unit in 500 mls @ 0 mls/hr 06/23/24 18:30 06/24/24 02:28 Heparin Drip IV 15.47 unit/kg/hr CONT MILAGRO 16 mls/hr Titration Protocol Per Protocol Potassium Chloride/Dextrose/Sod Cl 20 meq in 1,000 mls @ 100 mls/hr 06/23/24 20:49 06/24/24 07:31 D5-Ns 0.45% + Kcl 20 Meq IV 100 mls/hr .Q10H MILAGRO Administration Pantoprazole Sodium 40 mg 06/23/24 20:49 06/23/24 21:33 Pantoprazole 40 Mg Sdv IVP 40 mg Q12H MILAGRO Administration PFSH Acute 2 PFSH: Medical History (Updated 06/23/24 @ 19:07 by Trae Quinteros MD) Lumbar disc disease with radiculopathy Palpitations Hypertension Diabetes Surgical History (Updated 06/23/24 @ 19:05 by Trae Quinteros MD) H/O exploratory laparotomy Family History Father Hypertension Heart attack Social History Smoking and tobacco/nicotine status: never used tobacco/nicotine Alcohol intake: never Substance/Drug Use: never Vitals/I&O/Wt Last Vital Signs Temp 98.4 F 06/24/24 04:00 Pulse 80 06/24/24 05:35 Resp 20 H 06/24/24 05:00 BP 128/67 06/24/24 05:00 Pulse Ox 95 06/24/24 04:00 O2 Del Method Nasal Cannula 06/24/24 00:15 O2 Flow Rate 2 06/24/24 00:15 06/23/24 06/24/24 06/24/24 22:59 06:59 14:59 Intake Total 105.985 / 105.985 996.667 / 996.667 Balance 105.985 / 105.985 996.667 / 996.667 Weight last 48 hrs Weight 124 lb 3.2 oz Weight 124 lb 3.2 oz Weight 114 lb Physical Exam 2 GI: OTHER: Abdominal exam is benign, abdomen is soft, nontender, nondistended, positive bowel sounds. Surgical incision is well-healed rico are in place. Data 06/24/24 04:07 06/24/24 04:07 Micro: Microbiology 06/23/24 21:51 Blood Culture - Preliminary Blood SPECIMEN COLLECTED 06/23/24 21:45 Blood Culture - Preliminary Blood SPECIMEN COLLECTED A&P Assessment and plan (1) Bowel obstruction: (2) Bilateral pulmonary embolism: Plan 73-year-old female who is postoperative day 13 after exploratory laparotomy and lysis of adhesion for small bowel obstruction. Patient has been doing okay but presented to the hospital after not having a bowel movement for 3 days. We were consulted for possible SBO and patient also has pulmonary embolus. My independent review of imaging is the following. While there is some degree of distention of the small bowel with a small amount of distal tapering, I do not think this represents a small bowel obstruction at this point, this is concordant with the intraoperative findings as the proximal bowel was extremely dilated and the distal bowel was normal. There is evidence of liquid and solid stool in the large bowel as well as large amount of gas in the large bowel and rectum, this indicates that there is not a complete obstruction. There is no distention of the stomach. No other intra-abdominal findings of significance. In addition after hospital stay overnight patient was able to have a large bowel movement this morning, she is feeling much better. I think her main symptoms were due to her pulmonary embolus rather than a small bowel obstruction. At this time is safe to advance diet to a full liquid and then advance as tolerated, she will be restarted in a twice a day MiraLAX bowel regimen and if she does not have another bowel movement in the next for 8 hours I will consider to give her 1 bottle of magnesium citrate. Once tolerating diet she can be cleared for discharge from the surgical standpoint, she needs to continue medical management for her PE. -No evidence of small bowel obstruction at this time, patient had a large bowel movement this morning -Full liquid diet and advance as tolerated -MiraLAX twice a day -Will consider AdMag citrate if MiraLAX is not effective in producing a bowel movement in the next 48 hours. Coding Level of Care Code 72291 Diagnoses Bowel obstruction K56.609 Bilateral pulmonary embolism I26.99
[2024-06-24] MEDS: pantoprazole 40 mg SDV IVP ×2 (08:17→20:49)
[2024-06-24] MEDS: cefTRIAXone 1,000 mg SDV 1000 MG IVP (08:17)
[2024-06-24 09:43] LABS: Partial Thromboplastin Time 52.5 SECONDS (23.9-36.7)
--- NOTE | 2024-06-24 11:00 | PC.SOCIAL ---
IMM Updated Updated pt on IMM. No questions voiced. Provided pt a copy. Initialed, dated, & timed a copy & placed in chart.
--- NOTE | 2024-06-24 12:00 | P.PN_ITS ---
Subjective 2 Subjective: Patient was seen this morning, she denies any abdominal pain this morning she had a bowel movement overnight, no nausea, no vomiting, no chest pain she is on 1 L Vitals/I&O/Wt Last Vital Signs Temp 97.5 F L 06/24/24 08:00 Pulse 77 06/24/24 08:30 Resp 16 06/24/24 08:30 BP 103/68 06/24/24 08:00 Pulse Ox 96 06/24/24 08:30 O2 Del Method Nasal Cannula 06/24/24 08:30 O2 Flow Rate 2 06/24/24 08:30 06/23/24 06/24/24 06/24/24 22:59 06:59 14:59 Intake Total 105.985 / 667.292 4487.219 / 1785.219 Balance 105.985 / 272.957 5503.219 / 1785.219 Weight last 48 hrs Weight 56.336 kg Weight 56.336 kg Weight 51.71 kg Physical Exam 2 Const: COMMON NORMALS: no acute distress and patient oriented x3 Resp: COMMON NORMALS: normal respiratory effort, No retractions, No use of accessory muscles and clear to auscultation bilaterally AUSCULTATION: clear to auscultation bilaterally Cardio: COMMON NORMALS: regular rate, regular rhythm, S1 normal heart sound present and S2 normal heart sound present RATE: regular rate RHYTHM: r egular rhythm HEART SOUNDS: S1 normal heart sound present and S2 normal heart sound present GI: COMMON NORMALS: Normal to inspection, nondistended, normoactive bowel sounds present, Soft to palpation and non-tender PALPATION: Yes Soft to palpation OTHER: Surgical site looks clean dry, surgical rico in place Extremity: COMMON NORMALS: no pedal edema Neuro: COMMON NORMALS: patient oriented x3 Psych: COMMON NORMALS: mental status grossly normal Data 06/24/24 04:07 06/24/24 04:07 Micro: Microbiology 06/23/24 21:51 Blood Culture - Preliminary Blood SPECIMEN COLLECTED 06/23/24 21:45 Blood Culture - Preliminary Blood SPECIMEN COLLECTED A&P Assessment and plan (1) Bilateral pulmonary embolism: (2) Bowel obstruction: Plan Bilateral pulmonary embolism with evidence of right heart strain CT/CT angio chest PE protcl [id number] IMPRESSION: 1. Acute bilateral segmental/subsegmental PE. There are findings suggestive of right heart strain. No evidence of pulmonary infarct. -Venous ultrasound no evidence of DVT -CONCLUSIONS Normal left ventricular size and systolic function, EF 58%.no regional wall motion abnormalities. Grade I/IV diastolic dysfunction (abnormal relaxation filling pattern), normal to mildly elevated filling pressures. Normal RV size and ejection fraction. Moderate pulmonary hypertension with an estimated pulmonary artery peak systolic pressure 55 mmHg Thickened aortic valve. Trace aortic valve regurgitation. Features of aortic valve sclerosis. Moderate mitral annular calcification. Mild mitral valve regurgitation. Estimated pulmonary artery peak systolic pressure 55 mm of Hg. There is no pericardial effusion. There are no intracardiac masses. No evidence of any RV strain. No similar previous studies are available for comparison Plan ? Oxygen therapy ? move to [facility] ? Heparin drip. luther tomorrow, monitor hgn Concerns for small bowel obstruction CT/CT abdomen pelvis w con* [id number] IMPRESSION: 1. Findings concerning for small bowel obstruction with change in caliber in the lower abdomen. Given recent surgery, there may be a component of postoperative ileus. Consider surgical evaluation and correlation with exam utilizing oral contrast as clinically warranted. -good bowel sounds this morning, had a bowel movement, no abdominal pain Plan ? on clear ?stop IV fluids ? Morphine for pain -Zofran for nausea ? General Surgery consulted Monitor for delirium, confusion, this was present during her last hospitalization ? CODE STATUS patient is full code ? Heparin drip for DVT prophylaxis plan for today, moved to [facility] [place], continue heparin drip, monitor hemoglobin, transition diet Attestations 2 Medical Necessity Statement*: Patient requires hospitalization, inpatient, greater than 2 midnights, for bilateral pulmonary embolism with evidence of right heart strain acute hypoxia requiring oxygen therapy, concerns for bowel obstruction and High MDM includes number and complexity of problems actively addressed during encounter, amount and/or complexity of data reviewed/ordered and described risk of complication, morbidity or mortality of management as documented Diagnoses Bilateral pulmonary embolism I26.99 Bowel obstruction K56.609
[2024-06-24 14:07] LABS: Basophils # 0.1 10^3/uL (0.0-0.1); Basophils % 1.6 %; Eosinophils # 0.3 10^3/uL (0.0-0.8); Eosinophils % 4.2 %; Hematocrit 31.4 % (36-47); Lymphocytes # 1.7 10^3/uL (0.8-4.8); Lymphocytes % 24.7 %; Mean Corpuscular HGB Conc 31.2 g/dL (30-55); Mean Corpuscular Hemoglobin 30.6 pg (27-33); Mean Corpuscular Volume 98.1 fl (85-98); Mean Platelet Volume 10.2 fL (7.4-10.4); Monocytes # 0.7 10^3/uL (0.2-0.9); Monocytes % 10.3 %; Neutrophils % 58.9 %; Nucleated Red Blood Cells % 0 %; Platelet Count 375 10^3/cmm (157-399); Red Cell Distribution Width 13.2 % (12.1-15.1); White Blood Count 6.96 10^3/uL (3.29-11.43)
--- OUTSIDE RECORDS SUMMARY | 2024-06-24 15:14 | XMS_ITS | Patient Health Record ---
Author Name Unknown Organization [facility] [employer] Address [address], [place] [id number] Care Team Providers Care Explosives Handler Name Role Phone Rip Gonzalez MD Unavailable [phone] Carter NITRATING ACID MIXER, Kayy Unavailable Unavailable REASON FOR REFERRAL Reason Lumbar pain; Recent MRI at [facility] Diagnosis 1 Spondylosis without myelopathy or radiculopathy, lumbosacral region (M47.817) Referring Provider First Name Kayy Referring Provider Last Name Carter Referring Provider Speciality Nurse Prac titioner Referred Organization [facility] Referred Provider Rip Gonzalez Referred Address [address], [id number], Referred Provider Specialty Pain Managem ent General Notes Jessica Hope 06/2024 04:47:22 PM >Sent for insurance verification., Renee Ibarra 05/31/2024 05:11:10 PM > [employer]age Plan $35.00 copay., Jessica Hope 06/06/2024 10:55:34 AM >Left message to schedule., Jessica Hope 06/09/2024 01:57:10 PM >Left message on both phone numbers. Referral Priority Routine MEDICATIONS Medication SIG (Take, Route, Frequency, Duration) Notes Start Date End Date Status PARoxetine 20 mg 1 tab orally once a day Active trandolapril 4 mg 1 tab orally once a day Active furosemide 40 mg 1/2 tab orally once a day Active K-Dur 10 1 tab once a day Act merced omeprazole 20 mg 1 cap orally once a day Active cetirizine 10 mg 1 tab orally once a day, as needed Active amLODIPine 5 mg 1 tab orally once a day Active simvastatin 40 mg 1 tab orally once a day (at bedtime) Active DilTIAZem Hydrochloride ER 360 mg/24 hours 1 cap orally once a day A ctive norco 325 mg-5 mg 1 tab orally every 4 hours Active ibuprofen 800 mg 1 tab po orally TID prn pain; take with food Active ALPRAZolam 0.5 mg 1 tab orally 3 times a day, as needed for anxiety Active SOCIAL HISTORY Tobacco Use: Social History Observation Description Date Details (start date - stop date) Never Smoker NA - NA Sex Assigned At : Social History Observation Description Sex Assigned At Unknown Tobacco use: Question Answer Notes : nonsmoker PROBLEMS Problem Type ICD Code Onset Dates Problem Status W/U Status Risk SNOMED Code Notes Problem Low back pain (M54.5) Active confirmed Low back pain (350661033) Problem Spondylosis without myelopathy or radiculopathy, lumbar region (M47.816) Active confirmed Lumbosacral spondylosis without myelopathy (89322046) Problem Other specified anxiety disorders (F41.8) Active confirmed Anxiety disorde r (962101824) Problem Spondylolisthesis , lumbar region (M43.16) Active confirmed Acquired spondylolisthesis (619469236) Problem Spondylosis without myelopathy or radiculopathy, lumbosacral region (M47.817) Active confirmed Lumbosacral spondylosis without myelopathy (disorder) (82064116) Problem Spinal stenosis, lumbar region (M48.06) Active confirmed Spinal stenosis of lumbar region (74633093) Problem Intervertebral disc disorders with radiculopathy, lumbar region (M51.16) Active confirmed Radiculopathy d ue to lumbar intervertebral disc disorder (352865584027928) Problem Pain in right leg (M79.604) Active confirmed Pain in right l eg (797940052) Problem Other snf (current) drug therapy (Z79.899) Active confirmed Long-term current use of drug therapy (001503475) Problem Spinal stenosis, lumbar region with neurogenic claudication (M48.062) Active confirmed Neurogenic claudication (575713932) PLAN OF TREATMENT No Information Insurance Providers Payer Name Payer Address Payer Phone Subscriber Number Group Number Insured Name Patient Relationship to Insured Coverage Start Date Coverage End Date ALYSSA PHILLIPS [address] [address] [place] [address] [phone] [id number] Zelda rByan Self - patient is the insured MEDICAL (GENERAL) HISTORY Medical History History ICD Code Back pain Hyperlipidemia Hypertension Heart murmur, systolic Type II diabetes Bilateral hip pain Right leg pain Left wrist pain Scoliosis Rheumatoid arthritis Numbness and tingling, BLE (R>L) L3 compression fracture Surgical History Surgery Date(Month/Year) Tubal ligation, 1978 Cholecystectomy, 2002 Removed stone from bile duct after emir cystectomy surgery, 2002 Hospitalization History Reason Date(Month/Year) Heart problems, 1999
[2024-06-24 16:33] LABS: Partial Thromboplastin Time 56.5 SECONDS (23.9-36.7)
[2024-06-24] MEDS: polyethylene glycol 3350 Pkt 17 gm PO (17:40)
[2024-06-24 20:48] LABS: Ferritin 178 ng/mL (15-150); Iron 18 ug/dL (37-145); Percent Saturation 7.6 % (20-50); Total Iron Binding Capacity 236 mcg/dl; Unsaturated Iron Binding 218 ug/dL (112-347)
[2024-06-24] MEDS: atorvastatin 40 mg Tablet PO (20:49)
[2024-06-24 22:52] LABS: Partial Thromboplastin Time 50.5 SECONDS (23.9-36.7)
[2024-06-24] MEDS: ALPRAZolam 0.5 mg Tablet PO (23:12)
[2024-06-25] VITALS (9 sets, daily range): BP systolic 112–133; BP diastolic 61–78; PULSE 71–93; RESP 14–16; TEMP 36.7–36.9; O2SAT 92–96
[2024-06-25] MEDS: morphine 4 mg/mL SDV 1 mL 2 MG IVP (01:03)
[2024-06-25] MEDS: heparin drip 25,000 UNIT/500 ML PREMIX 18 UNIT IV (01:05)
[2024-06-25 05:29] LABS: Basophils # 0.1 10^3/uL (0.0-0.1); Basophils % 1.6 %; Eosinophils # 0.5 10^3/uL (0.0-0.8); Eosinophils % 5.6 %; Hematocrit 31.2 % (36-47); Lymphocytes # 2.3 10^3/uL (0.8-4.8); Mean Corpuscular HGB Conc 32.4 g/dL (30-55); Mean Corpuscular Hemoglobin 31.3 pg (27-33); Mean Corpuscular Volume 96.6 fl (85-98); Mean Platelet Volume 9.9 fL (7.4-10.4); Monocytes # 0.7 10^3/uL (0.2-0.9); Neutrophils # 4.52 10^3/uL (1.8-7.7); Neutrophils % 55.4 %; Nucleated Red Blood Cells % 0 %; Platelet Count 382 10^3/cmm (157-399); Red Blood Count 3.23 10^6/uL (3.85-5.65); Red Cell Distribution Width 13.1 % (12.1-15.1); White Blood Count 8.15 10^3/uL (3.29-11.43)
[2024-06-25 05:44] LABS: Alanine Aminotransferase 9 U/L (0-33); Albumin Level 2.7 g/dL (3.5-5.2); Alkaline Phosphatase 89 U/L (35-105); Aspartate Amino Transferase 16 U/L (0-32); Blood Urea Nitrogen 9 mg/dL (8-23); Calcium 8.3 mg/dL (8.5-10.5); Carbon Dioxide 24 mmol/L (22-29); Chloride 109 mmol/L (98-107); Creatinine Clr Calc Pharmacy 48.5498; Globulin 2.5 g/dL (1.3-4.6); Glucose 118 mg/dL (65-115); Magnesium 1.8 mg/dL (1.7-2.3); Osmolality Calculated 290 mOsm/kg (285-295); Phosphorus 2.9 mg/dL (2.5-4.5); Sodium 140 mmol/L (136-145); Total Bilirubin 0.2 mg/dL (0.15-1.2); Total Protein 5.2 g/dL (6.6-8.7)
[2024-06-25 05:48] LABS: Partial Thromboplastin Time 104.5 SECONDS (23.9-36.7)
[2024-06-25 06:04] LABS: NT Pro B Type Natriuretic Pept 562 pg/mL (0-450)
[2024-06-25] MEDS: PARoxetine 20 mg Tablet 10 MG PO (09:03)
[2024-06-25] MEDS: cefTRIAXone 1,000 mg SDV 1000 MG IVP (09:03)
[2024-06-25] MEDS: pantoprazole 40 mg SDV IVP (09:03)
[2024-06-25] MEDS: polyethylene glycol 3350 Pkt 17 gm PO (09:04)
[2024-06-25] MEDS: apixaban 5 mg Tablet 10 MG PO (09:15)
--- NOTE | 2024-06-25 10:26 | P.DS_ITS ---
Discharge Providers Date of Admission: 06/23/24 19:09 Date of Discharge: June 25, 2024 Attending Provider at Admission: Damian Chester MD Attending Provider at Discharge: Damian Chester MD Primary Care Provider: ZANE Tan Diagnoses at Discharge Discharge Diagnosis (1) Bilateral pulmonary embolism: Status: Acute (2) Bowel obstruction: Status: Acute Reason for Visit Reason for Visit: bowel problems Hospital Course Hospital Course Zelda Hernandez is a 73 year old female With a past medical history of hypertension, recent history of exploratory laparotomy with lysis of adhesions, for high-grade bowel obstruction, she did have episodes of agitation confusion and delirium during the hospital stay. Currently she is alert oriented x 3, following all commands, she tells me that she has not had a bowel movement since Thursday, continues to have abdominal pain, abdominal distention, not passing gas from below, no nausea, no vomiting but does report decreased appetite, no chest pain, palpitations no shortness of breath, does have a cough but no hemoptysis, no calf pain, no calf swelling, she does report that she continues to be immobile even after surgery, she is very active, denies a history of PEs, denies a history of anemia, denies a cardiovascular history Bilateral pulmonary embolism with evidence of right heart strain CT/CT angio chest PE protcl [id number] IMPRESSION: 1. Acute bilateral segmental/subsegmental PE. There are findings suggestive of right heart strain. No evidence of pulmonary infarct. -Venous ultrasound no evidence of DVT -CONCLUSIONS Normal left ventricular size and systolic function, EF 58%.no regional wall motion abnormalities. Grade I/IV diastolic dysfunction (abnormal relaxation filling pattern), normal to mildly elevated filling pressures. Normal RV size and ejection fraction. Moderate pulmonary hypertension with an estimated pulmonary artery peak systolic pressure 55 mmHg Thickened aortic valve. Trace aortic valve regurgitation. Features of aortic valve sclerosis. Moderate mitral annular calcification. Mild mitral valve regurgitation. Estimated pulmonary artery peak systolic pressure 55 mm of Hg. There is no pericardial effusion. There are no intracardiac masses. No evidence of any RV strain. No similar previous studies are available for comparison -Patient was admitted to [facility] for bilateral pulmonary embolism, monitored in the ICU, received heparin drip for 48 hours, tolerated it well, no bloody or black stools, moved out of ICU, not requiring oxygen on room air, does have some shortness of breath with exertion. Will be discharged home on Eliquis therapy, as this was a provoked DVT, she would likely require anticoagulation for at least 6 months. For concerns for bowel obstruction on admission, general surgery was consulted, overall clinically improved, passing gas from below, having bowel movements, tolerating a regular diet well. Will discharge her on GI soft diet with a close follow-up with general surgery as outpatient, if any recurrent abdominal pain please come back to the emergency room Physical Exam Const: COMMON NORMALS: no acute distress and patient oriented x3 Resp: COMMON NORMALS: normal respiratory effort, No retractions, No use of accessory muscles and clear to auscultation bilaterally AUSCULTATION: clear to auscultation bilaterally Cardio: COMMON NORMALS: regular rate, regular rhythm, S1 normal heart sound present and S2 normal heart sound present RATE: regular rate RHYTHM: regular rhythm HEART SOUNDS: S1 normal heart sound present and S2 normal heart sound present GI: COMMON NORMALS: Normal to inspection, nondistended, normoactive bowel sounds present and non-tender OTHER: Surgical site looks clean and dry Extremity: COMMON NORMALS: no pedal edema Neuro: COMMON NORMALS: patient oriented x3, CN's II-XII intact bilaterally and moves all extremities Psych: COMMON NORMALS: mental status grossly normal Discharge Data Studies Completed and Pending Completed Studies During Hospitalization Category Date Time Status CT abdomen pelvis w con* [id number] Stat Cat Scan 06/23/24 15:[address] angio chest PE protcl [id number] Stat Cat Scan 06/23/24 18:01 [place] [id number] Stat Ultrasound 06/23/24 18:50 Completed CV. echo complete* [id number] Stat Ultrasound 06/23/24 18:50 Completed Pending at discharge Category Date Time Status Blood Culture Routine Lab 06/23/24 21:51 Results Complete Blood Count w/Auto AM LABS Lab 06/26/24 04:00 Ordered Comprehensive Metabolic Panel AM LABS Lab 06/26/24 04:00 Ordered Magnesium AM LABS Lab 06/26/24 04:00 Ordered NT Pro B Type Natriuretic Pept QAM Lab 06/26/24 06:00 Ordered Occult Blood Stool [Immunochemical Fecal OCB] Routine Lab 06/24/24 20:10 Uncollected PTT [Partial Thromboplastin Time] Timed Lab 06/25/24 12:02 Ordered Phosphorus AM LABS Lab 06/26/24 04:00 Ordered Urine Culture Stat Lab 06/23/24 20:13 Received Radiology Impressions Abdomen/Pelvis CT 06/23/24 15:41 IMPRESSION: 1. Findings concerning for small bowel obstruction with change in caliber in the lower abdomen. Given recent surgery, there may be a component of postoperative ileus. Consider surgical evaluation and correlation with exam utilizing oral contrast as clinically warranted. 2. Right lower lobe PE. Correlation with CT angiography is recommended. 3. Osteonecrosis of both femoral heads. Consider outpatient orthopedic evaluation. The findings were verbally communicated by telephone with Dr. ROWE at 5:59 PM CDT on 06/23/2024. Chest CTA 06/23/24 18:01 IMPRESSION: 1. Acute bilateral segmental/subsegmental PE. There are findings suggestive of right heart strain. No evidence of pulmonary infarct. ADDENDUM: 06/23/24 1900 The findings were verbally communicated by telephone with Dr. Banks at 6:57 PM CDT on 06/23/2024. Venous Duplex 06/23/24 18:50 IMPRESSION: 1. No sonographic evidence of deep venous thrombosis in either lower extremity. Laboratory Results WBC 8.15 10^3/uL (3.29-11.43) 06/25/24 05:15 RBC 3.23 10^6/uL (3.85-5.65) L 06/25/24 05:15 Hgb 10.10 g/dL (11.27-16.99) L 06/25/24 05:15 Hct 31.2 % (36-47) L 06/25/24 05:15 MCV 96.6 fl (85-98) 06/25/24 05:15 MCH 31.3 pg (27-33) 06/25/24 05:15 MCHC 32.4 g/dL (30-55) 06/25/24 05:15 RDW 13.1 % (12.1-15.1) 06/25/24 05:15 Plt Count 382 10^3/cmm (157-399) 06/25/24 05:15 MPV 9.9 fL (7.4-10.4) 06/25/24 05:15 Neut % (Auto) 55.4 % 06/25/24 05:15 Lymph % (Auto) 28.0 % 06/25/24 05:15 Cassia % (Auto) 9.0 % 06/25/24 05:15 Eos % (Auto) 5.6 % 06/25/24 05:15 Baso % (Auto) 1.6 % 06/25/24 05:15 Neut # (Auto) 4.52 10^3/uL (1.8-7.7) 06/25/24 05:15 Lymph # (Auto) 2.3 10^3/uL (0.8-4.8) 06/25/24 05:15 Cassia # (Auto) 0.7 10^3/uL (0.2-0.9) 06/25/24 05:15 Eos # (Auto) 0.5 10^3/uL (0.0-0.8) 06/25/24 05:15 Baso # (Auto) 0.1 10^3/uL (0.0-0.1) 06/25/24 05:15 Nucleated RBC % (auto) 0 % 06/25/24 05:15 Nucleated RBCs # 0.0 /100WBC 06/25/24 05:15 PT 15.00 SECONDS (12.1-14.9) H 06/23/24 16:32 INR 1.14 (0.8-1.2) 06/23/24 16:32 APTT 104.5 SECONDS (23.9-36.7) H D 06/25/24 05:15 Sodium 140 mmol/L (136-145) 06/25/24 05:15 Potassium 4.0 mmol/L (3.5-5.1) 06/25/24 05:15 Chloride 109 mmol/L (98-107) H 06/25/24 05:15 Carbon Dioxide 24 mmol/L (22-29) 06/25/24 05:15 Anion Gap 11.0 (5-19) 06/25/24 05:15 BUN 9 mg/dL (8-23) 06/25/24 05:15 Creatinine 0.7 mg/dL (0.5-0.9) 06/25/24 05:15 GFR Calculation Not Reportable 06/25/24 05:15 Glucose 118 mg/dL (65-115) H 06/25/24 05:15 Estimat Average Glucose 131 06/23/24 21:45 Hemoglobin A1c 6.2 % (4.0-6.0) H 06/23/24 21:45 Calculated Osmolality 290 mOsm/kg (285-295) 06/25/24 05:15 Lactic Acid 0.9 mmol/L (0.5-2.2) 06/23/24 16:32 Calcium 8.3 mg/dL (8.5-10.5) L 06/25/24 05:15 Phosphorus 2.9 mg/dL (2.5-4.5) 06/25/24 05:15 Magnesium 1.8 mg/dL (1.7-2.3) 06/25/24 05:15 Iron 18 ug/dL (37-145) L 06/23/24 21:45 TIBC 236 mcg/dl 06/23/24 21:45 % Saturation 7.6 % (20-50) L 06/23/24 21:45 Unsat Iron Binding 218 ug/dL (112-347) 06/23/24 21:45 Ferritin 178 ng/mL (15-150) H 06/23/24 21:45 Total Bilirubin 0.2 mg/dL (0.15-1.2) 06/25/24 05:15 AST 16 U/L (0-32) 06/25/24 05:15 ALT 9 U/L (0-33) 06/25/24 05:15 Alkaline Phosphatase 89 U/L (35-105) 06/25/24 05:15 Troponin T Baseline 48 ng/L (0-10) H 06/23/24 16:32 Troponin T 120 Minute 56.92 ng/L (0-10) H 06/23/24 21:45 Delta Troponin T 8.92 ABS# (0-10) 06/23/24 21:45 C-Reactive Protein 93.4 mg/L (0.0-4.9) H 06/23/24 16:32 NT-Pro-B Natriuret Pep 562 pg/mL (0-450) H 06/25/24 05:15 Total Protein 5.2 g/dL (6.6-8.7) L 06/25/24 05:15 Albumin 2.7 g/dL (3.5-5.2) L 06/25/24 05:15 Globulin 2.5 g/dL (1.3-4.6) 06/25/24 05:15 Triglycerides 76 mg/dL (0-150) 06/23/24 21:45 Cholesterol 167 mg/dL (0-200) 06/23/24 21:45 LDL Cholesterol, Calc 114 mg/dL (50-129) 06/23/24 21:45 HDL Cholesterol 38 mg/dL (60-100) L 06/23/24 21:45 LDL/HDL Ratio 3.00 RATIO (0.00-3.22) 06/23/24 21:45 Cholesterol/HDL Ratio 4.39 mg/dL (0.0-4.40) 06/23/24 21:45 Lipase 19 U/L (13-60) 06/23/24 13:05 Procalcitonin 3.44 ng/mL (0-0.5) H 06/23/24 16:32 TSH 1.25 uIU/mL (0.27-4.20) 06/23/24 21:45 Urine Color Yellow (Yellow) 06/23/24 20:13 Urine Appearance Clear (CLEAR) 06/23/24 20:13 Urine pH 6.5 (5-7) 06/23/24 20:13 Ur Specific [place] 1.036 (1.005-1.030) H 06/23/24 20:13 Urine Protein Negative (Negative) 06/23/24 20:13 Urine Glucose (UA) Negative (Normal) 06/23/24 20:13 Urine Ketones Negative (Negative) 06/23/24 20:13 Urine Blood Negative (Negative) 06/23/24 20:13 Urine Nitrate Negative (Negative) 06/23/24 20:13 Urine Bilirubin Negative (Negative) 06/23/24 20:13 Urine Urobilinogen 0.2 mg/dL (Negative) 06/23/24 20:13 Ur Leukocyte Esterase 1+ (Negative) A 06/23/24 20:13 Urine RBC 51-100 /hpf (0-2) H 06/23/24 20:13 Urine WBC 21-50 /hpf (0-5) H 06/23/24 20:13 Ur Squamous Epith Cells 0-5 /hpf (0-5) 06/23/24 20:13 Amorphous Sediment Not Reportable 06/23/24 20:13 Urine Bacteria None seen /hpf (NONE) 06/23/24 20:13 Hyaline Casts 4.11 /lpf 06/23/24 20:13 Urine Yeast 2+ /hpf H 06/23/24 20:13 Vitals Last Vital Signs Temp 98.0 F 06/25/24 08:00 Pulse 90 06/25/24 09:00 Resp 16 06/25/24 09:00 BP 124/63 06/25/24 08:00 Pulse Ox 93 06/25/24 09:00 O2 Del Method Room Air 06/25/24 09:00 O2 Flow Rate 2 06/24/24 08:30 Discharge Plan Discharge Patient Disposition: Home Condition: Stable Prescriptions: New cefdinir 300 mg capsule 300 mg PO BID 5 Days Qty: 10 0RF Eliquis DVT-PE Treat 30D Start 5 mg (74 tabs) tablets,dose pack See Rx Instructions .ROUTE .COMPLEX Qty: 74 0RF Rx Instructions: orally per package directions Continued triamcinolone acetonide [Nasacort] 55 mcg aerosol,spray 1 spray intranasal DAILY PRN (Reason: allergies) trandolapril 4 mg tablet 4 mg PO DAILY simvastatin 40 mg tablet 40 mg PO DAILY alprazolam 0.5 mg tablet 0.5 mg PO DAILY baclofen 10 mg tablet 10 mg PO BID PRN (Reason: Pain) Zyrtec 10 mg Capsule 10 mg PO DAILY PRN (Reason: allergies) paroxetine HCl 10 mg tablet 10 mg PO DAILY alendronate 70 mg tablet See Rx Instructions .ROUTE .COMPLEX Rx Instructions: TAKE ONE TABLET BY MOUTH ONCE a WEEK. TAKE with 6-8 ounces of plain water, AT least 30 minutes BEFORE first food, beverage, OR medication of THE DAY. on Thursday polyethylene glycol 3350 17 gram Powder In Packet 17 g PO BID Qty: 14 0RF Held diltiazem HCl 360 mg capsule,extended release 24 hr 360 mg PO DAILY Hold Instructions: Resume on 06/27/24. hold until you see primary care amlodipine 5 mg tablet 5 mg PO DAILY Hold Instructions: Resume on 06/27/24. resume thursday Discontinued ibuprofen 800 mg tablet 800 mg PO TID Discharge Orders: Discharge Order (Routine); Ordered 06/25/24 Ordered By: Trae Quinteros Other Ambulatory Orders: DME: Ronald (Order) Location: None Selected Ordered By: Trae Aldair [place] [facility] [place] Oliver Wilder MD [Physician] - 1 week Carter,ZANE Sultana [Primary Care Provider] - 7-10 days (We have notified your physician's clinic of the need for a follow-up appointment to be scheduled. If y ou have not heard from them within the next 2 business days, please call them directly. ) Discharge Diet: As Directed Discharge Activity: Resume usual activity Patient Instructions: Cefdinir (By mouth), Apixaban (By mouth) (Eliquis), Apixaban (By mouth), Pulmonary Embolism (GEN), Pulmonary Edema (DC), GI (Gastrointestinal) Soft Diet (DC), Opioid Safety Activity Restrictions/Additional Instructions: - If you develop bloody or black stools please immediately call 911 -If you have a significant fall please immediately, 911 -Remember Eliquis is a very powerful blood thinner, if you have any significant bleeding please come to the emergency room -If you have recurrent abdominal pain please go to the emergency room Discharge Attestations Time Spent in Discharge Care*: greater than 30 min Quality Metrics Clinical Quality Measures [ Venous Thromboembolism { Contraindication to Overlap Therapy: Overlap treatment not indicated; VTE Discharge Education: Education about anticoagulant therapy/Care Notes given;}] Coding Level of Care Code Acute Code for Chg Fwd Diagnoses Bilateral pulmonary embolism I26.99 Bowel obstruction K56.609
--- NOTE | 2024-06-25 12:01 | P.CONIM_ITS ---
Providers/Reason For Consult 2 Attending Physician: Damian Chester MD Primary Care Provider: ZANE Tan History of Present Illness History of Present Illness Zelda Hernandez is a 73 year old female Medications/Allergies Home Medications Medication Instructions Recorded Confirmed Last Taken Type triamcinolone acetonide 55 mcg 1 spray intranasal DAILY PRN 04/05/21 06/24/24 Unknown History nasal spray aerosol (Nasacort) allergies alprazolam 0.5 mg tablet 0.5 mg PO DAILY 03/07/22 06/24/24 06/23/24 History amlodipine 5 mg tablet 5 mg PO DAILY 03/07/22 06/24/24 06/23/24 History baclofen 10 mg tablet 10 mg PO BID PRN Pain 03/07/22 06/24/24 06/23/24 History cetirizine 10 mg capsule (Zyrtec) 10 mg PO DAILY PRN allergies 03/07/22 06/24/24 03/07/22 History diltiazem HCl 360 mg capsule,24 360 mg PO DAILY 03/07/22 06/24/24 06/23/24 History hr,extended release simvastatin 40 mg tablet 40 mg PO DAILY 03/07/22 06/24/24 06/23/24 History trandolapril 4 mg tablet 4 mg PO DAILY 03/07/22 06/24/24 06/23/24 History alendronate 70 mg tablet See Rx Instructions .Route .COMPLEX 06/09/24 06/24/24 06/06/24 History paroxetine HCl 10 mg tablet 10 mg PO DAILY 06/09/24 06/24/24 06/23/24 History polyethylene glycol 3350 17 gram 17 g PO BID #14 ea 06/16/24 06/24/24 06/23/24 Rx oral powder packet apixaban 5 mg (74 tabs) tablets in See Rx Instructions PO .COMPLEX 06/25/24 Unknown Rx a dose pack (Eliquis DVT-PE Treat #74 ea 30D Start) cefdinir 300 mg capsule 300 mg PO BID 5 days #10 caps 06/25/24 Unknown Rx Allergies Allergy/AdvReac Type Severity Reaction Status Date / Time gabapentin Allergy Unknown Unknown Verified 02/18/24 10:41 Current Medications Generic Name Dose Route Start Last Admin Trade Name Freq PRN Reason Stop Dose Admin Alprazolam 0.5 mg 06/24/24 21:00 06/24/24 23:12 Alprazolam 0.5 Mg Tablet PO 0.5 mg BEDTIME MILAGRO Administration Apixaban 10 mg 06/25/24 09:00 06/25/24 09:15 Apixaban 5 Mg Tablet PO 10 mg BID@0900,2100 MILAGRO Administration Atorvastatin Calcium 40 mg 06/24/24 21:00 06/24/24 20:49 Atorvastatin 40 Mg Tablet PO 40 mg BEDTIME MILAGRO Administration Ceftriaxone Sodium 1,000 mg 06/24/24 08:00 06/25/24 09:03 Ceftriaxone 1,000 Mg Sdv IVP 1,000 mg Q24H MILAGRO Administration Protocol Morphine Sulfate 2 mg 06/23/24 20:49 06/25/24 01:03 Morphine 4 Mg/Ml Sdv 1 Ml IVP 2 mg Q4H PRN Administration SEVERE PAIN Pantoprazole Sodium 40 mg 06/23/24 20:49 06/25/24 09:03 Pantoprazole 40 Mg Sdv IVP 40 mg Q12H MILAGRO Administration Paroxetine HCl 10 mg 06/25/24 09:00 06/25/24 09:03 Paroxetine 20 Mg Tablet PO 10 mg DAILY MILAGRO Administration Polyethylene Glycol 17 gm 06/24/24 09:00 06/25/24 09:04 Polyethylene Glycol 3350 Pkt 17 Gm PO 17 gm BID MILAGRO Administration PFSH Acute 2 PFSH: Medical History (Updated 06/24/24 @ 15:47 by Deep Painter DO) Lumbar disc disease with radiculopathy Palpitations Hypertension Diabetes Surgical History (Updated 06/23/24 @ 19:05 by Trae Quniteros MD) H/O exploratory laparotomy Family History Father Hypertension Heart attack Social History Smoking and tobacco/nicotine status: never used tobacco/nicotine Alcohol intake: never Substance/Drug Use: never Vitals/I&O/Wt Last Vital Signs Temp 98.0 F 06/25/24 08:00 Pulse 71 06/25/24 11:55 Resp 14 06/25/24 11:55 BP 112/61 06/25/24 11:55 Pulse Ox 96 06/25/24 11:55 O2 Del Method Room Air 06/25/24 11:55 O2 Flow Rate 2 06/24/24 08:30 06/24/24 06/25/24 06/25/24 22:59 06:59 14:59 Intake Total 638.41 / 2663.629 246.688 / 2910.317 649.4 / 649.4 Balance 638.41 / 2663.629 246.688 / 2910.317 649.4 / 649.4 Weight last 48 hrs Weight 128 lb 8 oz Weight 124 lb 3.2 oz Weight 124 lb 3.2 oz Weight 114 lb Data 06/25/24 05:15 06/25/24 05:15 Micro: Microbiology 06/23/24 20:13 Urine Culture - Final Urine,Clean Catch 06/23/24 21:45 Blood Culture - Preliminary Blood NEGATIVE TO DATE 06/23/24 21:51 Blood Culture - Preliminary Blood NEGATIVE TO DATE Coding Level of Care Code Acute Code for Chg Fwd
[2024-06-25 12:10] LABS: Partial Thromboplastin Time 34.1 SECONDS (23.9-36.7)
--- NOTE | 2024-06-25 12:39 | P.PN_ITS ---
Subjective 2 Subjective: Tolerating regular diet No abdominal pain Going home on Eliquis per hospitalist for PE Vitals/I&O/Wt Last Vital Signs Temp 98.0 F 06/25/24 08:00 Pulse 71 06/25/24 11:55 Resp 14 06/25/24 11:55 BP 112/61 06/25/24 11:55 Pulse Ox 96 06/25/24 11:55 O2 Del Method Room Air 06/25/24 11:55 O2 Flow Rate 2 06/24/24 08:30 06/24/24 06/25/24 06/25/24 22:59 06:59 14:59 Intake Total 638.41 / 2663.629 246.688 / 2910.317 649.4 / 649.4 Balance 638.41 / 2663.629 246.688 / 2910.317 649.4 / 649.4 Weight last 48 hrs Weight 128 lb 8 oz Weight 124 lb 3.2 oz Weight 124 lb 3.2 oz Weight 114 lb Physical Exam 2 Narrative: Chest: Unlabored breathing room air. No lymphadenopathy. Heart: Regular rate and rhythm. Abdomen: Soft, nontender, nondistended. No masses or lymphadenopathy. Data 06/25/24 05:15 06/25/24 05:15 Micro: Microbiology 06/23/24 20:13 Urine Culture - Final Urine,Clean Catch 06/23/24 21:45 Blood Culture - Preliminary Blood NEGATIVE TO DATE 06/23/24 21:51 Blood Culture - Preliminary Blood NEGATIVE TO DATE A&P Assessment and plan (1) Bilateral pulmonary embolism: Plan 73-year-old female admitted with PE. Status post ex lap for SBO. Tolerating regular diet. Discharging today on Eliquis per hospitalist. Attestations 2 Medical Necessity Statement*: IV heparin for PE Coding Level of Care Code 45434 Diagnoses Bilateral pulmonary embolism I26.99 Time Spent (min) 30
== END 2024-06-25 13:05 | disposition home health service (06) | DRG 388 ==
LOC: ER 18:26 → ICU 19:30 → MEDSURG 06-24 20:37
PROVIDERS: Emergency Medicine; Family Medicine; Student in an Organized Health Care Education/Training Program; Admitting Provider Student in an Organized Health Care Education/Training Program; Emergency Provider Family Medicine; PCP Nurse Practitioner Family; Visit Provider Student in an Organized Health Care Education/Training Program
DX: K56.699 Other intestinal obstruction unspecified as to partial versus complete obstruction (principal); I26.94 Multiple subsegmental thrombotic pulmonary emboli without acute cor pulmonale; R41.0 Disorientation, unspecified; R45.1 Restlessness and agitation; I10 Essential (primary) hypertension; R09.02 Hypoxemia
CPT/HCPCS: 36415; 71275; 74177; 80053; 80061; 81001; 82728; 83036; 83540; 83550; 83605; 83690; 83735; 83880; 84100; 84145; 84443; 84484; 85025; 85049; 85610; 85730; 86140; 87040; 87086; 93005; 93306; 93970; 94760; 97116; 97162; 97165; 97535; 99285; J0696; J1644; J2270; J2470

== ENCOUNTER → 2024-06-29 09:25 | Outpatient (BNVA) | payer MEDICARE, SELFPAY | PROVIDERS: PCP Nurse Practitioner Family; Visit Provider Surgery | DX: Z98.890 Other specified postprocedural states (principal); Z87.19 Personal history of other diseases of the digestive system | CPT/HCPCS: 99024 ==

== ENCOUNTER 2024-08-01 09:15 | Emergency (ER) | payer MEDICARE, SELFPAY ==
--- NOTE | 2024-08-01 09:27 | XRR_ITS ---
PROCEDURE INFORMATION: Exam: XR Chest Exam date and time: 08/01/2024 9:32 AM Age: 73 years old Clinical indication: Cough and dyspnea; Additional info: Dyspnea/cough TECHNIQUE: Imaging protocol: Radiologic exam of the chest. Views: 1 view. COMPARISON: CT angio chest PE protcl [id number] 06/23/2024 6:27 PM FINDINGS: Lungs: Unremarkable. No consolidation. Pleural spaces: Unremarkable. No pleural effusion. No pneumothorax. Heart/Mediastinum: Unremarkable. No cardiomegaly. Bones/joints: There is a biconvex scoliosis of the thoracolumbar spine. XR/XR chest 1V portable [id number] IMPRESSION: No acute cardiopulmonary disease.
[2024-08-01 09:57] VITALS: BP 113/64; PULSE 74; RESP 12; TEMP 36.7; O2SAT 96; BMI 23.4
[2024-08-01 10:04] LABS: Basophils # 0.1 10^3/uL (0.0-0.1); Basophils % 1.4 %; Eosinophils # 0.2 10^3/uL (0.0-0.8); Hematocrit 37.1 % (36-47); Lymphocytes # 2.5 10^3/uL (0.8-4.8); Lymphocytes % 38.7 %; Mean Corpuscular HGB Conc 32.3 g/dL (30-55); Mean Corpuscular Hemoglobin 30.8 pg (27-33); Mean Corpuscular Volume 95.1 fl (85-98); Mean Platelet Volume 10.6 fL (7.4-10.4); Monocytes # 0.6 10^3/uL (0.2-0.9); Monocytes % 9.6 %; Neutrophils # 2.98 10^3/uL (1.8-7.7); Neutrophils % 47.1 %; Nucleated Red Blood Cells % 0 %; Platelet Count 290 10^3/cmm (157-399); Red Cell Distribution Width 13.4 % (12.1-15.1); White Blood Count 6.33 10^3/uL (3.29-11.43)
[2024-08-01 10:21] LABS: Alanine Aminotransferase 8 U/L (0-33); Albumin Level 4.1 g/dL (3.5-5.2); Alkaline Phosphatase 73 U/L (35-105); Anion Gap 14.1 (5-19); Aspartate Amino Transferase 17 U/L (0-32); Blood Urea Nitrogen 15 mg/dL (8-23); Carbon Dioxide 27 mmol/L (22-29); Chloride 104 mmol/L (98-107); Creatinine Clr Calc Pharmacy 37.6563; Globulin 2.1 g/dL (1.3-4.6); Glucose 121 mg/dL (65-115); Lipase 27 U/L (13-60); Magnesium 2.2 mg/dL (1.7-2.3); Osmolality Calculated 294 mOsm/kg (285-295); Potassium 4.1 mmol/L (3.5-5.1); Sodium 141 mmol/L (136-145); Total Bilirubin 0.3 mg/dL (0.15-1.2); Total Protein 6.2 g/dL (6.6-8.7)
--- NOTE | 2024-08-01 11:48 | ED_ITS ---
HPI - General Adult 2 General: Chief complaint: Abdominal Pain Stated complaint: post op problems Time Seen by Provider: 08/01/24 11:21 Source: patient Mode of arrival: ambulatory Limitations: no limitations History of Present Illness: 73-year-old female and had hernia repair surgery last month she states that lower part of her incision she has had a little keloid it appears it is formed states she had some slight bleeding from it. She denies any pain denies any fever denies any large amounts of bleeding. Associated symptoms: Deny chest pain, dyspnea, headache(s), nausea, rash or vomiting Related Data Home Medications Medication Instructions Recorded Confirmed triamcinolone acetonide 55 mcg 1 spray intranasal DAILY PRN 04/05/21 08/01/24 nasal spray aerosol (Nasacort) allergies alprazolam 0.5 mg tablet 0.5 mg PO DAILY 03/07/22 08/01/24 amlodipine 5 mg tablet 5 mg PO DAILY 03/07/22 08/01/24 baclofen 10 mg tablet 10 mg PO BID PRN Pain 03/07/22 08/01/24 cetirizine 10 mg capsule (Zyrtec) 10 mg PO DAILY PRN allergies 03/07/22 08/01/24 diltiazem HCl 360 mg capsule,24 360 mg PO DAILY 03/07/22 08/01/24 hr,extended release simvastatin 40 mg tablet 40 mg PO DAILY 03/07/22 08/01/24 trandolapril 4 mg tablet 4 mg PO DAILY 03/07/22 08/01/24 alendronate 70 mg tablet See Rx Instructions .Route .COMPLEX 06/09/24 08/01/24 paroxetine HCl 10 mg tablet 10 mg PO DAILY 06/09/24 08/01/24 apixaban 5 mg tablet (Eliquis) 5 mg PO BID 08/01/24 08/01/24 Allergies Allergy/AdvReac Type Severity Reaction Status Date / Time gabapentin Allergy Unknown Unknown Verified 06/29/24 09:27 Review of Systems 2 Const: Denies: fever(s), chills, body aches or change in appetite ENMT: Denies: throat pain or dental pain Card: Denies: chest pain Resp: Denies: dyspnea GI: Denies: abdominal pain, nausea, vomiting or diarrhea Musc: Denies: neck pain or back pain Skin/Breast: Denies: rash Neuro: Denies: headache(s) PFSH ED 2 PFSH: Medical History Lumbar disc disease with radiculopathy Palpitations Hypertension Diabetes Surgical History H/O exploratory laparotomy Family History Father Hypertension Heart attack Social History Smoking and tobacco/nicotine status: never used tobacco/nicotine Alcohol intake: never Substance/Drug Use: never Course 2 Vital Signs: Vital signs: Vital Signs Temperature 98.0 F 08/01/24 09:57 Pulse Rate 74 08/01/24 09:57 Respiratory Rate 12 08/01/24 09:57 Blood Pressure 113/64 08/01/24 09:57 Pulse Oximetry 96 08/01/24 09:57 Oxygen Delivery Me thod Room Air 08/01/24 09:57 MDM - General Adult Medical Decision Making Patient presents here concern of her abdominal incision scar she does have a keloid on the inferior portion of the scar she had some slight bleeding did cauterized with silver nitrate and is no longer bleeding she is follow-up with her PCP return if worsening she understands agrees to plan Medical Records I reviewed the patient's medical records. Lab Data I reviewed the patient's lab results. 08/01/24 09:43 08/01/24 09:43 Radiology Impressions Chest X-Ray 08/01/24 09:27 IMPRESSION: No acute cardiopulmonary disease. Laboratory Results WBC 6.33 10^3/uL (3.29-11.43) 08/01/24 09:43 RBC 3.90 10^6/uL (3.85-5.65) 08/01/24 09:43 Hgb 12.00 g/dL (11.27-16.99) 08/01/24 09:43 Hct 37.1 % (36-47) 08/01/24 09:43 MCV 95.1 fl (85-98) 08/01/24 09:43 MCH 30.8 pg (27-33) 08/01/24 09:43 MCHC 32.3 g/dL (30-55) 08/01/24 09:43 RDW 13.4 % (12.1-15.1) 08/01/24 09:43 Plt Count 290 10^3/cmm (157-399) 08/01/24 09:43 MPV 10.6 fL (7.4-10.4) H 08/01/24 09:43 Neut % (Auto) 47.1 % 08/01/24 09:43 Lymph % (Auto) 38.7 % 08/01/24 09:43 Benson % (Auto) 9.6 % 08/01/24 09:43 Eos % (Auto) 3.0 % 08/01/24 09:43 Baso % (Auto) 1.4 % 08/01/24 09:43 Neut # (Auto) 2.98 10^3/uL (1.8-7.7) 08/01/24 09:43 Lymph # (Auto) 2.5 10^3/uL (0.8-4.8) 08/01/24 09:43 Benson # (Auto) 0.6 10^3/uL (0.2-0.9) 08/01/24 09:43 Eos # (Auto) 0.2 10^3/uL (0.0-0.8) 08/01/24 09:43 Baso # (Auto) 0.1 10^3/uL (0.0-0.1) 08/01/24 09:43 Nucleated RBC % (auto) 0 % 08/01/24 09:43 Nucleated RBCs # 0.0 /100WBC 08/01/24 09:43 Sodium 141 mmol/L (136-145) 08/01/24 09:43 Potassium 4.1 mmol/L (3.5-5.1) 08/01/24 09:43 Chloride 104 mmol/L (98-107) 08/01/24 09:43 Carbon Dioxide 27 mmol/L (22-29) 08/01/24 09:43 Anion Gap 14.1 (5-19) 08/01/24 09:43 BUN 15 mg/dL (8-23) 08/01/24 09:43 Creatinine 1.0 mg/dL (0.5-0.9) H 08/01/24 09:43 GFR Calculation Not Reportable 08/01/24 09:43 Glucose 121 mg/dL (65-115) H 08/01/24 09:43 Calculated Osmolality 294 mOsm/kg (285-295) 08/01/24 09:43 Lactic Acid 1.0 mmol/L (0.5-2.2) 08/01/24 09:43 Calcium 9.0 mg/dL (8.5-10.5) 08/01/24 09:43 Magnesium 2.2 mg/dL (1.7-2.3) 08/01/24 09:43 Total Bilirubin 0.3 mg/dL (0.15-1.2) 08/01/24 09:43 AST 17 U/L (0-32) 08/01/24 09:43 ALT 8 U/L (0-33) 08/01/24 09:43 Alkaline Phosphatase 73 U/L (35-105) 08/01/24 09:43 Total Protein 6.2 g/dL (6.6-8.7) L 08/01/24 09:43 Albumin 4.1 g/dL (3.5-5.2) 08/01/24 09:43 Globulin 2.1 g/dL (1.3-4.6) 08/01/24 09:43 Lipase 27 U/L (13-60) 08/01/24 09:43 No radiology studies performed this visit Discharge Plan Discharge Patient Disposition: Home Clinical Impression: Scarring, keloid Condition: Stable Prescriptions: No Action triamcinolone acetonide [Nasacort] 55 mcg aerosol,spray 1 spray intranasal DAILY PRN (Reason: allergies) trandolapril 4 mg tablet 4 mg PO DAILY diltiazem HCl 360 mg capsule,extended release 24 hr 360 mg PO DAILY Hold Instructions: Resume on 06/27/24. hold until you see primary care amlodipine 5 mg tablet 5 mg PO DAILY Hold Instructions: Resume on 06/27/24. resume thursday simvastatin 40 mg tablet 40 mg PO DAILY alprazolam 0.5 mg tablet 0.5 mg PO DAILY baclofen 10 mg tablet 10 mg PO BID PRN (Reason: Pain) Zyrtec 10 mg Capsule 10 mg PO DAILY PRN (Reason: allergies) paroxetine HCl 10 mg tablet 10 mg PO DAILY alendronate 70 mg tablet See Rx Instructions .ROUTE .COMPLEX Rx Instructions: TAKE ONE TABLET BY MOUTH ONCE a WEEK. TAKE with 6-8 ounces of plain water, AT least 30 minutes BEFORE first food, beverage, OR medication of THE DAY. on Thursday polyethylene glycol 3350 17 gram Powder In Packet 17 g PO BID Qty: 14 0RF Eliquis DVT-PE Treat 30D Start 5 mg (74 tabs) tablets,dose pack See Rx Instructions .ROUTE .COMPLEX Qty: 74 0RF Rx Instructions: orally per package directions Discharge Orders: Discharge ED (Routine); Ordered 08/01/24 Ordered By: Coretta Black Referrals: Kayy Carter FNP [Primary Care Provider] - 4-7 days Discharge Diet: Advance as tolerated Discharge Activity: Resume usual activity Activity Restrictions/Additional Instructions: A keloid scar is a thick raised scar. It can occur wherever you have a skin injury but usually forms on earlobes, shoulders, cheeks or the chest. If you're prone to developing keloids, you might get them in more than one place. A keloid scar isn't harmful to your physical health, but it can cause emotional distress. Prevention or early treatment is aldridge. Keloid scar treatment is possible. If you don't like how a keloid looks or feels, talk with a doctor about how to flatten or remove it. Even with treatment, a keloid can last for years or recur. Symptoms A keloid scar may form within months to years of the inciting injury. Signs and symptoms might include: * Thick, irregular scarring, typically on the earlobes, shoulders, cheeks or middle chest * Shiny, hairless, lumpy, raised skin * Varied size, depending on the size of the original injury and when the keloid stops growing * Varied texture, from soft to firm and rubbery * Reddish, brown or purplish, depending on your skin color * Itchiness * Discomfort Coding Level of Care Code ED Associate Chief Nurse for Booker Yadav
[2024-08-01] MEDS: silver nitrate applicator 1 EACH TOPICAL (12:05)
[2024-08-01 12:11] VITALS: BP 113/64; PULSE 74; O2SAT 96
== END 2024-08-01 12:13 | disposition home or self-care (01) ==
PROVIDERS: Family Medicine; Emergency Provider Emergency Medicine; PCP Nurse Practitioner Family
DX: L91.0 Hypertrophic scar (principal); Z79.01 Long term (current) use of anticoagulants; I10 Essential (primary) hypertension; E11.9 Type 2 diabetes mellitus without complications
CPT/HCPCS: 36415; 71045; 80053; 83605; 83690; 83735; 85025; 99284

== ENCOUNTER 2024-09-15 07:40 | Emergency (ER) | payer MEDICARE, SELFPAY ==
[2024-09-15] VITALS (8 sets, daily range): BP systolic 126–166; BP diastolic 64–122; PULSE 67–116; RESP 16–18; TEMP 36.8; O2SAT 95–98; BMI 24.4
--- NOTE | 2024-09-15 08:04 | XR_ITS ---
WS: [id number] RIGHT ANKLE: 3 VIEW(S) TECHNIQUE: AP, oblique(s) and lateral. HISTORY: FALL, PAIN COMPARISON: None available. Cortical irregularity involving the distal fibular tip. This could potentially represent an avulsion fracture or a remote injury. No significant amount of soft tissue edema. Osteopenia. No widening of the ankle mortise. No significant degenerative changes at the joint spaces. Peripheral vascular calcifications. XR/XR ankle RT min 3V* [id number] IMPRESSION: Age-indeterminate tiny avulsion from the fibular tip. Correlate to area of pain .
--- NOTE | 2024-09-15 08:04 | XR_ITS ---
WS: [id number] RIGHT FOOT: 3 VIEW(S) TECHNIQUE: AP, oblique and lateral. HISTORY: FALL, PAIN COMPARISON: None available. Marked osteopenia. Hammertoe deformities. No definite fractures are identified. Normal tarsal/metatarsal alignment. Peripheral vascular calcifications. XR/XR foot RT min 3V* [id number] IMPRESSION: 1. Osteopenia with peripheral vascular disease. 2. No acute fracture is identified.
--- NOTE | 2024-09-15 08:15 | ED_ITS ---
HPI - Fall 2 General: Chief Complaint: Fall Stated Complaint: R foot pain Time Seen by Provider: 09/15/24 08:14 History of Present Illness: 73-year-old female here with dementia is presenting here with her for right ankle pain. She had twisted her ankle 2 days ago and has been ambulating on it and is now complaining of severe right ankle pain. No other injury reported she did not hit her head she denies any headache neck or back pain no chest pain or abdominal pain. Patient is at baseline mentation as per . She also reports some urinary symptoms but has not had any fever no vomiting, no significant abdominal pain. Associated symptoms-after fall: Denies abdominal pain, chest pain, confusion, headache(s) or neck pain Related Data Home Medications Medication Instructions Recorded Confirmed triamcinolone acetonide 55 mcg 1 spray intranasal DAILY PRN 04/05/21 09/15/24 nasal spray aerosol (Nasacort) allergies alprazolam 0.5 mg tablet 0.5 mg PO DAILY 03/07/22 09/15/24 amlodipine 5 mg tablet 5 mg PO DAILY 03/07/22 09/15/24 baclofen 10 mg tablet 10 mg PO BID PRN Pain 03/07/22 09/15/24 cetirizine 10 mg capsule (Zyrtec) 10 mg PO DAILY PRN allergies 03/07/22 09/15/24 diltiazem HCl 360 mg capsule,24 360 mg PO DAILY 03/07/22 09/15/24 hr,extended release simvastatin 40 mg tablet 40 mg PO DAILY 03/07/22 09/15/24 trandolapril 4 mg tablet 4 mg PO DAILY 03/07/22 09/15/24 alendronate 70 mg tablet See Rx Instructions .Route .COMPLEX 06/09/24 09/15/24 paroxetine HCl 10 mg tablet 10 mg PO DAILY 06/09/24 09/15/24 apixaban 5 mg tablet (Eliquis) 5 mg PO BID 08/01/24 09/15/24 Previous Rx's Medication Instructions Recorded peg 3350-electrolytes 236 240 ml PO Q10M #4,000 mL 09/15/24 gram-22.74 gram-6.74 gram-5.86 gram solution (Golytely) sulfamethoxazole 800 1 tab PO Q12H 10 days #20 tabs 09/15/24 mg-trimethoprim 160 mg tablet (Bactrim DS) Allergies Allergy/AdvReac Type Severity Reaction Status Date / Time gabapentin Allergy Unknown Unknown Verified 06/29/24 09:27 Review of Systems 2 Const: Denies: fever(s) or chills Eyes: Denies: change in vision or blurry vision ENMT: Denies: throat pain Card: Denies: chest pain, palpitations or irregular heart rhythm Resp: Denies: dyspnea or productive cough GI: Denies: abdominal pain, nausea or vomiting : Reports: dysuria and urinary frequency; Denies: flank pain Musc: Reports: extremity pain; Denies: neck pain or back pain Skin/Breast: Denies: rash Neuro: Denies: headache(s) or confusion Rasheed/Lymph: Denies: easy bruising or easy bleeding PFSH ED 2 PFSH: Medical History Lumbar disc disease with radiculopathy Palpitations Hypertension Diabetes Surgical History H/O exploratory laparotomy Family History Father Hypertension Heart attack Social History Smoking and tobacco/nicotine status: never used tobacco/nicotine Alcohol intake: never Substance/Drug Use: never Physical Exam 2 Narrative: EXAM NARRATIVE: Const: no acute distress, cooperative, well appearing HENMT: normocephalic, atraumatic, normal facial exam, posterior oropharynx normal w/ no tonsillar erythema or exudates Eye: Equal, round and reactive pupils present and EOMs intact bilaterally Neck/C-Spine: trachea midline, no stridor, no midline c spine tenderness , no paraspinal neck muscle tenderness Chest: no rib or chest wall tenderness Resp: normal respiratory effort, No retractions, No use of accessory muscles and clear to auscultation bilaterally Cardio: COMMON NORMALS: regular rate and regular rhythm RATE: regular rate RHYTHM: regular rhythm GI: Lower abdominal tenderness, otherwise normal to inspection, no tenderness, nondistended, normoactive bowel sounds present Musculoskeletal: There is right ankle ecchymosis and tenderness at the lateral malleolus, distally neurovascularly intact with normal DP PT pulses and cap refill, otherwise extremity exam is unremarkable, no midline thoracic or lumbar spine tenderness, COMMON NORMALS: no pedal edema Neuro: GCS 15, AO x 4, normal speech, CN intact, normal motor exam, normal sensory exam, no ataxia Psych: cooperative, appropriate mood and affect Skin: no rashes or lesions Course 2 Vital Signs: Vital signs: Vital Signs Temperature 98.3 F 09/15/24 08:06 Pulse Rate 73 09/15/24 11:45 Respiratory Rate 16 09/15/24 11:45 Blood Pressure 128/87 09/15/24 11:45 Pulse Oximetry 96 09/15/24 11:45 Oxygen Delivery Me thod Room Air 09/15/24 10:55 MDM - Fall Medical Decision Making Workup remarkable for distal fibular avulsion fracture, extremity was splinted in a short leg posterior splint, patient was instructed to be nonweightbearing, limb was evaluated after the splint and is neurovascularly intact and splint appears to be comfortable for the patient, she is markedly improved after pain medicine and splint application, patient and at bedside were instructed to be nonweightbearing and they will be able to care for her at home, she has a wheelchair and will be able to get around without putting weight on her foot. Otherwise CT abdomen pelvis and labs remarkable for acute UTI, there is significant amount of stool burden though no bowel obstruction no significant infectious symptoms no sepsis. Will prescribe additional laxatives as well as antibiotics for UTI. Discussed all these results with the patient and the at bedside and they are comfortable with going home. Return instructions provided. Lab Data 09/15/24 09:16 09/15/24 09:16 Radiology Impressions Ankle X-Ray 09/15/24 08:04 IMPRESSION: Age-indeterminate tiny avulsion from the fibular tip. Correlate to area of pain. Foot X-Ray 09/15/24 08:04 IMPRESSION: 1. Osteopenia with peripheral vascular disease. 2. No acute fracture is identified. Abdomen/Pelvis CT 09/15/24 09:04 IMPRESSION: 1. Severe constipation and fecal retention. Cecal distention to 5.2 cm. 2. No GI tract obstruction identified. 3. No free fluid or free air noted. 4. Prior cholecystectomy. 5. Mildly prominent common bile duct is probably related to the cholecystectomy. 6. Marked distention of the urinary bladder with mild diffuse bladder wall thickening. Bladder wall thickening is diffuse and may be due to cystitis or chronic outlet obstruction. 7. No renal obstruction. Laboratory Results WBC 8.60 10^3/uL (3.29-11.43) 09/15/24 09:16 RBC 4.31 10^6/uL (3.85-5.65) 09/15/24 09:16 Hgb 13.50 g/dL (11.27-16.99) 09/15/24 09:16 Hct 39.0 % (36-47) 09/15/24 09:16 MCV 90.5 fl (85-98) 09/15/24 09:16 MCH 31.3 pg (27-33) 09/15/24 09:16 MCHC 34.6 g/dL (30-55) 09/15/24 09:16 RDW 13.4 % (12.1-15.1) 09/15/24 09:16 Plt Count 327 10^3/cmm (157-399) 09/15/24 09:16 MPV 9.8 fL (7.4-10.4) 09/15/24 09:16 Neut % (Auto) 68.2 % 09/15/24 09:16 Lymph % (Auto) 21.4 % 09/15/24 09:16 [place] % (Auto) 8.4 % 09/15/24 09:16 Eos % (Auto) 0.8 % 09/15/24 09:16 Baso % (Auto) 0.9 % 09/15/24 09:16 Neut # (Auto) 5.86 10^3/uL (1.8-7.7) 09/15/24 09:16 Lymph # (Auto) 1.8 10^3/uL (0.8-4.8) 09/15/24 09:16 [place] # (Auto) 0.7 10^3/uL (0.2-0.9) 09/15/24 09:16 Eos # (Auto) 0.1 10^3/uL (0.0-0.8) 09/15/24 09:16 Baso # (Auto) 0.1 10^3/uL (0.0-0.1) 09/15/24 09:16 Nucleated RBC % (auto) 0 % 09/15/24 09:16 Nucleated RBCs # 0.0 /100WBC 09/15/24 09:16 Sodium 142 mmol/L (136-145) 09/15/24 09:16 Potassium 3.6 mmol/L (3.5-5.1) 09/15/24 09:16 Chloride 105 mmol/L (98-107) 09/15/24 09:16 Carbon Dioxide 21 mmol/L (22-29) L 09/15/24 09:16 Anion Gap 19.6 (5-19) H 09/15/24 09:16 BUN 21 mg/dL (8-23) 09/15/24 09:16 Creatinine 1.1 mg/dL (0.5-0.9) H 09/15/24 09:16 GFR Calculation Not Reportable 09/15/24 09:16 Glucose 129 mg/dL (65-115) H 09/15/24 09:16 Calculated Osmolality 299 mOsm/kg (285-295) H 09/15/24 09:16 Calcium 9.9 mg/dL (8.5-10.5) 09/15/24 09:16 Total Bilirubin 0.4 mg/dL (0.15-1.2) 09/15/24 09:16 AST 12 U/L (0-32) 09/15/24 09:16 ALT < 5 U/L (0-33) 09/15/24 09:16 Alkaline Phosphatase 91 U/L (35-105) 09/15/24 09:16 Total Protein 6.8 g/dL (6.6-8.7) 09/15/24 09:16 Albumin 4.1 g/dL (3.5-5.2) 09/15/24 09:16 Globulin 2.7 g/dL (1.3-4.6) 09/15/24 09:16 Urine Color Yellow (Yellow) 09/15/24 10:51 Urine Appearance Turbid (CLEAR) A 09/15/24 10:51 Urine pH 6.5 (5-7) 09/15/24 10:51 Ur Specific [place] 1.023 (1.005-1.030) 09/15/24 10:51 Urine Protein 1+ (Negative) A 09/15/24 10:51 Urine Glucose (UA) Negative (Normal) 09/15/24 10:51 Urine Ketones Negative (Negative) 09/15/24 10:51 Urine Blood 2+ (Negative) A 09/15/24 10:51 Urine Nitrate Negative (Negative) 09/15/24 10:51 Urine Bilirubin Negative (Negative) 09/15/24 10:51 Urine Urobilinogen 1.0 mg/dL (Negative) 09/15/24 10:51 Ur Leukocyte Esterase 3+ (Negative) A 09/15/24 10:51 Urine RBC 0-4 /hpf (0-2) H 09/15/24 10:51 Urine WBC >100 /hpf (0-5) H 09/15/24 10:51 Ur Squamous Epith Cells 0-4 /hpf (0-5) H 09/15/24 10:51 Amorphous Sediment Not Reportable 09/15/24 10:51 Urine Bacteria 2+ /hpf (NONE) H 09/15/24 10:51 Hyaline Casts 10-15 /lpf H 09/15/24 10:51 Urine Mucus 1+ /hpf 09/15/24 10:51 All radiology interpretation(s) finalized by discharge Discharge Plan Discharge Patient Disposition: Home Clinical Impression: Constipation, Acute lower UTI, Ankle fracture, right Condition: Stable Prescriptions: New sulfamethoxazole-trimethoprim [Bactrim DS] 800-160 mg tablet 1 tab PO Q12H 10 Days Qty: 20 0RF peg 3350-electrolytes [Golytely] 236-22.74-6.74 -5.86 gram recon soln 240 ml PO Q10M Qty: 4000 0RF Rx Instructions: until fecal effluent is clear No Action triamcinolone acetonide [Nasacort] 55 mcg aerosol,spray 1 spray intranasal DAILY PRN (Reason: allergies) trandolapril 4 mg tablet 4 mg PO DAILY diltiazem HCl 360 mg capsule,extended release 24 hr 360 mg PO DAILY Hold Instructions: Resume on 06/27/24. hold until you see primary care amlodipine 5 mg tablet 5 mg PO DAILY Hold Instructions: Resume on 06/27/24. resume thursday simvastatin 40 mg tablet 40 mg PO DAILY alprazolam 0.5 mg tablet 0.5 mg PO DAILY baclofen 10 mg tablet 10 mg PO BID PRN (Reason: Pain) Zyrtec 10 mg Capsule 10 mg PO DAILY PRN (Reason: allergies) paroxetine HCl 10 mg tablet 10 mg PO DAILY alendronate 70 mg tablet See Rx Instructions .ROUTE .COMPLEX Rx Instructions: TAKE ONE TABLET BY MOUTH ONCE a WEEK. TAKE with 6-8 ounces of plain water, AT least 30 minutes BEFORE first food, beverage, OR medication of THE DAY. on Thursday Eliquis 5 mg tablet 5 mg PO BID Discharge Orders: Discharge ED (Routine); Ordered 09/15/24 Ordered By: Dennis Mace Referrals: Jama Balderrama DO [Physician] - 4-7 days (right ankle fracture) Carter,ZANE Sultana [Primary Care Provider] - Discharge Activity: Wheelchair as instructed Patient Instructions: Constipation (ED), Ankle Fracture (ED), Urinary Tract Infection in Women (ED) Activity Restrictions/Additional Instructions: No weight bearing on right foot. Coding Level of Care Code ED Service Secretary for Booker Yadav
[2024-09-15] MEDS: morphine 4 mg/mL SDV 1 mL IM (08:31)
--- NOTE | 2024-09-15 09:04 | CT_ITS ---
WS: [id number] CT ABDOMEN AND PELVIS WITH CONTRAST HISTORY: Lower abdominal pain with fever. TECHNIQUE: Imaging performed of the abdomen and pelvis with IV contrast. Single phase imaging of the abdomen. Coronal and sagittal reformats are submitted. All CT scans at [facility] use at [address] one of these dose optimization techniques: automated exposure control; mA and/or kV adjustment per patient size (includes targeted exams where dose is matched to clinical indication); or iterative re construction. IV CONTRAST: Omnipaque 350; 100 mL IV. Oral contrast: No DLP: 312.06 mGy.cm COMPARISON: 06/23/2024 Lower thorax: Lung bases are clear. Heart is normal size. No hiatal hernia. Liver/biliary system: Normal size liver. There are a few scattered too small to characterize hypodens ities which were present on the prior study also. There is mild central bile duct dilatation. Common bile duct is slightly prominent measuring 9.5 mm. Gallbladder: Status post cholecystectomy. Pancreas: Normal size pancreas and pancreatic duct. No adjacent inflammation. Spleen: Normal size spleen. No mass or infarct. Adrenal glands: Normal. Right kidney: Normal size with no obstruction. Scattered cysts are unchanged. Left kidney: Normal size with a few scattered cortical cysts. No obstruction. Aorta: Advanced atherosclerotic plaque within the abdominal aorta. Mild stenosis origin of the celiac axis. SMA is also patent. Lymphadenopathy: None. Free fluid: None. GI tract: Stomach is minimally distended with fluid. No small bowel obstruction. Diffuse constipation . Cecum is markedly dilated with feces and liquid stool with a diameter of 5.2 cm. Abdominal wall: Unremarkable abdominal wall. No hernia. Mild soft tissue anasarca. Pelvis: The bladder is significantly distended. There is mild bladder wall thickening. Wall thickenin g is diffuse. 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 Severe chronic L2 compressio n fracture. Bilateral femoral head osteonecrosis. CT/CT abdomen pelvis w con* [id number] IMPRESSION: 1. Severe constipation and fecal retention. Cecal distention to 5.2 cm. 2. No GI tract obstruction identified. 3. No free fluid or free air noted. 4. Prior cholecystectomy. 5. Mildly prominent common bile duct is probably related to the cholecystectom y. 6. Marked distention of the urinary bladder with mild diffuse bladder wall thi ckening. Bladder wall thickening is diffuse and may be due to cystitis or chron ic outlet obstruction. 7. No renal obstruction.
[2024-09-15] MEDS: sodium chloride 0.9% 500 ML 999 ML IV (09:25)
[2024-09-15] MEDS: morphine 4 mg/mL SDV 1 mL IVP (09:25)
[2024-09-15 09:28] LABS: Basophils # 0.1 10^3/uL (0.0-0.1); Basophils % 0.9 %; Eosinophils # 0.1 10^3/uL (0.0-0.8); Eosinophils % 0.8 %; Lymphocytes # 1.8 10^3/uL (0.8-4.8); Lymphocytes % 21.4 %; Mean Corpuscular HGB Conc 34.6 g/dL (30-55); Mean Corpuscular Hemoglobin 31.3 pg (27-33); Mean Corpuscular Volume 90.5 fl (85-98); Mean Platelet Volume 9.8 fL (7.4-10.4); Monocytes # 0.7 10^3/uL (0.2-0.9); Monocytes % 8.4 %; Neutrophils # 5.86 10^3/uL (1.8-7.7); Neutrophils % 68.2 %; Nucleated Red Blood Cells % 0 %; Platelet Count 327 10^3/cmm (157-399); Red Blood Count 4.31 10^6/uL (3.85-5.65); Red Cell Distribution Width 13.4 % (12.1-15.1)
[2024-09-15 09:41] LABS: Alanine Aminotransferase < 5 U/L (0-33); Albumin Level 4.1 g/dL (3.5-5.2); Alkaline Phosphatase 91 U/L (35-105); Anion Gap 19.6 (5-19); Aspartate Amino Transferase 12 U/L (0-32); Blood Urea Nitrogen 21 mg/dL (8-23); Calcium 9.9 mg/dL (8.5-10.5); Carbon Dioxide 21 mmol/L (22-29); Chloride 105 mmol/L (98-107); Creatinine Clr Calc Pharmacy 34.8658; Globulin 2.7 g/dL (1.3-4.6); Glucose 129 mg/dL (65-115); Osmolality Calculated 299 mOsm/kg (285-295); Potassium 3.6 mmol/L (3.5-5.1); Sodium 142 mmol/L (136-145); Total Bilirubin 0.4 mg/dL (0.15-1.2); Total Protein 6.8 g/dL (6.6-8.7)
[2024-09-15] MEDS: iohexol 350 mg/mL 500 mL Btl (per mL) IV (10:14)
[2024-09-15 11:00] LABS: Bilirubin Urine Negative (Negative); Blood Urine 2+ (Negative); Glucose Urine UA Negative (Normal); Ketones Urine Negative (Negative); Leukocyte Esterase Urine 3+ (Negative); Nitrate Urine Negative (Negative); Protein Urine 1+ (Negative); Specific Gravity, Urine 1.023 (1.005-1.030); Urine Appearance Turbid (CLEAR); Urine Color Yellow (Yellow); pH Urine 6.5 (5-7)
[2024-09-15 11:03] LABS: Add Urine Microscopic? YES
[2024-09-15 11:24] LABS: RBC Urine 0-4 /hpf (0-2); UA Manual Slide Review YES; UA Slide Review UA Slide Review Perf
[2024-09-15 11:27] LABS: Add Urine Culture? Yes; Bacteria Urine 2+ /hpf; Mucus Urine 1+ /hpf; Squamous Epithelial Cell Urine 0-4 /hpf (0-5); WBC Urine >100 /hpf (0-5)
[2024-09-15] MEDS: cefTRIAXone 1,000 mg SDV 1000 MG IVP (11:44)
== END 2024-09-15 12:32 | disposition home or self-care (01) ==
PROVIDERS: Emergency Provider Emergency Medicine; PCP Nurse Practitioner Family
DX: K59.00 Constipation, unspecified (principal); N39.0 Urinary tract infection, site not specified; S82.892A Other fracture of left lower leg, initial encounter for closed fracture; X58.XXXA Exposure to other specified factors, initial encounter; Z79.01 Long term (current) use of anticoagulants; E11.9 Type 2 diabetes mellitus without complications; I10 Essential (primary) hypertension
CPT/HCPCS: 29515; 36415; 73610; 73630; 74177; 80053; 81001; 85025; 87077; 87086; 87186; 96361; 96372; 96374; 96375; 99285; J0696; J2270; J7040

== ENCOUNTER 2024-09-28 15:21 | Outpatient (CLI) | payer MEDICARE, SELFPAY | END 2024-09-28 15:22 | disposition home or self-care (01) | LOC: SPT 15:22 | PROVIDERS: PCP Nurse Practitioner Family; Visit Provider Podiatrist Foot & Ankle Surgery | DX: Z46.89 Encounter for fitting and adjustment of other specified devices (principal); S82.831D Other fracture of upper and lower end of right fibula, subsequent encounter for closed fracture with routine healing; X58.XXXD Exposure to other specified factors, subsequent encounter | CPT/HCPCS: 97760; L1902 ==

== ENCOUNTER → 2024-10-03 11:00 | Outpatient (BNVA) | payer MEDICARE, SELFPAY | PROVIDERS: PCP Nurse Practitioner Family; Visit Provider Anesthesiology Pain Medicine | DX: M51.16 Intervertebral disc disorders with radiculopathy, lumbar region | CPT/HCPCS: 99214 ==

== ENCOUNTER → 2024-10-12 12:50 | Outpatient (BNVA) | payer MEDICARE, SELFPAY | PROVIDERS: PCP Nurse Practitioner Family; Visit Provider Podiatrist Foot & Ankle Surgery | DX: S82.831A Other fracture of upper and lower end of right fibula, initial encounter for closed fracture; X58.XXXA Exposure to other specified factors, initial encounter | CPT/HCPCS: 99213 ==

== ENCOUNTER → 2024-10-25 13:55 | Outpatient (BNVA) | payer MEDICARE, SELFPAY | PROVIDERS: PCP Nurse Practitioner Family; Visit Provider Anesthesiology Pain Medicine | DX: M47.816 Spondylosis without myelopathy or radiculopathy, lumbar region (principal); M54.9 Dorsalgia, unspecified | CPT/HCPCS: 64493; 64494; 64495; J3490 ==

== ENCOUNTER → 2024-11-22 10:08 | Outpatient (BNVA) | payer MEDICARE, SELFPAY | PROVIDERS: PCP Nurse Practitioner Family; Visit Provider Anesthesiology Pain Medicine | DX: M51.16 Intervertebral disc disorders with radiculopathy, lumbar region (principal) | CPT/HCPCS: 99214 ==

== ENCOUNTER → 2024-11-30 14:09 | Outpatient (BNVA) | payer MEDICARE, SELFPAY | PROVIDERS: PCP Nurse Practitioner Family; Visit Provider Anesthesiology Pain Medicine | DX: M47.816 Spondylosis without myelopathy or radiculopathy, lumbar region (principal); M54.9 Dorsalgia, unspecified | CPT/HCPCS: 64493; 64494; 64495; J3490 ==

== ENCOUNTER → 2024-12-19 14:40 | Outpatient (BNVA) | payer MEDICARE, SELFPAY | PROVIDERS: PCP Nurse Practitioner Family; Visit Provider Anesthesiology Pain Medicine | DX: M54.9 Dorsalgia, unspecified (principal); M51.16 Intervertebral disc disorders with radiculopathy, lumbar region | CPT/HCPCS: 99214 ==

== ENCOUNTER 2025-05-01 12:26 | Outpatient (CLI) | payer MEDICARE, SELFPAY ==
--- NOTE | 2025-05-01 12:44 | XRR_ITS ---
PROCEDURE INFORMATION: Exam: XR Complete Acute Abdomen Series Including Chest Exam date and time: 05/01/2025 12:53 PM Age: 74 years old Clinical indication: Abdominal pain; Localized; Left lower quadrant (llq); Prior surgery; Surgery date: 6+ months; Surgery type: Gb, bowel; Additional info: Left lower quadrant pain TECHNIQUE: Imaging protocol: Radiologic exam. Complete acute abdomen series, including 2 or more views of the abdomen and a single view chest. COMPARISON: 1. CT abdomen pelvis w con* [id number] 09/15/2024 10:10 AM 2. CR XR abdomen 1V* [id number] 06/14/2024 2:40 PM FINDINGS: Lungs: Hazy right midlung opacity. Lungs are otherwise clear. Pleural spaces: No pleural effusion. No pneumothorax. Heart/Mediastinum: Cardiomediastinal silhouette is normal. Gastrointestinal tract: Nonobstructive bowel gas pattern. [id number] stool burden. Intraperitoneal space: No evidence of free air. Organs: Cholecystectomy clips in the right upper abdomen. Vasculature: Aortic calcifications. Bones/joints: Biconvex scoliosis and degenerative change of the included spine again demonstrated. Soft tissues: Unremarkable. XR/XR acute abdomen series [id number] IMPRESSION: 1. Nonobstructive bowel gas pattern. Sohokdqv-[id number] stool burden. 2. Hazy right midlung opacity which may be secondary to atelectasis/infiltrate and/or overlying soft tissues. Consider repeat upright PA and lateral radiographs with good inspiratory effort to reassess.
== END 2025-05-01 12:27 | disposition home or self-care (01) ==
PROVIDERS: PCP Nurse Practitioner Family; Visit Provider Nurse Practitioner Family
DX: R10.32 Left lower quadrant pain (principal)
CPT/HCPCS: 74022

== ENCOUNTER 2025-05-09 10:29 | Outpatient (CLI) | payer MEDICARE, SELFPAY ==
--- NOTE | 2025-05-09 10:38 | XR_ITS ---
WS: [id number] KUB, AP view, 05/09/2025 Clinical Data: LOWER ABDOMINAL PAIN, CHRONIC KIDNEY DISEASE Comparison: Acute abdomen series, 05/01/2025 Findings: No abnormal intraabdominal masses or calcifications are seen. There is no dilatated small bowel or evidence of obstruction. There are cholecystectomy clips in the right upper quadrant. There is a moderate amount of fecal material throughout the colon. There is a levoscoliosis of the lumbar spine with osteoarthritis of the lumbar vertebral bodies. The abdominal aorta shows calcification but no aneurysm. XR/XR KUB [id number] Impression: Moderate fecal material in the colon.
--- NOTE | 2025-05-09 10:40 | XR_ITS ---
WS: [id number] Chest 2 views, 05/09/2025 Clinical Data: ATELECTASIS Comparison: Portable chest, 08/01/2024 Findings: No nodules, masses or effusions are seen. The heart is normal. The pulmonary vascularity is not increased. No pneumonia or pneumothorax is seen. The aortic arch shows calcification and there is tortuosity of the descending thoracic aorta. The diaphragms are flattened. There is a marked dextroscoliosis of the thoracic spine. There is an old fracture of the right sixth rib. There are cholecystectomy clips in the right upper quadrant. XR/XR chest 2V* [id number] Impression: Hyperinflation and atherosclerosis.
== END 2025-05-09 10:30 | disposition home or self-care (01) ==
PROVIDERS: PCP Nurse Practitioner Family; Visit Provider Nurse Practitioner Family
DX: R10.30 Lower abdominal pain, unspecified (principal); N18.9 Chronic kidney disease, unspecified
CPT/HCPCS: 71046; 74018